=== PATIENT | female | born 1980 | race Caucasian/White ===

== ENCOUNTER 2016-09-10 15:02 | Inpatient (IN) ==
--- NOTE | 2016-09-10 15:21 | Emergency Department Note ---
Disposition Clinical Impression: Community acquired pneumonia, Transaminitis Sepsis Qualifiers: Sepsis type: sepsis due to unspecified organism Qualified Code(s): A41.9 - Sepsis, unspecified organism Disposition: Admitted As Inpatient Condition: Fair Time of Disposition: 16:21 SOB HPI - General Chief Complaint: ED Shortness of Breath/Dyspnea Stated Complaint: SADIA Time Seen by Provider: 09/10/16 15:09 Source: patient, family Mode of arrival: wheelchair Limitations: no limitations Nursing Notes Reviewed: Yes Vital Signs Reviewed: Yes - History of Present Illness Patient presents to the ED with the chief complaint of shortness of breath. Patient reports she was diagnosed with pneumonia about 3 weeks ago and was prescribed azithromycin. She finished this 4 days ago and has been steadily declining since then. She is complaining of increasing shortness of breath. States that she is getting dyspneic at rest now and she is also complaining of some pleuritic chest pain along her left inframammary fold radiating through to her back, despite her reports the pneumonia is on the right. She complains of a fever up to 104. Some nausea and vomiting as well. Mild productive cough that is green and yellow. No abdominal pain, pain or swelling in her legs. No history of DVT, PE or malignancy. - Related Data Home Medications Medication Instructions Recorded Confirmed Cholecalciferol (D-3) [Vitamin D] 1,000 unit PO DAILY 09/10/16 09/10/16 Gabapentin [Neurontin] 800 mg PO TID 09/10/16 09/10/16 Levothyroxine [Synthroid] 88 mcg PO DAILY 09/10/16 09/10/16 Trazodone HCl 100 mg PO DAILY 09/10/16 09/10/16 Allergies Allergy/AdvReac Type Severity Reaction Status Date / Time promethazine [From Phenergan] Allergy Cramping Verified 09/10/16 15:16 of the Muscles Constitutional: Reports: fever Cardiovascular: Reports: chest pain Respiratory: Reports: cough, dyspnea Past Medical History - Past Medical History Attestation: Yes The following information was validated with the patient. Source: patient Medical history: Reports: thyroid disease Psychiatric history: Reports: anxiety, ADHD, bipolar, depression, panic disorder - Social History Smoking Status: Never smoker Smokeless Tobacco Status: No Alcohol use: Reports: none Drug use: Reports: none Physical Exam - General General appearance: alert, anxious - Head Head exam: atraumatic, normocephalic, normal inspection - Eye Eye exam: Present: normal appearance, PERRL, EOMI - ENT ENT exam: mucous membranes dry - Neck Neck exam: Present: normal inspection, full ROM, trachea midline - Chest Chest inspection: Present: normal inspection, symmetric chest wall rise - Respiratory Respiratory exam: Present: respiratory distress (Health), other (Left lower lobe rhonchi). Absent: normal lung sounds bilaterally - Cardiovascular Cardiovascular exam: Present: normal rhythm, tachycardia - Abdominal Exam Abdominal exam: Present: soft, Non-Tender. Absent: tenderness, distention, guarding, rebound, rigidity - Extremities Exam Extremities exam: Present: normal inspection, full ROM. Absent: tenderness, pedal edema - Neurological Exam Neurological exam: Present: alert, oriented X3 - Psychiatric Psychiatric exam: Present: anxious - Skin Skin exam: Present: warm, intact, diaphoresis, pallor Course Course Narrative: Patient does meet sepsis criteria at triage. Will administer antibiotics and 30 mL/kg fluid bolus. We will admit - Reevaluation(s) Reevaluation #1: Chest x-ray shows a large left-sided pneumonia with effusion. Her d-dimer is elevated. However, I favor this to be an acute phase reactant rather than indication of pulmonary embolism. She has a fever. It is tachycardic and has pneumonia on chest x-ray. She is not hypotensive, and there are no murmurs on cardiac auscultation. She has been admitted to the hospitalist service and he did request additional medications such as Zosyn. They will also evaluate her transaminitis as in inpatient Vital Signs Temperature 101.2 F H 09/10/16 15:12 Pulse Rate 146 09/10/16 15:12 Respiratory Rate 20 09/10/16 15:12 Blood Pressure 120/78 09/10/16 15:12 O2 Sat by Pulse Oximetry 89 09/10/16 15:12 Temperature 99 F 09/10/16 19:51 Pulse Rate 128 09/10/16 19:51 Respiratory Rate 19 09/10/16 19:51 Blood Pressure 88/55 09/10/16 19:51 O2 Sat by Pulse Oximetry 96 09/10/16 19:51 Oxygen Delivery Oxygen Delivery Nasal Cannula Shortness of Breath/Dyspnea - Medical Records Medical records reviewed: Yes I reviewed the patient's medical records. - Lab Data Lab results reviewed: Yes I reviewed the patient's lab results. Result diagrams: 09/10/16 15:25 09/10/16 15:25 Lab Results 09/10/16 09/10/16 09/10/16 Range/Units 15:25 15:25 15:25 WBC 6.5 (4.3-11.1) K/mcL RBC 4.23 (3.82-4.97) M/mcL Hgb 13.4 (11.5-15.4) g/dL Hct 41.5 (35.3-44.9) % MCV 98.1 (83.0-100.0) fL MCH 31.7 (28.0-33.3) pg MCHC 32.3 (31.6-35.5) g/dL RDW 12.6 (11.5-14.5) % Plt Count 281 (140-400) K/mcL MPV 9.4 (9.4-12.4) fL Immature Gran % 0.8 (0-4) % Seg Neutrophils % 79.3 % Lymphocytes % 11.1 % Monocytes % 8.0 % Eosinophils % 0.3 % Basophils % 0.5 % Neutrophils # 5.1 (1.6-8.9) K/mcL Lymphocytes # 0.7 (0.6-4.6) K/mcL Monocytes # 0.5 (0.0-1.3) K/mcL Eosinophils # 0.0 (0.0-0.6) K/mcL Basophils # 0.0 (0.0-0.2) K/mcL D-Dimer (0-500) ng/mLFEU Sodium 139 (136-145) mEq/L Potassium 3.4 L (3.5-4.5) mEq/L Chloride 99 (98-109) mEq/L Carbon Dioxide 31 H (19-29) mEq/L BUN 9 (7-20) mg/dL Creatinine 0.65 (0.57-1.11) mg/dL Est GFR ( Amer) > 60 (> 60) Est GFR (Non-Af Amer) > 60 (> 60) BUN/Creatinine Ratio 14 (6-26) Glucose 145 H (70-99) mg/dL Calculated Osmolality 289 (280-300) Lactic Acid 2.7 H (0.5-2.2) mmol/L Calcium 9.1 (8.6-10.8) mg/dL Total Bilirubin 0.6 (0.2-1.2) mg/dL Direct Bilirubin 0.4 (0.0-0.5) mg/dL Indirect Bilirubin 0.2 (0.0-1.2) mg/dL AST 40 H (5-34) Units/L ALT 104 H (0-55) Units/L Alkaline Phosphatase 295 H (38-126) Units/L Troponin I (0-0.03) ng/mL B-Natriuretic Peptide (0-100) pg/mL Serum Total Protein 6.2 (6.0-8.3) g/dL Albumin 2.7 L (3.5-5.0) g/dL Globulin 3.5 (2.4-3.5) g/dL Albumin/Globulin Ratio 0.8 L (1.1-2.2) TSH 4.973 H (0.350-4.840) mcIU/mL Ur Specimen Adequacy Urine Color (Yellow) Urine Clarity (Clear) Urine pH (5.0-8.0) pH Units Ur Specific Boles (1.010-1.025) Urine Protein (Neg-Trace) mg/dL Urine Glucose (UA) (Normal) mg/dL Urine Ketones (Negative) mg/dL Urine Blood (Negative) Urine Nitrite (Negative) Urine Bilirubin (Negative) Urine Urobilinogen (Normal) mg/dL Ur Leukocyte Esterase (Negative) Urine Microscopic RBC (0-3) per hpf Urine Microscopic WBC (0-3) per hpf Ur Squamous Epith Cells (None-Few) per lpf Urine Bacteria (None-Few) per hpf Hyaline Casts (None-Few) per lpf Ur Culture Indicated? (NO) 09/10/16 09/10/16 09/10/16 Range/Units 15:25 15:25 15:25 WBC (4.3-11.1) K/mcL RBC (3.82-4.97) M/mcL Hgb (11.5-15.4) g/dL Hct (35.3-44.9) % MCV (83.0-100.0) fL MCH (28.0-33.3) pg MCHC (31.6-35.5) g/dL RDW (11.5-14.5) % Plt Count (140-400) K/mcL MPV (9.4-12.4) fL Immature Gran % (0-4) % Seg Neutrophils % % Lymphocytes % % Monocytes % % Eosinophils % % Basophils % % Neutrophils # (1.6-8.9) K/mcL Lymphocytes # (0.6-4.6) K/mcL Monocytes # (0.0-1.3) K/mcL Eosinophils # (0.0-0.6) K/mcL Basophils # (0.0-0.2) K/mcL D-Dimer 743 H (0-500) ng/mLFEU Sodium (136-145) mEq/L Potassium (3.5-4.5) mEq/L Chloride (98-109) mEq/L Carbon Dioxide (19-29) mEq/L BUN (7-20) mg/dL Creatinine (0.57-1.11) mg/dL Est GFR ( Amer) (> 60) Est GFR (Non-Af Amer) (> 60) BUN/Creatinine Ratio (6-26) Glucose (70-99) mg/dL Calculated Osmolality (280-300) Lactic Acid (0.5-2.2) mmol/L Calcium (8.6-10.8) mg/dL Total Bilirubin (0.2-1.2) mg/dL Direct Bilirubin (0.0-0.5) mg/dL Indirect Bilirubin (0.0-1.2) mg/dL AST (5-34) Units/L ALT (0-55) Units/L Alkaline Phosphatase (38-126) Units/L Troponin I 0.00 (0-0.03) ng/mL B-Natriuretic Peptide 51 (0-100) pg/mL Serum Total Protein (6.0-8.3) g/dL Albumin (3.5-5.0) g/dL Globulin (2.4-3.5) g/dL Albumin/Globulin Ratio (1.1-2.2) TSH (0.350-4.840) mcIU/mL Ur Specimen Adequacy Urine Color (Yellow) Urine Clarity (Clear) Urine pH (5.0-8.0) pH Units Ur Specific Boles (1.010-1.025) Urine Protein (Neg-Trace) mg/dL Urine Glucose (UA) (Normal) mg/dL Urine Ketones (Negative) mg/dL Urine Blood (Negative) Urine Nitrite (Negative) Urine Bilirubin (Negative) Urine Urobilinogen (Normal) mg/dL Ur Leukocyte Esterase (Negative) Urine Microscopic RBC (0-3) per hpf Urine Microscopic WBC (0-3) per hpf Ur Squamous Epith Cells (None-Few) per lpf Urine Bacteria (None-Few) per hpf Hyaline Casts (None-Few) per lpf Ur Culture Indicated? (NO) 09/10/16 Range/Units 15:43 WBC (4.3-11.1) K/mcL RBC (3.82-4.97) M/mcL Hgb (11.5-15.4) g/dL Hct (35.3-44.9) % MCV (83.0-100.0) fL MCH (28.0-33.3) pg MCHC (31.6-35.5) g/dL RDW (11.5-14.5) % Plt Count (140-400) K/mcL MPV (9.4-12.4) fL Immature Gran % (0-4) % Seg Neutrophils % % Lymphocytes % % Monocytes % % Eosinophils % % Basophils % % Neutrophils # (1.6-8.9) K/mcL Lymphocytes # (0.6-4.6) K/mcL Monocytes # (0.0-1.3) K/mcL Eosinophils # (0.0-0.6) K/mcL Basophils # (0.0-0.2) K/mcL D-Dimer (0-500) ng/mLFEU Sodium (136-145) mEq/L Potassium (3.5-4.5) mEq/L Chloride (98-109) mEq/L Carbon Dioxide (19-29) mEq/L BUN (7-20) mg/dL Creatinine (0.57-1.11) mg/dL Est GFR ( Amer) (> 60) Est GFR (Non-Af Amer) (> 60) BUN/Creatinine Ratio (6-26) Glucose (70-99) mg/dL Calculated Osmolality (280-300) Lactic Acid (0.5-2.2) mmol/L Calcium (8.6-10.8) mg/dL Total Bilirubin (0.2-1.2) mg/dL Direct Bilirubin (0.0-0.5) mg/dL Indirect Bilirubin (0.0-1.2) mg/dL AST (5-34) Units/L ALT (0-55) Units/L Alkaline Phosphatase (38-126) Units/L Troponin I (0-0.03) ng/mL B-Natriuretic Peptide (0-100) pg/mL Serum Total Protein (6.0-8.3) g/dL Albumin (3.5-5.0) g/dL Globulin (2.4-3.5) g/dL Albumin/Globulin Ratio (1.1-2.2) TSH (0.350-4.840) mcIU/mL Ur Specimen Adequacy See below A Urine Color Dark Yellow (Yellow) Urine Clarity Hazy A (Clear) Urine pH 7.5 (5.0-8.0) pH Units Ur Specific Boles > 1.030 H (1.010-1.025) Urine Protein Trace (Neg-Trace) mg/dL Urine Glucose (UA) Normal (Normal) mg/dL Urine Ketones Negative (Negative) mg/dL Urine Blood Negative (Negative) Urine Nitrite Negative (Negative) Urine Bilirubin Small H (Negative) Urine Urobilinogen 2.0 H (Normal) mg/dL Ur Leukocyte Esterase Moderate H (Negative) Urine Microscopic RBC 5-15 H (0-3) per hpf Urine Microscopic WBC 50-100 H (0-3) per hpf Ur Squamous Epith Cells Many H (None-Few) per lpf Urine Bacteria Few (None-Few) per hpf Hyaline Casts Few (None-Few) per lpf Ur Culture Indicated? YES A (NO) - Radiology Data Radiology results reviewed: Yes I reviewed the patient's radiology results. - EKG Data EKG attestation: Yes I reviewed and interpreted this EKG. EKG results narrative: Sinus tach, rate 145, NV interval 136, QRS 84, QTC 347, borderline left axis deviation, no acute ischemic changes S.B.A.R. - S.B.A.R. Situation: Demographics, MOA Background: Presenting Complaint, Relevant PMH, Meds, & Allergies Assessment: Vital Signs, Course and respsone to treatment, Exam Concerns, Patient/Family Expectation, Pertinant Lab Results, Outstanding Labs Recommendation: Barrier(s) to disposition, Recommendation based on pending studies, treatments, or consults S.B.A.R. Report Given to: Dr. Silvestre Carter Repor Time: 16:21 Attestation Statement - Attestation Attestation: I, Tristen Skinner, examined this patient and my medical decision-making was reviewed with the SOIL CHEMIST/PA/Advanced Practice Nurse/Resident Physician. I agree with the documented findings, disposition and treatment plan as described except to the extent set forth below. 36-year-old female presents with concerns of tachycardia, shortness of breath, chest pain. Patient states she was treated for pneumonia with azithromycin which ended yesterday. Patient states she has had failure of outpatient antibiotics in the past. Patient reports being febrile, tachycardic and dyspneic with exertion. Patient has pain to the left lower lateral chest with breathing and palpation. Patient satting 93% on room air, was tachycardic and febrile on initial evaluation.. Cardiac 2 145 with a sinus tachycardia. EKG did not show other signs of SVT with reentrant tachycardia or other rhythm abnormalities. X-ray shows a large infiltrate of the left lower lobe. D-dimer was ordered and returned positive however patient's symptoms are likely secondary to pneumonia and she does not likely have a PE as she is otherwise low risk for PE by history. Patient started on levofloxacin and IV fluids in the emergency department. She will be admitted to the hospitalist for further care and evaluation. Hospitalist requested Zosyn be started as well.
[2016-09-10] MEDS ORDERED: Levofloxacin 750 MG/150 ML 750 MG/150 ML BAG IVPB ONE (15:24)
[2016-09-10 15:39] LABS: Basophils % 0.5 %; Eosinophils % 0.3 %; Hematocrit 41.5 % (35.3-44.9); Hemoglobin 13.4 g/dL (11.5-15.4); Immature Granulocytes % 0.8 % (0-4); Lymphocytes # 0.7 K/mcL (0.6-4.6); Lymphocytes % 11.1 %; Mean Corpuscular HGB Conc 32.3 g/dL (31.6-35.5); Mean Corpuscular Hemoglobin 31.7 pg (28.0-33.3); Mean Corpuscular Volume 98.1 fL (83.0-100.0); Mean Platelet Volume 9.4 fL (9.4-12.4); Monocytes # 0.5 K/mcL (0.0-1.3); Neutrophils # 5.1 K/mcL (1.6-8.9); Platelet Count 281 K/mcL (140-400); Red Blood Count 4.23 M/mcL (3.82-4.97); Red Cell Distribution Width 12.6 % (11.5-14.5); Segmented Neutrophils % 79.3 %
[2016-09-10] MEDS: 0.9 % Sodium Chloride 1,000 ML IVC SCH ×3 (15:45→18:00)
[2016-09-10] MEDS ORDERED: *HR* HYDROmorphone (PF) 1 MG/ML SYRINGE IVP ONE (15:55)
[2016-09-10] MEDS ORDERED: Ondansetron 4 MG/2 ML VIAL IVP ONE (15:55)
[2016-09-10 15:59] LABS: Alanine Aminotransferase 104 Units/L (0-55); Albumin 2.7 g/dL (3.5-5.0); Albumin/Globulin Ratio 0.8 (1.1-2.2); Alkaline Phosphatase 295 Units/L (38-126); Aspartate Amino Transferase 40 Units/L (5-34); BUN/Creatinine Ratio 14 (6-26); Bilirubin,Direct 0.4 mg/dL (0.0-0.5); Bilirubin,Indirect 0.2 mg/dL (0.0-1.2); Bilirubin,Total 0.6 mg/dL (0.2-1.2); Blood Urea Nitrogen 9 mg/dL (7-20); Calcium 9.1 mg/dL (8.6-10.8); Carbon Dioxide 31 mEq/L (19-29); Chloride 99 mEq/L (98-109); Globulin 3.5 g/dL (2.4-3.5); Glucose 145 mg/dL (70-99); Osmolality,Calculated 289 (280-300); Potassium 3.4 mEq/L (3.5-4.5); Sodium 139 mEq/L (136-145); Total Protein 6.2 g/dL (6.0-8.3); eGFR For African Americans > 60 (> 60); eGFR For Non-African Americans > 60 (> 60)
[2016-09-10 16:00] LABS: Bilirubin,Urine Small (Negative); Blood,Urine Negative (Negative); Color,Urine Dark Yellow (Yellow); Glucose,Urine (UA) Normal (Normal); Ketones,Urine Negative (Negative); Leukocyte Esterase,Urine Moderate (Negative); Nitrite,Urine Negative (Negative); PH,Urine 7.5 pH Units (5.0-8.0); Protein,Urine Trace mg/dL (Neg-Trace); Specific Gravity,Urine > 1.030 (1.010-1.025)
[2016-09-10 16:05] LABS: Bacteria,Urine Few per hpf (None-Few); Hyaline Casts,Urine Few per lpf (None-Few); Squamous Epithelial Cell,Urine Many per lpf (None-Few); WBC,Urine 50-100 per hpf (0-3)
[2016-09-10 16:06] LABS: Clarity,Urine Hazy (Clear)
[2016-09-10] MEDS ORDERED: Piperacillin/Tazobactam 4.5 GM in D5% in Water (Mini-Bag+) 100 ML IVPB ONE (16:19)
[2016-09-10 16:20] LABS: Thyroid Stimulating Hormone 4.973 mcIU/mL (0.350-4.840)
[2016-09-10] MEDS ORDERED: *HR* Morphine 2 MG/ML SYRINGE IVP PRN (16:55)
[2016-09-10] MEDS ORDERED: Naloxone 0.4 MG/ML INJ IVP PRN (16:55)
[2016-09-10] MEDS ORDERED: Albuterol 2.5 MG/3 ML NEBULIZER IH PRN (17:00)
--- NOTE | 2016-09-10 17:13 | Internal Med History&Physical ---
<Kacey Baez M - Last Filed: 09/10/16 18:07> Date of Encounter: 09/10/16 Time of Encounter: 17:09 Assessment and Plan (1) Sepsis Current visit: Yes Status: Acute Patient with pneumonia, fever of 101.2 on presentation and tachycardia with HR to 140s. Initial lactate 2.7. Blood cultures drawn and sent. Recheck of lactate ordered 2L fluid boluses given in ED, continue with 0.9NS at 125mL/hr broad spectrum antibiotics started with Levaquin and zosyn. Qualifiers: Sepsis type: sepsis due to unspecified organism Qualified Code(s): A41.9 - Sepsis, unspecified organism (2) Community acquired pneumonia Current visit: Yes Status: Acute Patient reports she was diagnosed 3 weeks ago and completed a course of azithromycin. She continued to get worse. She reports the air-conditioning in her house was dirty and she tried to clean it and black mold came out. She became sick soon after they turned on the air conditioning. CXR shows left mid and lower lung consolidation and probable effusion most compatible with pneumonia. She is febrile and tachycardic as well. Levaquin and Zosyn IVPB IV fluids 0.9NS at 125mL/hr check s. pneumoniae, legionella, and mycoplasma titers sputum culture duoneb treatments QID mucinex BID incentive spirometry titrate O2 to maintain saturation > 92%. (3) Anxiety Current visit: Yes Status: Acute Patient with anxiety, bipolar and panic disorder. Continue home medications. Ativan 0.5mg PO TID PRN. (4) Transaminitis Current visit: Yes Status: Acute LFTs elevated with AST 40, ALT 104 and alk phos 295. May be secondary to sepsis. Will recheck LFTs with morning labs and if not improving, plan for RUQ ultrasound. (5) DVT prophylaxis Current visit: Yes Status: Acute anti-embolic stockings lovenox 40mg SQ daily Internal Medicine - H&P: HPI Chief complaint: shortness of breath Admitted From: Emergency Dept Plans for Post Hospital Care: Home History of present illness: Ms. Lomeli is a 36 year old female with hypothyroidism, anxiety and bipolar disorder, presented to emergency department today with complaints of shortness of breath, fever, productive cough. Patient reports that she was diagnosed 3 weeks ago with pneumonia and completed a course of azithromycin at that time, however her symptoms did not improve and continued to get worse. Patient reports she was hoping she would just get better on her own. Symptoms continued to progress until he she presented today. She reports pain on the left side when she takes a deep breath or when she coughs. She reports feeling short of breath, chills, sweats, fever, productive cough. She denies headache, lightheadedness, palpitations. She she reports occasional nausea, occasional poor appetite. She denies any diarrhea, dysuria or abdominal pain. Evaluation in the emergency department revealed she was septic with fever of 101.2, heart rate in the 140s. Chest x-ray showed left mid and lower lung consolidation and probable effusion most compatible with pneumonia. Patient's LFTs were also mildly elevated with AST of 40, ALT of 104, and alkaline phosphatase of 295. Troponin was negative, BNP was normal. UA was consistent with UTI. Patient was given 2 L of fluid bolus, blood cultures were drawn, lactate was elevated at 2.7, and broad-spectrum antibiotics were initiated with Levaquin and Zosyn. On exam, patient diaphoretic, pale, alert and oriented. She is mildly tachypneic, heart rate continues to be in the 140s. Lungs with diminished breath sounds and crackles on the left side. Past Med Surg Social Fam HX - Past Medical History Medical history: thyroid disease Psychiatric history: anxiety, ADHD, bipolar, depression, panic disorder - Past Surgical History Surgical History: no surgical history - Social History Smoking Status: Never smoker Smokeless Tobacco Status: No Alcohol use: none Drug use: none - Family History Mother Living Status: Still Living Hx Family Respiratory Disorders: Yes (asthma) Father Living Status: Still Living Hx Family Cardiac Disorders: Yes Internal Medicine - H&P: Meds Cholecalciferol (D-3) [Vitamin D] 1,000 unit PO DAILY 09/10/16 [History] Gabapentin [Neurontin] 800 mg PO TID 09/10/16 [History] Levothyroxine [Synthroid] 88 mcg PO DAILY 09/10/16 [History] Trazodone HCl 100 mg PO DAILY 09/10/16 [History] Allergies promethazine [From Phenergan] Allergy (Verified 09/10/16 15:16) Cramping of the Muscles All Systems PM: A 10-system review of systems was performed and is negative for pertinent findings except as documented above in the HPI. - Constitutional Constitutional: anorexia, chills, fever(s), night sweats, weakness - EENT Eyes: no change in vision, no discharge, no pain, no photophobia Ears: no ear discharge, no ear pain, no tinnitus Nose, mouth and throat: no dysphagia, no nasal discharge, no neck pain, no sore throat - Cardiovascular Cardiovascular ROS IM: diaphoresis, dyspnea, dyspnea on exertion, no chest pain , no lightheadedness, no palpitations, no syncope - Respiratory Respiratory: cough, dyspnea, dyspnea on exertion, pain on inspiration, chest congestion, excessive phlegm production, pain with cough, no wheezing - Gastrointestinal Gastrointestinal: no abdominal pain, no diarrhea, no hematemesis, no hematochezia, no melena, no nausea, no vomiting - Genitourinary Genitourinary: no change in urinary stream, no dysuria, no flank pain, no hematuria - Musculoskeletal Musculoskeletal ROS IM: no numbness, no tingling - Integumentary Integumentary IM: no rash, no unusual bruising - Neurological Neurological ROS: no confusion, no convulsions, no focal weakness, no numbness, no tingling, no tremor(s) - Hematologic/Lymphatic Hematologic/Lymphatic: no easy bruising - Constitutional Vitals: Temp Pulse Resp BP Pulse Ox 101.2 F H 144 18 120/78 99 09/10/16 15:12 09/10/16 15:47 09/10/16 15:47 09/10/16 15:12 09/10/16 15:47 General appearance: Present: mild distress, A&O X 3, pleasant - Head Head exam: Present: atraumatic, normocephalic - Eye Eye exam: Present: PERRL, conjuntiva pink, sclera anicteric Pupils: Present: PERRL - Neck Neck exam general surgery: Present: supple, trachea midline. Absent: lymphadenopathy - Respiratory Respiratory exam: Present: decreased breath sounds (left), rales (left). Absent : accessory muscle use, rhonchi, wheezes - Cardiovascular Cardiovascular exam: Present: +S1, +S2, tachycardia. Absent: diastolic murmur, gallop, rubs, systolic murmur - GI/Abdominal GI/Abdominal exam: Present: normal bowel sounds, soft, no peritoneal signs. Absent: distended, tenderness - Extremities Exam Extremities exam: Present: warm, radial pulses palpable and symetrical. Absent : calf tenderness, cyanotic, pedal edema - Neurological Exam Neurological exam: Present: CN II-XII intact, oriented X3, no focal deficits. Absent: facial droop, speech deficit - Skin Skin exam: Present: dry, intact Internal Med - H&P Results - Labs CBC & Chem 7: 09/10/16 15:25 09/10/16 15:25 Labs: All Lab Results (24 Hours) 09/10/16 09/10/16 09/10/16 Range/Units 15:25 15:25 15:25 WBC 6.5 (4.3-11.1) K/mcL RBC 4.23 (3.82-4.97) M/mcL Hgb 13.4 (11.5-15.4) g/dL Hct 41.5 (35.3-44.9) % MCV 98.1 (83.0-100.0) fL MCH 31.7 (28.0-33.3) pg MCHC 32.3 (31.6-35.5) g/dL RDW 12.6 (11.5-14.5) % Plt Count 281 (140-400) K/mcL MPV 9.4 (9.4-12.4) fL Immature Gran % 0.8 (0-4) % Seg Neutrophils % 79.3 % Lymphocytes % 11.1 % Monocytes % 8.0 % Eosinophils % 0.3 % Basophils % 0.5 % Neutrophils # 5.1 (1.6-8.9) K/mcL Lymphocytes # 0.7 (0.6-4.6) K/mcL Monocytes # 0.5 (0.0-1.3) K/mcL Eosinophils # 0.0 (0.0-0.6) K/mcL Basophils # 0.0 (0.0-0.2) K/mcL D-Dimer (0-500) ng/mLFEU Sodium 139 (136-145) mEq/L Potassium 3.4 L (3.5-4.5) mEq/L Chloride 99 (98-109) mEq/L Carbon Dioxide 31 H (19-29) mEq/L BUN 9 (7-20) mg/dL Creatinine 0.65 (0.57-1.11) mg/dL Est GFR ( Amer) > 60 (> 60) Est GFR (Non-Af Amer) > 60 (> 60) BUN/Creatinine Ratio 14 (6-26) Glucose 145 H (70-99) mg/dL Calculated Osmolality 289 (280-300) Lactic Acid 2.7 H (0.5-2.2) mmol/L Calcium 9.1 (8.6-10.8) mg/dL Total Bilirubin 0.6 (0.2-1.2) mg/dL Direct Bilirubin 0.4 (0.0-0.5) mg/dL Indirect Bilirubin 0.2 (0.0-1.2) mg/dL AST 40 H (5-34) Units/L ALT 104 H (0-55) Units/L Alkaline Phosphatase 295 H (38-126) Units/L Troponin I (0-0.03) ng/mL B-Natriuretic Peptide (0-100) pg/mL Serum Total Protein 6.2 (6.0-8.3) g/dL Albumin 2.7 L (3.5-5.0) g/dL Globulin 3.5 (2.4-3.5) g/dL Albumin/Globulin Ratio 0.8 L (1.1-2.2) TSH 4.973 H (0.350-4.840) mcIU/mL Ur Specimen Adequacy Urine Color (Yellow) Urine Clarity (Clear) Urine pH (5.0-8.0) pH Units Ur Specific [place] (1.010-1.025) Urine Protein (Neg-Trace) mg/dL Urine Glucose (UA) (Normal) mg/dL Urine Ketones (Negative) mg/dL Urine Blood (Negative) Urine Nitrite (Negative) Urine Bilirubin (Negative) Urine Urobilinogen (Normal) mg/dL Ur Leukocyte Esterase (Negative) Urine Microscopic RBC (0-3) per hpf Urine Microscopic WBC (0-3) per hpf Ur Squamous Epith Cells (None-Few) per lpf Urine Bacteria (None-Few) per hpf Hyaline Casts (None-Few) per lpf Ur Culture Indicated? (NO) 09/10/16 09/10/16 09/10/16 Range/Units 15:25 15:25 15:25 WBC (4.3-11.1) K/mcL RBC (3.82-4.97) M/mcL Hgb (11.5-15.4) g/dL Hct (35.3-44.9) % MCV (83.0-100.0) fL MCH (28.0-33.3) pg MCHC (31.6-35.5) g/dL RDW (11.5-14.5) % Plt Count (140-400) K/mcL MPV (9.4-12.4) fL Immature Gran % (0-4) % Seg Neutrophils % % Lymphocytes % % Monocytes % % Eosinophils % % Basophils % % Neutrophils # (1.6-8.9) K/mcL Lymphocytes # (0.6-4.6) K/mcL Monocytes # (0.0-1.3) K/mcL Eosinophils # (0.0-0.6) K/mcL Basophils # (0.0-0.2) K/mcL D-Dimer 743 H (0-500) ng/mLFEU Sodium (136-145) mEq/L Potassium (3.5-4.5) mEq/L Chloride (98-109) mEq/L Carbon Dioxide (19-29) mEq/L BUN (7-20) mg/dL Creatinine (0.57-1.11) mg/dL Est GFR ( Amer) (> 60) Est GFR (Non-Af Amer) (> 60) BUN/Creatinine Ratio (6-26) Glucose (70-99) mg/dL Calculated Osmolality (280-300) Lactic Acid (0.5-2.2) mmol/L Calcium (8.6-10.8) mg/dL Total Bilirubin (0.2-1.2) mg/dL Direct Bilirubin (0.0-0.5) mg/dL Indirect Bilirubin (0.0-1.2) mg/dL AST (5-34) Units/L ALT (0-55) Units/L Alkaline Phosphatase (38-126) Units/L Troponin I 0.00 (0-0.03) ng/mL B-Natriuretic Peptide 51 (0-100) pg/mL Serum Total Protein (6.0-8.3) g/dL Albumin (3.5-5.0) g/dL Globulin (2.4-3.5) g/dL Albumin/Globulin Ratio (1.1-2.2) TSH (0.350-4.840) mcIU/mL Ur Specimen Adequacy Urine Color (Yellow) Urine Clarity (Clear) Urine pH (5.0-8.0) pH Units Ur Specific [place] (1.010-1.025) Urine Protein (Neg-Trace) mg/dL Urine Glucose (UA) (Normal) mg/dL Urine Ketones (Negative) mg/dL Urine Blood (Negative) Urine Nitrite (Negative) Urine Bilirubin (Negative) Urine Urobilinogen (Normal) mg/dL Ur Leukocyte Esterase (Negative) Urine Microscopic RBC (0-3) per hpf Urine Microscopic WBC (0-3) per hpf Ur Squamous Epith Cells (None-Few) per lpf Urine Bacteria (None-Few) per hpf Hyaline Casts (None-Few) per lpf Ur Culture Indicated? (NO) 09/10/16 Range/Units 15:43 WBC (4.3-11.1) K/mcL RBC (3.82-4.97) M/mcL Hgb (11.5-15.4) g/dL Hct (35.3-44.9) % MCV (83.0-100.0) fL MCH (28.0-33.3) pg MCHC (31.6-35.5) g/dL RDW (11.5-14.5) % Plt Count (140-400) K/mcL MPV (9.4-12.4) fL Immature Gran % (0-4) % Seg Neutrophils % % Lymphocytes % % Monocytes % % Eosinophils % % Basophils % % Neutrophils # (1.6-8.9) K/mcL Lymphocytes # (0.6-4.6) K/mcL Monocytes # (0.0-1.3) K/mcL Eosinophils # (0.0-0.6) K/mcL Basophils # (0.0-0.2) K/mcL D-Dimer (0-500) ng/mLFEU Sodium (136-145) mEq/L Potassium (3.5-4.5) mEq/L Chloride (98-109) mEq/L Carbon Dioxide (19-29) mEq/L BUN (7-20) mg/dL Creatinine (0.57-1.11) mg/dL Est GFR ( Amer) (> 60) Est GFR (Non-Af Amer) (> 60) BUN/Creatinine Ratio (6-26) Glucose (70-99) mg/dL Calculated Osmolality (280-300) Lactic Acid (0.5-2.2) mmol/L Calcium (8.6-10.8) mg/dL Total Bilirubin (0.2-1.2) mg/dL Direct Bilirubin (0.0-0.5) mg/dL Indirect Bilirubin (0.0-1.2) mg/dL AST (5-34) Units/L ALT (0-55) Units/L Alkaline Phosphatase (38-126) Units/L Troponin I (0-0.03) ng/mL B-Natriuretic Peptide (0-100) pg/mL Serum Total Protein (6.0-8.3) g/dL Albumin (3.5-5.0) g/dL Globulin (2.4-3.5) g/dL Albumin/Globulin Ratio (1.1-2.2) TSH (0.350-4.840) mcIU/mL Ur Specimen Adequacy See below A Urine Color Dark Yellow (Yellow) Urine Clarity Hazy A (Clear) Urine pH 7.5 (5.0-8.0) pH Units Ur Specific [place] > 1.030 H (1.010-1.025) Urine Protein Trace (Neg-Trace) mg/dL Urine Glucose (UA) Normal (Normal) mg/dL Urine Ketones Negative (Negative) mg/dL Urine Blood Negative (Negative) Urine Nitrite Negative (Negative) Urine Bilirubin Small H (Negative) Urine Urobilinogen 2.0 H (Normal) mg/dL Ur Leukocyte Esterase Moderate H (Negative) Urine Microscopic RBC 5-15 H (0-3) per hpf Urine Microscopic WBC 50-100 H (0-3) per hpf Ur Squamous Epith Cells Many H (None-Few) per lpf Urine Bacteria Few (None-Few) per hpf Hyaline Casts Few (None-Few) per lpf Ur Culture Indicated? YES A (NO) - Diagnostic Studies Chest x-ray Additional comments: Chest X-Ray 09/10/16 15:12 IMPRESSION: Left mid and lower lung consolidation and probable effusion most compatible with pneumonia. Follow-up to resolution is recommended. D/ / Apoorva Ramos Cha, MD / Apoorva Ramos Cha, MD Interpreting Provider: Apoorva Ramos Cha, MD <Teresa Mayorga - Last Filed: 09/10/16 18:12> Date of Encounter: 09/10/16 Internal Medicine - H&P: HPI History of present illness: Ms. Lomeli is a 36 year old female All Systems PM: A 10-system review of systems was performed and is negative for pertinent findings except as documented above in the HPI. - Constitutional Vitals: Temp Pulse Resp BP Pulse Ox 99.6 F 135 20 109/71 96 09/10/16 17:15 09/10/16 17:15 09/10/16 17:22 09/10/16 17:22 09/10/16 17:15 Internal Med - H&P Results - Labs CBC & Chem 7: 09/10/16 15:25 09/10/16 15:25 - Attending Attestation I have personally performed a face to face evaluation on this patient and I discussed the assessment and plan with the nurse practitioner. I have reviewed and agree with the documented care plan. History and Exam by me shows: Ms. Lomeli is a 36 year old female with hypothyroidism, anxiety and bipolar disorder, presented to emergency department today with complaints of shortness of breath, fever, productive cough. Patient reports that she was diagnosed 3 weeks ago with pneumonia and completed a course of azithromycin at that time, however her symptoms did not improve and continued to get worse. Pt also c/o left lateral chest wall pain with coughing Gen: A,A, O x 3, lethargic Chest: Diminished BS b/l basal regions, no crackles, mild wheezing, rhonchi Left basal regions Heart : S1 S2 +, Tachycardia a/p 1. Severe sepsis with LLL PNA 2. LLL PNA - mostly bacterial Pt does meet severe sepsis criteria with Fever, Tachypneic, tachycardia, elevated WBC and source of inf as pneumonia since pt does look very toxic - would start her on broad spec abx Zosyn and Levofloxacin for atypical coverage too check strep pneumonia and Legionella, sputum cx
[2016-09-10] MEDS: Piperacillin/Tazobactam 3.375 GM in D5% in Water (Mini-Bag+) 100 ML IVPB SCH (18:40)
[2016-09-10] MEDS ORDERED: 0.9 % Sodium Chloride 500 ML IVC ONE ×2 (20:06→21:47)
[2016-09-10] MEDS: Ipratropium/Albuterol Neb 3 ML IH SCH ×2 (20:25→22:19)
[2016-09-10] MEDS: Ibuprofen 400 MG TABLET PO PRN (20:44)
[2016-09-10] MEDS: Gabapentin 400 MG CAPSULE PO SCH (20:44)
[2016-09-10] MEDS: Acetaminophen 325 MG TABLET PO PRN (22:41)
[2016-09-11] MEDS ORDERED: 0.9 % Sodium Chloride 500 ML IVC ONE ×2 (00:48→11:12)
[2016-09-11] MEDS: Piperacillin/Tazobactam 3.375 GM in D5% in Water (Mini-Bag+) 100 ML IVPB SCH ×3 (03:00→18:35)
[2016-09-11] MEDS: 0.9 % Sodium Chloride 1,000 ML IVC SCH ×3 (04:24→23:29)
[2016-09-11] MEDS: Ipratropium/Albuterol Neb 3 ML IH SCH ×4 (04:27→22:08)
[2016-09-11] MEDS: Ondansetron 4 MG/2 ML VIAL IVP PRN (04:49)
[2016-09-11] MEDS: *HR* HYDROcodone/Acet 5/325 mg TABLET PO PRN ×4 (04:49→20:19)
[2016-09-11] MEDS: *HR* Enoxaparin 40 MG/0.4 ML SYRINGE SQ SCH (06:10)
[2016-09-11 07:18] LABS: Basophils % 0.5 %; Eosinophils % 0.3 %; Hematocrit 34.4 % (35.3-44.9); Immature Granulocytes % 0.8 % (0-4); Lymphocytes # 1.3 K/mcL (0.6-4.6); Mean Corpuscular Hemoglobin 32.1 pg (28.0-33.3); Mean Corpuscular Volume 100.3 fL (83.0-100.0); Mean Platelet Volume 9.9 fL (9.4-12.4); Monocytes % 12.1 %; Neutrophils # 5.4 K/mcL (1.6-8.9); Platelet Count 233 K/mcL (140-400); Red Blood Count 3.43 M/mcL (3.82-4.97); Red Cell Distribution Width 12.8 % (11.5-14.5); Segmented Neutrophils % 69.3 %
[2016-09-11] MEDS: Ibuprofen 400 MG TABLET PO PRN ×2 (07:39→13:55)
[2016-09-11] MEDS: Gabapentin 400 MG CAPSULE PO SCH ×3 (07:51→20:18)
[2016-09-11 10:01] LABS: Albumin 2.2 g/dL (3.5-5.0); BUN/Creatinine Ratio 8 (6-26); Bilirubin,Total 1.1 mg/dL (0.2-1.2); Blood Urea Nitrogen 4 mg/dL (7-20); Calcium 8.2 mg/dL (8.6-10.8); Carbon Dioxide 27 mEq/L (19-29); Chloride 106 mEq/L (98-109); Glucose 105 mg/dL (70-99); Osmolality,Calculated 287 (280-300); Potassium 3.8 mEq/L (3.5-4.5); Sodium 140 mEq/L (136-145); eGFR For African Americans > 60 (> 60); eGFR For Non-African Americans > 60 (> 60)
[2016-09-11 10:19] LABS: Alanine Aminotransferase 66 Units/L (0-55); Albumin/Globulin Ratio 0.8 (1.1-2.2); Alkaline Phosphatase 225 Units/L (38-126); Aspartate Amino Transferase 15 Units/L (5-34); Bilirubin,Direct 0.6 mg/dL (0.0-0.5); Bilirubin,Indirect 0.5 mg/dL (0.0-1.2); Globulin 2.9 g/dL (2.4-3.5); Total Protein 5.1 g/dL (6.0-8.3)
--- NOTE | 2016-09-11 10:31 | Pulmonology Consult Note ---
Date of Encounter: 09/11/16 Time of Encounter: 10:30 Assessment and Plan (1) Community acquired pneumonia Current Visit: Yes Status: Acute 36-year-old woman with lobar consolidation consistent with community acquired pneumonia. It appears as though she has failed outpatient therapy and symptoms of persisted over the last 2 weeks overall picture would actually be concerning for empyema formation given degree of fevers night drenching night sweats and persistence of infectious symptoms. Plain chest radiograph was notable for lobar consolidation with concern for pleural effusion. I did perform bedside ultrasonography which was notable for a significant lobar consolidation with trivial amount of pleural fluid the size of which could not be aspirated safely at bedside. She clearly demonstrating sepsis pathophysiology and remains tachycardic despite appropriate fluid resuscitation encouragingly however her lactate has normalized and urine output remains appropriate. To this and blood urine and sputum cultures have been obtained and are pending Recommend continuation of antimicrobial therapy and until possibility of empyema is excluded (although bedside ultrasonography was not consistent with complex fluid collection" I would keep antimicrobial coverage broadened including anaerobic coverage and would treat for possibility of community- acquired MRSA. Strep pneumo and Legionella antigen are both negative although in the case of Legionella about a quarter of isolates will be negative for urine Legionella antigen and given findings and concern about exposure to air conditioning unit I would keep atypical coverage on at this time I have also ordered a noncontrasted CT scan of the thorax for further delineation of underlying chest parenchyma and pleural evaluation May consider additional small fluid challenge to see if this if there is improvement in tachycardia Keep nothing by mouth at midnight. Would likely proceed with bronchoscopy in the next 24-48 hours if no improvement clinical course and diagnosis remains unclear. I recommend chemical DVT prophylaxis while inpatient Thank you for the consultation Pulmonary we will continue to follow Dr Amanda will be taking over the Consult service tomorrow and I will sign out this patient to him for follow-up. (2) Sepsis Current Visit: Yes Status: Acute Qualifiers: Sepsis type: sepsis due to unspecified organism Qualified Code(s): A41.9 - Sepsis, unspecified organism (3) DVT prophylaxis Current Visit: Yes Status: Acute History of Present Illness Consult date: 09/11/16 Requesting physician: Gutierrez Salinas Reason for consult: pneumonia Chief complaint: Shortness of breath History of present illness: This is a very pleasant 36-year-old woman who is admitted withcommunity- acquired pneumonia. Apparently the patient was has been complaining of cough with purulent sputum production over the last 3 weeks. Was initially treated for "pneumonia on the right side" 3 weeks ago with a course of azithromycin however symptoms persisted and had actually gotten worse on the left with worsening pleuritic chest pain cough of greenish purulent sputum at times it is also been nini colored along with drenching night sweats and fevers. She has had a recent tooth that broke but fairly minor chip and there is no history of neglected teeth or severe dental caries. She denies intravenous drug use denies alcoholism no history of immunosuppressive agents no history of HIV or high-risk features that would put her at increased risk for this. She is a lifelong nonsmoker no recent travel she keeps a dog at home but no exotic pets she has noticed that she uses in in window air conditioning unit for which she is clean the filter may been exposed to "black mold" although nobody else around her is complaining of similar symptoms. She does endorse a history of recurrent bronchitis/pneumonia over the last 2 years Past Med Surg Social Fam HX - Past Medical History Medical history: thyroid disease Psychiatric history: anxiety, ADHD, bipolar, depression, panic disorder - Past Surgical History Surgical History: no surgical history - Social History Smoking Status: Never smoker Smokeless Tobacco Status: No Alcohol use: none Drug use: none - Family History Mother Living Status: Still Living Hx Family Respiratory Disorders: Yes (asthma) Father Living Status: Still Living Hx Family Cardiac Disorders: Yes Medications and Allergies Cholecalciferol (D-3) [Vitamin D] 1,000 unit PO DAILY 09/10/16 [History] Gabapentin [Neurontin] 800 mg PO TID 09/10/16 [History] Levothyroxine [Synthroid] 88 mcg PO DAILY 09/10/16 [History] Trazodone HCl 100 mg PO DAILY 09/10/16 [History] Allergies promethazine [From Phenergan] Allergy (Verified 09/10/16 15:16) Cramping of the Muscles All Systems: A 10-system review of systems was performed and is negative for pertinent findings except as documented above in the HPI. Physical Examination Vital Signs: Vital Signs, Last 4 Hours Temp Pulse Resp BP Pulse Ox 09/11/16 10:22 97.8 F 118 18 102/67 98 09/11/16 09:47 16 96/64 95 09/11/16 07:42 98 09/11/16 07:20 98.1 F 114 20 96/64 98 General appearance: no acute distress, other (Pale-appearing) ENT: oropharynx dry Neck: supple, no lymphadenopathy Effort: mildly labored, other (Exams notable for significant splinting with deep inspiration) Auscultation: left: clear, rales, right: rhonchi Cardiovascular: murmur noted, other (She is tachycardic but has a regular rhythm normal murmur) Gastrointestinal: normoactive bowel sounds, non-tender Extremities: no cyanosis, no edema, no clubbing, pink and warm, pulses normal, no ischemia or petechiae Musculoskeletal: no deformities normal mental status, non-focal exam mood appropriate Results - Laboratory Findings CBC and BMP: 09/11/16 06:20 09/11/16 09:12 PT/INR, D-dimer D-Dimer 743 ng/mLFEU (0-500) H 09/10/16 15:25 Abnormal lab findings: Abnormal lab results RBC 3.43 M/mcL (3.82-4.97) L 09/11/16 06:20 Hgb 11.0 g/dL (11.5-15.4) L D 09/11/16 06:20 Hct 34.4 % (35.3-44.9) L 09/11/16 06:20 MCV 100.3 fL (83.0-100.0) H 09/11/16 06:20 D-Dimer 743 ng/mLFEU (0-500) H 09/10/16 15:25 BUN 4 mg/dL (7-20) L 09/11/16 09:12 Creatinine 0.50 mg/dL (0.57-1.11) L 09/11/16 09:12 Glucose 105 mg/dL (70-99) H 09/11/16 09:12 Calcium 8.2 mg/dL (8.6-10.8) L 09/11/16 09:12 Direct Bilirubin 0.6 mg/dL (0.0-0.5) H 09/11/16 09:12 ALT 66 Units/L (0-55) H 09/11/16 09:12 Alkaline Phosphatase 225 Units/L (38-126) H 09/11/16 09:12 Serum Total Protein 5.1 g/dL (6.0-8.3) L 09/11/16 09:12 Albumin 2.2 g/dL (3.5-5.0) L 09/11/16 09:12 Albumin/Globulin Ratio 0.8 (1.1-2.2) L 09/11/16 09:12 TSH 4.973 mcIU/mL (0.350-4.840) H 09/10/16 15:25 Ur Specimen Adequacy See below A 09/10/16 15:43 Urine Clarity Hazy (Clear) A 09/10/16 15:43 Ur Specific [place] > 1.030 (1.010-1.025) H 09/10/16 15:43 Urine Bilirubin Small (Negative) H 09/10/16 15:43 Urine Urobilinogen 2.0 mg/dL (Normal) H 09/10/16 15:43 Ur Leukocyte Esterase Moderate (Negative) H 09/10/16 15:43 Urine Microscopic RBC 5-15 per hpf (0-3) H 09/10/16 15:43 Urine Microscopic WBC 50-100 per hpf (0-3) H 09/10/16 15:43 Ur Squamous Epith Cells Many per lpf (None-Few) H 09/10/16 15:43 Ur Culture Indicated? YES (NO) A 09/10/16 15:43 - Microbiology Findings Microbiology Findings: Microbiology, Last 48 Hours 09/10/16 23:30 Sputum Culture - Preliminary Sputum - Diagnostic Findings Chest x-ray: report reviewed, image reviewed - Clinical Findings Intake & Output: Intake & Output 09/10/16 09/11/16 09/11/16 23:59 07:59 15:59 Intake Total 1450 / 2450 1600 / 1600 Output Total 0 / 0 Balance 1450 / 2450 1600 / 1600 Weight 61.4 kg 61.8 kg Consult Discharge Plan - Plan Referrals: Wei Garza MD [Primary Care Provider] -
[2016-09-11] MEDS ORDERED: Vancomycin 1,000 MG in D5% in Water 250 ML IVPB SCH (12:00)
--- NOTE | 2016-09-11 12:06 | Internal Med Progress Note ---
<Max Cottrell - Last Filed: 09/11/16 12:09> Date of Encounter: 09/11/16 Time of Encounter: 11:00 - Assessment and plan (1) Severe sepsis Current Visit: Yes Status: Acute Assessment and plan: - recently completed course of azithromycin outpatient for diagnosed pneumonia - Upon admission to the emergency department, patient had a fever of 101.2, heart rate 146, respiratory rate 20. White blood cell count was 6.5 - Lactating emergency department was 2.7, this morning was 1.5 - Vital signs today remain tachycardic to 114, respiratory rate 20. Afebrile at 98.1. Blood pressure 96/64 (patient states she is chronically hypotensive asymptomatic) - Started on Zosyn, Levaquin. Added vancomycin this morning for MRSA coverage - Pulmonology consulted for possible pleural effusion tap, no fluid seen on ultrasound. Recommend CT chest, nothing by mouth status after midnight for possible bronchoscopy tomorrow morning. - Has received total of 2.5 L of normal saline, will give an additional 500 mL bolus this AM - Also receiving duo nebs, Mucinex with some relief (2) Community acquired pneumonia Current Visit: Yes Status: Acute Assessment and plan: - Plan as above - Zosyn, Levaquin, vancomycin - Failed outpatient treatment of azithromycin - Chest x-ray showed large left-sided pneumonia (3) Transaminitis Current Visit: Yes Status: Acute Assessment and plan: - AST 40, [id number], alkaline phosphatase 295 - Possible etiology of septic shock. Continue trend, treated as above (4) DVT prophylaxis Current Visit: Yes Status: Acute Assessment and plan: - Lovenox 40 - Time Spent With Patient 25 - 35 minutes - Subjective Interval history: Ms. Lomeli was seen and examined at bedside this morning. She states she is still feeling not well, stating that she expresses shortness of breath with exertion, fatigue, malaise. She continues to have a productive cough, however her color of the sputum has changed from yellow to white and remains thick. She denies any fevers/chills overnight. She states she thinks her breathing has improved since admission. She is also complaining of left-sided chest pain that is pleuritic in nature and located in the left lower rib cage. Of note, she also states she chronically runs hypotensive with systolic blood pressure in the 70s to 90s, and her primary care physician says it is nothing to worry about. - Constitutional Vitals: Temp Pulse Resp BP Pulse Ox 98.1 F 117 15 103/69 96 09/11/16 10:56 09/11/16 10:56 09/11/16 10:56 09/11/16 10:56 09/11/16 10:56 General appearance: Present: mild distress, A&O X 3, pleasant Exam: Gen.: Vitals noted. Mildly anxious appearing. AAOx3. Diaphoretic HEENT: PERRL/EOMI, oropharynx clear, Normocephalic, atraumatic Neck: Supple. No adenopathy. Cardiac: RRR, no murmur, +S1/S2. Tachycardic Pulmonary: Decreased breath sounds in lower lobes, particularly the left side. Crackles on left side. no wheezes, rales or rhonchi, equal chest expansion Abdomen: soft, nontender, BS noted, no guarding Back: Nontender throughout. MSK: ROM intact, no joint swelling noted Extremities: no BLE edema, nontender calf, no cyanosis or clubbing Neuro: A&Ox3, moves all extremities, no focal deficits Psych: Appropriate mood and behavior Internal Medicine: Result - Labs CBC & Chem 7: 09/11/16 06:20 09/11/16 09:12 Labs: Short CBC 09/11/16 Range/Units 06:20 WBC 7.8 (4.3-11.1) K/mcL Hgb 11.0 L D (11.5-15.4) g/dL Hct 34.4 L (35.3-44.9) % Plt Count 233 (140-400) K/mcL Neutrophils # 5.4 (1.6-8.9) K/mcL BMP 09/11/16 09:12 Sodium 140 Potassium 3.8 Chloride 106 Carbon Dioxide 27 BUN 4 L Creatinine 0.50 L Glucose 105 H Calcium 8.2 L Liver Function 09/11/16 Range/Units 09:12 Total Bilirubin 1.1 D (0.2-1.2) mg/dL Direct Bilirubin 0.6 H (0.0-0.5) mg/dL AST 15 (5-34) Units/L ALT 66 H (0-55) Units/L Alkaline Phosphatase 225 H (38-126) Units/L Albumin 2.2 L (3.5-5.0) g/dL - ABG Interpretation ABG results: PT/INR, D-dimer D-Dimer 743 ng/mLFEU (0-500) H 09/10/16 15:25 - VTE Documentation of Mechanical Device: Graduated compression elastic hosiery Consult Discharge Plan - Plan Referrals: Wei Garza MD [Primary Care Provider] - <Duke SalinasGutierrez T - Last Filed: 09/11/16 12:43> Date of Encounter: 09/11/16 - Constitutional Vitals: Temp Pulse Resp BP Pulse Ox 98.1 F 117 15 103/69 96 09/11/16 10:56 09/11/16 10:56 09/11/16 10:56 09/11/16 10:56 09/11/16 10:56 Internal Medicine: Result - Labs CBC & Chem 7: 09/11/16 06:20 09/11/16 09:12 Labs: Short CBC 09/11/16 Range/Units 06:20 WBC 7.8 (4.3-11.1) K/mcL Hgb 11.0 L D (11.5-15.4) g/dL Hct 34.4 L (35.3-44.9) % Plt Count 233 (140-400) K/mcL Neutrophils # 5.4 (1.6-8.9) K/mcL BMP 09/11/16 09:12 Sodium 140 Potassium 3.8 Chloride 106 Carbon Dioxide 27 BUN 4 L Creatinine 0.50 L Glucose 105 H Calcium 8.2 L Liver Function 09/11/16 Range/Units 09:12 Total Bilirubin 1.1 D (0.2-1.2) mg/dL Direct Bilirubin 0.6 H (0.0-0.5) mg/dL AST 15 (5-34) Units/L ALT 66 H (0-55) Units/L Alkaline Phosphatase 225 H (38-126) Units/L Albumin 2.2 L (3.5-5.0) g/dL - ABG Interpretation ABG results: PT/INR, D-dimer D-Dimer 743 ng/mLFEU (0-500) H 09/10/16 15:25 - Attending Attestation I examined this patient and my medical decision-making was reviewed with the Resident Physician on 09/11/16. I agree with the documented findings, disposition and treatment plan as described except to the extent set forth below. 36 Y/O F with recurrent pneumonias (per patient, but never hospitalized), failed outpatient therapy. Her only PMH is hypothyroidism She is seen at the bedside, complaining pleuritic chest pain She is chronically hypotensive She has tachycardia on exam with diminished air entry to her R lung zones. She was febrile to T >101 on admission, afebrile at time of review,Other systemic exam unremarkable Labs and Imaging reviewed: No leukocytosis or leukopenia , HB stable, UA is dirty, CXR with R sided pneumonia and pleural effusion. Lactic acidosis improved A/P: severe sepsis, lactic acidosis, BP is at baseline, but patient is tachycardic, continue IVF hydration with monitoring of intake and output, Consult pulmonology for Suspected R pleural effusion, add Levoflox and Vanco for coverage for MRSA and Atypicals. She is not hypoxic, keep telemetry and pulse Ox on. Pain control. Follow cultures Rest of details as in resident physicians documentation
[2016-09-11] MEDS: *HR* LORazepam 0.5 MG TABLET PO PRN ×2 (12:19→22:26)
[2016-09-11] MEDS: Vancomycin 1,000 MG in D5% in Water 250 ML IVPB SCH ×2 (13:14→23:20)
[2016-09-11] MEDS: Levofloxacin 750 MG/150 ML 750 MG/150 ML BAG IVPB SCH (16:08)
--- NOTE | 2016-09-11 18:58 | Electrocardiograph Report ---
[address] [address] Test Date: 2016-09-10 Pat Name: Eileen Lomeli Department: 104 Room: 2A24 Gender: F Credit Director: RANDY : 1980 Requested By: Santos Liu Order Number: [id number] Reading MD: Paul Key MD Measurements Intervals [place] Rate: 145 P: 47 NM: 136 QRS: -13 QRSD: 84 T: 13 QT: 263 QTc: 347 Interpretive Statements SINUS TACHYCARDIA Poor R wave progression Electronically Signed On 09-11-2016 18:57:10 EDT by Paul Key MD
[2016-09-11] MEDS: traZODone 50 MG TABLET PO SCH (23:21)
[2016-09-12 03:46] LABS: Hemoglobin 10.5 g/dL (11.5-15.4); Mean Corpuscular HGB Conc 31.8 g/dL (31.6-35.5); Mean Corpuscular Hemoglobin 31.3 pg (28.0-33.3); Mean Corpuscular Volume 98.5 fL (83.0-100.0); Mean Platelet Volume 9.2 fL (9.4-12.4); Platelet Count 254 K/mcL (140-400); Red Blood Count 3.35 M/mcL (3.82-4.97); Red Cell Distribution Width 12.8 % (11.5-14.5)
[2016-09-12] MEDS: Piperacillin/Tazobactam 3.375 GM in D5% in Water (Mini-Bag+) 100 ML IVPB SCH ×3 (03:46→20:56)
[2016-09-12] MEDS: *HR* HYDROcodone/Acet 5/325 mg TABLET PO PRN (03:46)
[2016-09-12 04:01] LABS: BUN/Creatinine Ratio 7 (6-26); Calcium 8.3 mg/dL (8.6-10.8); Carbon Dioxide 29 mEq/L (19-29); Chloride 108 mEq/L (98-109); Glucose 89 mg/dL (70-99); Osmolality,Calculated 292 (280-300); Potassium 3.3 mEq/L (3.5-4.5); Sodium 143 mEq/L (136-145); eGFR For African Americans > 60 (> 60); eGFR For Non-African Americans > 60 (> 60)
[2016-09-12 04:08] LABS: Blood Urea Nitrogen 4 mg/dL (7-20)
[2016-09-12] MEDS: Ipratropium/Albuterol Neb 3 ML IH SCH (05:08)
[2016-09-12] MEDS: *HR* LORazepam 0.5 MG TABLET PO PRN ×2 (05:16→12:12)
[2016-09-12] MEDS: *HR* Enoxaparin 40 MG/0.4 ML SYRINGE SQ SCH (05:16)
[2016-09-12] MEDS: Gabapentin 400 MG CAPSULE PO SCH ×3 (08:14→20:56)
[2016-09-12] MEDS: 0.9 % Sodium Chloride 1,000 ML IVC SCH ×2 (08:15→20:57)
--- NOTE | 2016-09-12 09:29 | Pulmonology Progress Note ---
Date of Encounter: 09/12/16 Time of Encounter: 08:00 Assessment and Plan (1) Community acquired pneumonia Current Visit: Yes Status: Acute Patient is clinically feeling slightly better today and continue current antibiotics with follow-up on cultures and sensitivity. Encourage incentive spirometry. (2) Pleural effusion, left Current Visit: Yes Status: Acute I have personally reviewed the CT chest with evidence of what appears to be loculated diffusion and explained to the patient about plastic thoracentesis and she was questioning if she can wait if she clinically feels better which is reasonable approach. I still feel it is appropriate for IR to evaluate patient. Subjective Principal diagnosis: Pneumonia Interval history: Patient feels slightly better and she is able to breathe deeper today Objective PUL Vital signs: Last Vital Signs Temp 98.4 F 09/12/16 07:29 Pulse 106 09/12/16 07:29 Resp 17 09/12/16 07:29 BP 107/67 09/12/16 07:29 Pulse Ox 97 09/12/16 07:54 General appearance: no acute distress Eyes: nonicteric ENT: oropharynx moist Neck: supple Effort: normal Auscultation: left: diminished breath sounds, other (Bronchial sounds), right: clear Percussion: left: dull, right: not dull Cardiovascular: regular rate and rhythm Gastrointestinal: normoactive bowel sounds, non-distended Extremities: no cyanosis normal mental status, non-focal exam mood appropriate Results - Laboratory Findings CBC and BMP: 09/12/16 03:38 09/12/16 03:38 PT/INR, D-dimer D-Dimer 743 ng/mLFEU (0-500) H 09/10/16 15:25 Abnormal lab findings: Abnormal lab results RBC 3.35 M/mcL (3.82-4.97) L 09/12/16 03:38 Hgb 10.5 g/dL (11.5-15.4) L 09/12/16 03:38 Hct 33.0 % (35.3-44.9) L 09/12/16 03:38 MPV 9.2 fL (9.4-12.4) L 09/12/16 03:38 D-Dimer 743 ng/mLFEU (0-500) H 09/10/16 15:25 Potassium 3.3 mEq/L (3.5-4.5) L 09/12/16 03:38 BUN 4 mg/dL (7-20) L 09/12/16 03:38 Calcium 8.3 mg/dL (8.6-10.8) L 09/12/16 03:38 Direct Bilirubin 0.6 mg/dL (0.0-0.5) H 09/11/16 09:12 ALT 66 Units/L (0-55) H 09/11/16 09:12 Alkaline Phosphatase 225 Units/L (38-126) H 09/11/16 09:12 Serum Total Protein 5.1 g/dL (6.0-8.3) L 09/11/16 09:12 Albumin 2.2 g/dL (3.5-5.0) L 09/11/16 09:12 Albumin/Globulin Ratio 0.8 (1.1-2.2) L 09/11/16 09:12 TSH 4.973 mcIU/mL (0.350-4.840) H 09/10/16 15:25 Ur Specimen Adequacy See below A 09/10/16 15:43 Urine Clarity Hazy (Clear) A 09/10/16 15:43 Ur Specific [place] > 1.030 (1.010-1.025) H 09/10/16 15:43 Urine Bilirubin Small (Negative) H 09/10/16 15:43 Urine Urobilinogen 2.0 mg/dL (Normal) H 09/10/16 15:43 Ur Leukocyte Esterase Moderate (Negative) H 09/10/16 15:43 Urine Microscopic RBC 5-15 per hpf (0-3) H 09/10/16 15:43 Urine Microscopic WBC 50-100 per hpf (0-3) H 09/10/16 15:43 Ur Squamous Epith Cells Many per lpf (None-Few) H 09/10/16 15:43 Ur Culture Indicated? YES (NO) A 09/10/16 15:43 - Microbiology Findings Microbiology Findings: Microbiology, Last 48 Hours 09/10/16 23:30 Sputum Culture - Preliminary Sputum - Diagnostic Findings CT scan - chest: report reviewed, image reviewed - Clinical Findings Intake & Output: Intake & Output 09/11/16 09/12/16 09/12/16 23:59 07:59 15:59 Intake Total 2340 / 2340 250 / 250 1000 / 1000 Balance 2340 / 2340 250 / 250 1000 / 1000 Weight 62.5 kg - VTE Documentation of Mechanical Device: Graduated compression elastic hosiery Consult Discharge Plan - Plan Referrals: Wei Garza MD [Primary Care Provider] -
[2016-09-12] MEDS: *HR* HYDROcodone/Acet 7.5/325 mg TABLET PO PRN ×2 (10:06→13:47)
[2016-09-12] MEDS: Levalbuterol Neb 1.25 MG/3 ML IH SCH ×3 (10:54→21:44)
[2016-09-12] MEDS: Vancomycin 1,000 MG in D5% in Water 250 ML IVPB SCH ×2 (11:56→22:52)
[2016-09-12] MEDS ORDERED: *HR* HYDROcodone/Acet 7.5/325 mg TABLET PO PRN (14:35)
[2016-09-12 16:18] LABS: Glucose,Pleural Fluid 57 mg/dL (No Ref Range); LDH,Pleural Fluid 802 Units/L (No Ref Range)
[2016-09-12 16:24] LABS: Total Protein,Pleural Fluid 2.9 g/dL (No Ref Range)
[2016-09-12 16:47] LABS: RBC,Pleural Fluid 0.003 M/mcL
[2016-09-12] MEDS: *HR* HYDROmorphone (PF) 1 MG/ML SYRINGE IVP PRN ×2 (17:01→20:57)
[2016-09-12] MEDS: Levofloxacin 750 MG/150 ML 750 MG/150 ML BAG IVPB SCH (17:04)
--- NOTE | 2016-09-12 18:07 | Internal Med Progress Note ---
Date of Encounter: 09/12/16 Time of Encounter: 10:30 - Assessment and plan (1) Sepsis Current Visit: Yes Status: Acute Assessment and plan: patient failed outpatient treatment with azithromycin. on admission, patient had fever, tachycardia, respiratory rate 20, lactate 2.7 etiology likely secondary to community acquired pneumonia- concern for empyema formation due to symptoms. chest CT showed left lower lobe and lingular pneumonia with partially loculated left parapneumonic pleural effusion. patient received aggressive fluid hydration. prelim blood cultures showed no growth. legionella and s.pneumo antigen negative. prelim sputum cultures showed no growth. patient on vanc, zosyn, levaquin. patient remains tachycardic today. Plan: pulm on board. patient had thoracentesis today with placement of left chest tube-awaiting fluid analysis. incentive spirometry continue with broad spectrum antibiotic coverage and follow cultures. possible thoracentesis in future. Qualifiers: Sepsis type: sepsis due to unspecified organism Qualified Code(s): A41.9 - Sepsis, unspecified organism (2) Community acquired pneumonia Current Visit: Yes Status: Acute Assessment and plan: plan as above. (3) Transaminitis Current Visit: Yes Status: Acute Assessment and plan: etiology likely related to septic shock. will re check LFTs (4) DVT prophylaxis Current Visit: Yes Status: Acute Assessment and plan: Lovenox - Subjective Interval history: 36 year old female evaluated at bedside. patient states she slept well last night, and she had no acute events overnight. she reports pain with cough on the left side. she denies nausea, omiting, diarrhea, fever, chills, shorntess of breath. she is having productive cough with green sputum production. she denies hemoptysis. she says her breathing is improved compared to before. - Constitutional Vitals: Temp Pulse Resp BP Pulse Ox 98.1 F 120 20 99/65 94 09/12/16 15:08 09/12/16 15:08 09/12/16 17:19 09/12/16 15:08 09/12/16 17:19 General appearance: Present: A&O X 3, pleasant, no acute distress, answers questions appropriately - Head Head exam: Present: atraumatic, normocephalic - Neck Neck exam general surgery: Present: supple, trachea midline - Respiratory Additional comments: decreased breath sounds on left side compared to right. - Cardiovascular Cardiovascular exam: Present: tachycardia - GI/Abdominal GI/Abdominal exam: Present: normal bowel sounds, soft. Absent: distended, tenderness - Extremities Exam Extremities exam: Absent: cyanotic, pedal edema - Neurological Exam Neurological exam: Present: alert, oriented X3, no focal deficits - Psychiatric Psychiatric exam: Present: normal affect, normal mood - Skin Skin exam: Present: intact Internal Medicine: Result - Labs CBC & Chem 7: 09/12/16 03:38 09/12/16 03:38 Labs: Short CBC 09/12/16 Range/Units 03:38 WBC 6.8 (4.3-11.1) K/mcL Hgb 10.5 L (11.5-15.4) g/dL Hct 33.0 L (35.3-44.9) % Plt Count 254 (140-400) K/mcL BMP 09/12/16 03:38 Sodium 143 Potassium 3.3 L Chloride 108 Carbon Dioxide 29 BUN 4 L Creatinine 0.57 Glucose 89 Calcium 8.3 L - ABG Interpretation ABG results: PT/INR, D-dimer D-Dimer 743 ng/mLFEU (0-500) H 09/10/16 15:25 - Impressions Impressions Chest X-Ray 09/12/16 08:29 IMPRESSION: 1. Status post placement of percutaneous drainage catheter with distal tip overlying medial aspect of left base. 2. Findings suggestive of mild worsening of left basilar pleuroparenchymal disease when compared to 09/10/2016. 3. Minimal increase of right basilar parenchymal disease/atelectasis with suggestion of trace right pleural effusion as described. 4. No evidence of pneumothorax. D/ / 09/12/2016 13:18:02 Paul Liu MD / jace Interpreting Provider: Paul Liu MD Thoracentesis 09/12/16 17:34 IMPRESSION: Successful ultrasound guided placement of a left chest tube. D/ / Donny Wadsworth MD / Donny Wadsworth MD Interpreting Provider: Donny Wadsworth MD - VTE Documentation of Mechanical Device: Graduated compression elastic hosiery Consult Discharge Plan - Plan Referrals: Wei Garza MD [Primary Care Provider] - 09/22/16 2:45 pm
--- NOTE | 2016-09-12 18:20 | Event Note ---
Date of Encounter: 09/12/16 Time of Encounter: 14:00 I examined this patient and my medical decision-making was reviewed with the Resident Physician on 09/12/16. I agree with the documented findings, disposition and treatment plan as described except to the extent set forth below. 36 Y/O F admitted and being managed foe severe sepsis secondary to community acquired pneumonia, she remains tachycardic, she is not febrile Her chest CT revealed Left sided pneumonias with significant pleural effusion, said to be loculated. IR was consulted and she had IR guided thoracentesis with pig tail this a.m. Pleural fluid work up and culture is pending Urine Culture also growing MSSA-pansensitive, blood culture is negative till date On examination, she is s/p thoracentesis and in mild painful distress, she has no gross neurologic deficits, chest exam with Left sided decreased air entry and rhonchi. She has a left pigtail with 400cc straw colored fluid collected already. Heart sounds are S1, S2, regular, tachycardic, abdomen is benign, and she has no pedal edema. Labs and Imaging reviewed: No leukocytosis, lactic acidosis has resolved. Chest CT from 09/12 noted. A/P *Severe sepsis from Community acquired pneumonia with lactic acidosis, *L parapneumonic pleural effusion *MSSA UTI *Anxiety/Bipolar disorder Continue current care, IR input appreciated, pulmonary is following, follow final pleural fluid work up, and ensure pain control. Condition is serious, high risk patient due to diagnosis of sepsis and use of IV opiates and vancomycin Rest of details as in resident physicians documentation
[2016-09-12] MEDS: traZODone 50 MG TABLET PO SCH (22:51)
[2016-09-12 23:00] LABS: Appearance of Pleural Fl Clear (Clear)
[2016-09-13] MEDS: Ondansetron 4 MG/2 ML VIAL IVP PRN ×2 (00:43→18:57)
[2016-09-13] MEDS: Piperacillin/Tazobactam 3.375 GM in D5% in Water (Mini-Bag+) 100 ML IVPB SCH ×3 (03:06→18:56)
[2016-09-13] MEDS: *HR* HYDROmorphone (PF) 1 MG/ML SYRINGE IVP PRN ×5 (03:06→22:08)
[2016-09-13] MEDS: Levalbuterol Neb 1.25 MG/3 ML IH SCH ×4 (03:37→21:37)
[2016-09-13] MEDS: *HR* LORazepam 0.5 MG TABLET PO PRN ×2 (04:16→11:53)
[2016-09-13] MEDS: 0.9 % Sodium Chloride 1,000 ML IVC SCH ×2 (06:02→19:49)
[2016-09-13] MEDS: *HR* Enoxaparin 40 MG/0.4 ML SYRINGE SQ SCH (06:02)
[2016-09-13] MEDS: Vancomycin 1,000 MG in D5% in Water 250 ML IVPB SCH ×3 (06:03→22:08)
[2016-09-13 06:19] LABS: Basophils % 0.4 %; Eosinophils % 0.4 %; Hematocrit 33.2 % (35.3-44.9); Hemoglobin 10.7 g/dL (11.5-15.4); Lymphocytes # 1.5 K/mcL (0.6-4.6); Lymphocytes % 21.6 %; Mean Corpuscular HGB Conc 32.2 g/dL (31.6-35.5); Mean Corpuscular Hemoglobin 31.9 pg (28.0-33.3); Mean Corpuscular Volume 99.1 fL (83.0-100.0); Mean Platelet Volume 8.9 fL (9.4-12.4); Monocytes # 0.8 K/mcL (0.0-1.3); Monocytes % 10.9 %; Neutrophils # 4.6 K/mcL (1.6-8.9); Platelet Count 270 K/mcL (140-400); Red Blood Count 3.35 M/mcL (3.82-4.97); Red Cell Distribution Width 12.8 % (11.5-14.5); Segmented Neutrophils % 65.7 %
[2016-09-13 06:33] LABS: Alanine Aminotransferase 29 Units/L (0-55); Albumin/Globulin Ratio 0.6 (1.1-2.2); Alkaline Phosphatase 175 Units/L (38-126); Aspartate Amino Transferase 6 Units/L (5-34); BUN/Creatinine Ratio 3 (6-26); Bilirubin,Total 0.6 mg/dL (0.2-1.2); Calcium 8.6 mg/dL (8.6-10.8); Carbon Dioxide 31 mEq/L (19-29); Chloride 104 mEq/L (98-109); Glucose 126 mg/dL (70-99); Osmolality,Calculated 288 (280-300); Potassium 3.4 mEq/L (3.5-4.5); Sodium 140 mEq/L (136-145); eGFR For African Americans > 60 (> 60); eGFR For Non-African Americans > 60 (> 60)
[2016-09-13 06:34] LABS: Albumin 1.9 g/dL (3.5-5.0); Blood Urea Nitrogen 2 mg/dL (7-20); Total Protein 4.9 g/dL (6.0-8.3)
--- NOTE | 2016-09-13 06:34 | Internal Med Progress Note ---
<Julee Pimentel - Last Filed: 09/13/16 14:47> Date of Encounter: 09/13/16 Time of Encounter: 06:32 - Assessment and plan (1) Sepsis Current Visit: Yes Status: Acute Assessment and plan: patient failed outpatient treatment with azithromycin. on admission, patient had fever, tachycardia, respiratory rate 20, lactate 2.7 etiology likely secondary to community acquired pneumonia- concern for empyema formation due to symptoms. chest CT showed left lower lobe and lingular pneumonia with partially loculated left parapneumonic pleural effusion. patient received aggressive fluid hydration. prelim blood cultures showed no growth. legionella and s.pneumo antigen negative. prelim sputum cultures showed no growth. urine culture growing MSSA patient on vanc, zosyn, levaquin. patient remains tachycardic today. Plan: final pleural fluid culture pending. gram stain showed no bacteria observed. CXR from today showed mild imrovement on exam. pulm on board. incentive spirometry continue with broad spectrum antibiotic coverage and follow cultures. pleural fluid analysis shows exudative pleural effusion. Qualifiers: Sepsis type: sepsis due to unspecified organism Qualified Code(s): A41.9 - Sepsis, unspecified organism (2) Community acquired pneumonia Current Visit: Yes Status: Acute Assessment and plan: plan as above. (3) Transaminitis Current Visit: Yes Status: Acute Assessment and plan: etiology likely related to septic shock. improved. (4) DVT prophylaxis Current Visit: Yes Status: Acute Assessment and plan: Lovenox - Subjective Interval history: 36 year old female evaluated at bedside. patient had no acute events overnight. she said she felt nauseous overnight but did not have any episodes of vomiting. She states that her breathing is improved since yesterday and that she is able to breathe deeper. patient is still having left sided pain with breathing. she denies any further complaints today. - Constitutional Vitals: Temp Pulse Resp BP Pulse Ox 98.1 F 128 18 97/53 95 09/13/16 04:53 09/13/16 04:53 09/13/16 04:53 09/13/16 04:53 09/13/16 04:53 General appearance: Present: A&O X 3, pleasant, no acute distress, answers questions appropriately - Head Head exam: Present: atraumatic, normocephalic - Neck Neck exam general surgery: Present: supple, trachea midline - Respiratory Additional comments: decreased left sided breath sounds. left sided pigtail catheter in place no signs of infection. - Cardiovascular Cardiovascular exam: Present: +S1, +S2, tachycardia Additional comments: regular rhythm, tachycardic - GI/Abdominal GI/Abdominal exam: Present: normal bowel sounds, soft. Absent: distended, tenderness - Extremities Exam Extremities exam: Absent: cyanotic, pedal edema - Neurological Exam Neurological exam: Present: alert, oriented X3, no focal deficits - Skin Skin exam: Present: intact Internal Medicine: Result - Labs CBC & Chem 7: 09/13/16 06:12 09/13/16 06:12 Labs: Short CBC 09/13/16 Range/Units 06:12 WBC 7.0 (4.3-11.1) K/mcL Hgb 10.7 L (11.5-15.4) g/dL Hct 33.2 L (35.3-44.9) % Plt Count 270 (140-400) K/mcL Neutrophils # 4.6 (1.6-8.9) K/mcL - ABG Interpretation ABG results: PT/INR, D-dimer D-Dimer 743 ng/mLFEU (0-500) H 09/10/16 15:25 - Impressions Impressions Chest X-Ray 09/12/16 08:29 IMPRESSION: 1. Status post placement of percutaneous drainage catheter with distal tip overlying medial aspect of left base. 2. Findings suggestive of mild worsening of left basilar pleuroparenchymal disease when compared to 09/10/2016. 3. Minimal increase of right basilar parenchymal disease/atelectasis with suggestion of trace right pleural effusion as described. 4. No evidence of pneumothorax. D/ / 09/12/2016 13:18:02 Paul Liu MD / jace Interpreting Provider: Paul Liu MD Thoracentesis 09/12/16 17:34 IMPRESSION: Successful ultrasound guided placement of a left chest tube. D/ / Donny Wadsworth MD / Donny Wadsworth MD Interpreting Provider: Donny Wadsworth MD - VTE Documentation of Mechanical Device: Graduated compression elastic hosiery Consult Discharge Plan - Plan Referrals: Wei Garza MD [Primary Care Provider] - 09/22/16 2:45 pm <BradGutierrez T - Last Filed: 09/13/16 15:48> Date of Encounter: 09/13/16 - Constitutional Vitals: Temp Pulse Resp BP Pulse Ox 99.1 F 127 16 103/73 95 09/13/16 11:32 09/13/16 11:32 09/13/16 11:32 09/13/16 11:32 09/13/16 11:32 Internal Medicine: Result - Labs CBC & Chem 7: 09/13/16 06:12 09/13/16 06:12 Labs: Short CBC 09/13/16 Range/Units 06:12 WBC 7.0 (4.3-11.1) K/mcL Hgb 10.7 L (11.5-15.4) g/dL Hct 33.2 L (35.3-44.9) % Plt Count 270 (140-400) K/mcL Neutrophils # 4.6 (1.6-8.9) K/mcL BMP 09/13/16 06:12 Sodium 140 Potassium 3.4 L Chloride 104 Carbon Dioxide 31 H BUN 2 L Creatinine 0.59 Glucose 126 H Calcium 8.6 Liver Function 09/13/16 Range/Units 06:12 Total Bilirubin 0.6 (0.2-1.2) mg/dL AST 6 (5-34) Units/L ALT 29 (0-55) Units/L Alkaline Phosphatase 175 H (38-126) Units/L Albumin 1.9 L (3.5-5.0) g/dL - ABG Interpretation ABG results: PT/INR, D-dimer D-Dimer 743 ng/mLFEU (0-500) H 09/10/16 15:25 - Impressions Impressions Chest X-Ray 09/12/16 08:29 IMPRESSION: 1. Status post placement of percutaneous drainage catheter with distal tip overlying medial aspect of left base. 2. Findings suggestive of mild worsening of left basilar pleuroparenchymal disease when compared to 09/10/2016. 3. Minimal increase of right basilar parenchymal disease/atelectasis with suggestion of trace right pleural effusion as described. 4. No evidence of pneumothorax. D/ / 09/12/2016 13:18:02 Paul Liu MD / jace Interpreting Provider: Paul Liu MD Chest X-Ray 09/13/16 07:39 IMPRESSION: Left chest tube in unchanged position. Moderate left pleural effusion and left mid to lower lung airspace disease has mildly improved since the prior examination. Mild right basilar airspace disease and mild increase in size of small right pleural effusion. D/ / 09/13/2016 12:14:56 Sabiha Jorgensen MD / mack Interpreting Provider: Sabiha Jorgensen MD - Attending Attestation I examined this patient and my medical decision-making was reviewed with the Resident Physician on 09/13/16. I agree with the documented findings, disposition and treatment plan as described except to the extent set forth below. 36 Y/O F admitted and being managed foe severe sepsis secondary to community acquired pneumonia,with complicated parapneumonic effusion-exudative Her chest CT revealed Left sided pneumonias with significant pleural effusion, said to be loculated. IR was consulted and she had IR guided thoracentesis with pig tail 09/12. Pleural fluid work up revealed exudate. Awaiting culture Seen and evaluated at bedside this a.m She denies chest pain, complained of anxiety/panic, and remains tachycardic she has no gross neurologic deficits, chest exam with Left sided decreased air entry and rhonchi. She has a left pigtail with <30cc drained today. Heart sounds are S1, S2, regular, tachycardic, abdomen is benign, and she has no pedal edema. She is not hypoxic and is not in respiratory distress Labs and Imaging reviewed: No leukocytosis, lactic acidosis has resolved. Chest CT from 09/12 noted. CXR this a.m with mild improvement in pleural effusion Urine Culture also growing MSSA-pansensitive, blood culture is negative till date A/P *Severe sepsis from Community acquired pneumonia with lactic acidosis, *L complicated parapneumonic pleural effusion *MSSA UTI *Anxiety/Bipolar disorder Continue current care, IR input appreciated, pulmonary is following, follow final pleural fluid work up, and ensure pain control. Condition is serious, high risk patient due to diagnosis of sepsis and use of IV opiates and vancomycin GIve 1L bolus for tachycardia, patient is receiving BZPs at home and is receiving same Low suspicion for IE, she has no risk factors and has no stigmata Increase the dose of Vancomycin, level is sub-therapeutic Rest of details as in resident physicians documentation
--- NOTE | 2016-09-13 08:00 | Pulmonology Progress Note ---
Date of Encounter: 09/13/16 Time of Encounter: 07:45 Assessment and Plan (1) Community acquired pneumonia Current Visit: Yes Status: Acute Patient is clinically feeling slightly better today and continue current antibiotics with follow-up on cultures and sensitivity. Encourage incentive spirometry. 09/13 patient feels slightly better and to continue current treatment and follow up on C&S (2) Pleural effusion, left Current Visit: Yes Status: Acute I have personally reviewed the CT chest with evidence of what appears to be loculated diffusion and explained to the patient about plastic thoracentesis and she was questioning if she can wait if she clinically feels better which is reasonable approach. I still feel it is appropriate for IR to evaluate patient. 09/13 patient had chest tube, fluid is thin and place on suction with portable CXR. Will send fluid for microbiology analysis. Subjective Principal diagnosis: Pneumonia Interval history: s/p chest tube placement and feels slightly better Objective PUL Vital signs: Last Vital Signs Temp 98.2 F 09/13/16 06:48 Pulse 121 09/13/16 06:48 Resp 18 09/13/16 06:48 BP 95/68 09/13/16 06:48 Pulse Ox 96 09/13/16 06:48 General appearance: no acute distress Eyes: nonicteric ENT: oropharynx moist Neck: supple Effort: normal Auscultation: left: diminished breath sounds, right: clear Percussion: left: dull (chest tube in place) Cardiovascular: regular rate and rhythm Gastrointestinal: normoactive bowel sounds Extremities: no cyanosis normal mental status, non-focal exam mood appropriate Results - Laboratory Findings CBC and BMP: 09/13/16 06:12 09/13/16 06:12 PT/INR, D-dimer D-Dimer 743 ng/mLFEU (0-500) H 09/10/16 15:25 Abnormal lab findings: Abnormal lab results RBC 3.35 M/mcL (3.82-4.97) L 09/13/16 06:12 Hgb 10.7 g/dL (11.5-15.4) L 09/13/16 06:12 Hct 33.2 % (35.3-44.9) L 09/13/16 06:12 MPV 8.9 fL (9.4-12.4) L 09/13/16 06:12 D-Dimer 743 ng/mLFEU (0-500) H 09/10/16 15:25 Potassium 3.4 mEq/L (3.5-4.5) L 09/13/16 06:12 Carbon Dioxide 31 mEq/L (19-29) H 09/13/16 06:12 BUN 2 mg/dL (7-20) L 09/13/16 06:12 BUN/Creatinine Ratio 3 (6-26) L 09/13/16 06:12 Glucose 126 mg/dL (70-99) H 09/13/16 06:12 Direct Bilirubin 0.6 mg/dL (0.0-0.5) H 09/11/16 09:12 Alkaline Phosphatase 175 Units/L (38-126) H 09/13/16 06:12 Lactate Dehydrogenase 90 Units/L (159-327) L 09/13/16 06:12 Serum Total Protein 4.9 g/dL (6.0-8.3) L 09/13/16 06:12 Albumin 1.9 g/dL (3.5-5.0) L 09/13/16 06:12 Albumin/Globulin Ratio 0.6 (1.1-2.2) L 09/13/16 06:12 TSH 4.973 mcIU/mL (0.350-4.840) H 09/10/16 15:25 Ur Specimen Adequacy See below A 09/10/16 15:43 Urine Clarity Hazy (Clear) A 09/10/16 15:43 Ur Specific [place] > 1.030 (1.010-1.025) H 09/10/16 15:43 Urine Bilirubin Small (Negative) H 09/10/16 15:43 Urine Urobilinogen 2.0 mg/dL (Normal) H 09/10/16 15:43 Ur Leukocyte Esterase Moderate (Negative) H 09/10/16 15:43 Urine Microscopic RBC 5-15 per hpf (0-3) H 09/10/16 15:43 Urine Microscopic WBC 50-100 per hpf (0-3) H 09/10/16 15:43 Ur Squamous Epith Cells Many per lpf (None-Few) H 09/10/16 15:43 Ur Culture Indicated? YES (NO) A 09/10/16 15:43 Pleural RBC 0.003 M/mcL (0.000-0.002) H 09/12/16 12:56 Pleural Tot Nuc Cell 1925 TNC/mcL (0-1000) H 09/12/16 12:56 Vancomycin Trough 5.5 mcg/mL (10-20) L 09/12/16 23:09 - Microbiology Findings Microbiology Findings: Microbiology, Last 48 Hours 09/10/16 23:30 Sputum Culture - Final Sputum - Clinical Findings Intake & Output: Intake & Output 09/12/16 09/12/16 09/13/16 15:59 23:59 07:59 Intake Total 1250 / 1250 1250 / 1250 1100 / 1100 Output Total 330 / 330 5 / 5 Balance 920 / 920 1230 / 1230 1095 / 1095 Weight 62.7 kg - VTE Documentation of Mechanical Device: Graduated compression elastic hosiery Consult Discharge Plan - Plan Referrals: Wei Garza MD [Primary Care Provider] - 09/22/16 2:45 pm
[2016-09-13] MEDS: Gabapentin 400 MG CAPSULE PO SCH ×3 (08:36→19:48)
[2016-09-13 09:03] LABS: Magnesium 1.2 mg/dL (1.6-2.6)
[2016-09-13] MEDS: Magnesium Sulfate 2 GM in D5% in Water 100 ML IVPB SCH ×2 (14:14→15:17)
[2016-09-13] MEDS ORDERED: 0.9 % Sodium Chloride 1,000 ML IVC ONE (15:47)
[2016-09-13] MEDS: Levofloxacin 750 MG/150 ML 750 MG/150 ML BAG IVPB SCH (17:03)
[2016-09-13] MEDS: Acetaminophen 325 MG TABLET PO PRN (19:48)
[2016-09-14] MEDS: traZODone 50 MG TABLET PO SCH (00:03)
[2016-09-14] MEDS: Piperacillin/Tazobactam 3.375 GM in D5% in Water (Mini-Bag+) 100 ML IVPB SCH ×3 (03:35→18:05)
[2016-09-14] MEDS: *HR* HYDROmorphone (PF) 1 MG/ML SYRINGE IVP PRN ×6 (03:36→23:43)
[2016-09-14] MEDS: 0.9 % Sodium Chloride 1,000 ML IVC SCH ×4 (03:36→22:45)
[2016-09-14] MEDS: Ondansetron 4 MG/2 ML VIAL IVP PRN (03:39)
[2016-09-14] MEDS: Levalbuterol Neb 1.25 MG/3 ML IH SCH ×4 (04:10→22:31)
[2016-09-14] MEDS: *HR* Enoxaparin 40 MG/0.4 ML SYRINGE SQ SCH (06:07)
[2016-09-14] MEDS: Vancomycin 1,000 MG in D5% in Water 250 ML IVPB SCH ×3 (06:07→22:51)
[2016-09-14 06:25] LABS: Basophils % 0.4 %; Eosinophils # 0.1 K/mcL (0.0-0.6); Eosinophils % 0.6 %; Hematocrit 34.1 % (35.3-44.9); Hemoglobin 10.9 g/dL (11.5-15.4); Immature Granulocytes % 1.2 % (0-4); Lymphocytes # 1.4 K/mcL (0.6-4.6); Lymphocytes % 16.5 %; Mean Corpuscular Hemoglobin 31.8 pg (28.0-33.3); Mean Corpuscular Volume 99.4 fL (83.0-100.0); Mean Platelet Volume 9.2 fL (9.4-12.4); Monocytes # 0.9 K/mcL (0.0-1.3); Monocytes % 11.1 %; Neutrophils # 5.9 K/mcL (1.6-8.9); Platelet Count 301 K/mcL (140-400); Red Blood Count 3.43 M/mcL (3.82-4.97); Red Cell Distribution Width 12.9 % (11.5-14.5); Segmented Neutrophils % 70.2 %
[2016-09-14 06:32] LABS: BUN/Creatinine Ratio 5 (6-26); Blood Urea Nitrogen 3 mg/dL (7-20); Calcium 8.3 mg/dL (8.6-10.8); Carbon Dioxide 30 mEq/L (19-29); Chloride 103 mEq/L (98-109); Glucose 123 mg/dL (70-99); Osmolality,Calculated 286 (280-300); Potassium 3.4 mEq/L (3.5-4.5); Sodium 139 mEq/L (136-145); eGFR For African Americans > 60 (> 60); eGFR For Non-African Americans > 60 (> 60)
[2016-09-14] MEDS: Gabapentin 400 MG CAPSULE PO SCH ×3 (07:37→21:28)
[2016-09-14] MEDS: Lactobacillus 1 EACH CAP.SPRINK PO SCH (07:37)
--- NOTE | 2016-09-14 07:45 | Pulmonology Progress Note ---
Date of Encounter: 09/14/16 Time of Encounter: 07:50 Assessment and Plan (1) Community acquired pneumonia Current Visit: Yes Status: Acute Overall patient feels slightly better and she can take deep breath. (2) Pleural effusion, left Current Visit: Yes Status: Acute Patient output is minimal and chest tube removed with some difficulty with removing the suture from the chest tube and patient was given Ativan for anxiety and also discussed with interventional radiologist about removing suture since it was placed by IR. We will remove suture with lidocaine used for patient's comfort. Subjective Principal diagnosis: Pneumonia Interval history: s/p chest tube placement and feels slightly better Objective PUL Vital signs: Last Vital Signs Temp 99.0 F 09/14/16 07:00 Pulse 120 09/14/16 07:00 Resp 17 09/14/16 07:00 BP 90/65 09/14/16 07:00 Pulse Ox 96 09/14/16 07:00 General appearance: no acute distress Eyes: nonicteric ENT: oropharynx moist Neck: supple Effort: normal Auscultation: left: diminished breath sounds, right: clear Percussion: left: dull Cardiovascular: regular rate and rhythm Gastrointestinal: normoactive bowel sounds Extremities: no cyanosis normal mental status, non-focal exam anxious Results - Laboratory Findings CBC and BMP: 09/14/16 05:50 09/14/16 05:50 PT/INR, D-dimer D-Dimer 743 ng/mLFEU (0-500) H 09/10/16 15:25 Abnormal lab findings: Abnormal lab results RBC 3.43 M/mcL (3.82-4.97) L 09/14/16 05:50 Hgb 10.9 g/dL (11.5-15.4) L 09/14/16 05:50 Hct 34.1 % (35.3-44.9) L 09/14/16 05:50 MPV 9.2 fL (9.4-12.4) L 09/14/16 05:50 D-Dimer 743 ng/mLFEU (0-500) H 09/10/16 15:25 Potassium 3.4 mEq/L (3.5-4.5) L 09/14/16 05:50 Carbon Dioxide 30 mEq/L (19-29) H 09/14/16 05:50 BUN 3 mg/dL (7-20) L 09/14/16 05:50 BUN/Creatinine Ratio 5 (6-26) L 09/14/16 05:50 Glucose 123 mg/dL (70-99) H 09/14/16 05:50 Calcium 8.3 mg/dL (8.6-10.8) L 09/14/16 05:50 Magnesium 1.2 mg/dL (1.6-2.6) L 09/13/16 06:12 Direct Bilirubin 0.6 mg/dL (0.0-0.5) H 09/11/16 09:12 Alkaline Phosphatase 175 Units/L (38-126) H 09/13/16 06:12 Lactate Dehydrogenase 90 Units/L (159-327) L 09/13/16 06:12 Serum Total Protein 4.9 g/dL (6.0-8.3) L 09/13/16 06:12 Albumin 1.9 g/dL (3.5-5.0) L 09/13/16 06:12 Albumin/Globulin Ratio 0.6 (1.1-2.2) L 09/13/16 06:12 TSH 4.973 mcIU/mL (0.350-4.840) H 09/10/16 15:25 Ur Specimen Adequacy See below A 09/10/16 15:43 Urine Clarity Hazy (Clear) A 09/10/16 15:43 Ur Specific [place] > 1.030 (1.010-1.025) H 09/10/16 15:43 Urine Bilirubin Small (Negative) H 09/10/16 15:43 Urine Urobilinogen 2.0 mg/dL (Normal) H 09/10/16 15:43 Ur Leukocyte Esterase Moderate (Negative) H 09/10/16 15:43 Urine Microscopic RBC 5-15 per hpf (0-3) H 09/10/16 15:43 Urine Microscopic WBC 50-100 per hpf (0-3) H 09/10/16 15:43 Ur Squamous Epith Cells Many per lpf (None-Few) H 09/10/16 15:43 Ur Culture Indicated? YES (NO) A 09/10/16 15:43 Pleural RBC 0.003 M/mcL (0.000-0.002) H 09/12/16 12:56 Pleural Tot Nuc Cell 1925 TNC/mcL (0-1000) H 09/12/16 12:56 Vancomycin Trough 8.6 mcg/mL (10-20) L 09/14/16 05:50 - Microbiology Findings Microbiology Findings: Microbiology, Last 48 Hours 09/12/16 13:00 Gram Stain - Final Pleural Fluid Body Fluid Culture - Preliminary 09/10/16 23:30 Sputum Culture - Final Sputum - Clinical Findings Intake & Output: Intake & Output 09/13/16 09/13/16 09/14/16 15:59 23:59 07:59 Intake Total 1104 / 1104 600 / 600 1100 / 1100 Output Total 5 / 5 0 / 0 0 / 0 Balance 1099 / 1099 600 / 600 1100 / 1100 Weight 62 kg - VTE Documentation of Mechanical Device: Graduated compression elastic hosiery Consult Discharge Plan - Plan Referrals: Wei Garza MD [Primary Care Provider] - 09/22/16 2:45 pm
[2016-09-14 08:14] LABS: Mycoplasma pneumoniae IgG 0.01 U/L (<=0.09)
[2016-09-14] MEDS ORDERED: Lidocaine 1% 20 ML MDV ID ONE (08:31)
[2016-09-14] MEDS ORDERED: *HR* LORazepam 2 MG/ML VIAL IVP ONE ×2 (08:52→08:57)
[2016-09-14] MEDS ORDERED: Potassium Chloride Elixir 20 MEQ/15 ML UDC PO ONE (09:20)
[2016-09-14 09:34] LABS: Magnesium 1.8 mg/dL (1.6-2.6)
--- NOTE | 2016-09-14 14:25 | Internal Med Progress Note ---
<Julee Pimentel - Last Filed: 09/14/16 14:20> Date of Encounter: 09/14/16 Time of Encounter: 10:30 - Assessment and plan (1) Sepsis Current Visit: Yes Status: Acute Assessment and plan: patient failed outpatient treatment with azithromycin. on admission, patient had fever, tachycardia, respiratory rate 20, lactate 2.7 etiology likely secondary to community acquired pneumonia- concern for empyema formation due to symptoms. chest CT showed left lower lobe and lingular pneumonia with partially loculated left parapneumonic pleural effusion. patient received aggressive fluid hydration. prelim blood cultures showed no growth. legionella and s.pneumo antigen negative. prelim sputum cultures showed no growth. urine culture growing MSSA patient on vanc, zosyn, levaquin. patient remains tachycardic today. Plan: repeat CT chest today showed persistent partially loculated hydropneumothorax with bubbles of gas within fluid collection, new trace right pleural efffusion, airspace consolidation in both lower lobes. CT pelvis showed no acute process. final pleural fluid culture pending. gram stain showed no bacteria observed. pulm on board. incentive spirometry continue with broad spectrum antibiotic coverage and follow cultures. pleural fluid analysis shows exudative pleural effusion. appreciate CT surgery recommendations. Qualifiers: Sepsis type: sepsis due to unspecified organism Qualified Code(s): A41.9 - Sepsis, unspecified organism (2) Community acquired pneumonia Current Visit: Yes Status: Acute Assessment and plan: plan as above. (3) Transaminitis Current Visit: Yes Status: Resolved Assessment and plan: etiology likely related to septic shock. improved. (4) DVT prophylaxis Current Visit: Yes Status: Acute Assessment and plan: Lovenox - Subjective Interval history: 36 year old female evaluated at bedside. Patient had her chest tube removed today by pulmonology. She was relatively anxious afterwards and was in a lot of pain. she required 1mg IV ativan. patient admits to pain at sight of chest tube placement. she reports her breathing is continuing to improve. she denies nay other complaints today. - Constitutional Vitals: Temp Pulse Resp BP Pulse Ox 98.1 F 132 18 106/69 96 09/14/16 11:02 09/14/16 11:02 09/14/16 11:02 09/14/16 11:02 09/14/16 11:02 General appearance: Present: A&O X 3, pleasant, no acute distress, answers questions appropriately - Head Head exam: Present: atraumatic, normocephalic - Neck Neck exam general surgery: Present: supple, trachea midline - Respiratory Additional comments: decreased breath sounds on lower lobes bilaterally. left upper lobe still decreased breath sounds, but improved aeration from prior. - Cardiovascular Cardiovascular exam: Present: tachycardia - GI/Abdominal GI/Abdominal exam: Present: normal bowel sounds. Absent: distended, tenderness - Extremities Exam Extremities exam: Present: radial pulses palpable and symetrical. Absent: cyanotic, pedal edema - Neurological Exam Neurological exam: Present: alert, oriented X3, no focal deficits - Psychiatric Psychiatric exam: Present: anxious - Skin Skin exam: Present: intact Internal Medicine: Result - Labs CBC & Chem 7: 09/14/16 05:50 09/14/16 05:50 Labs: Short CBC 09/14/16 Range/Units 05:50 WBC 8.4 (4.3-11.1) K/mcL Hgb 10.9 L (11.5-15.4) g/dL Hct 34.1 L (35.3-44.9) % Plt Count 301 (140-400) K/mcL Neutrophils # 5.9 (1.6-8.9) K/mcL BMP 09/14/16 05:50 Sodium 139 Potassium 3.4 L Chloride 103 Carbon Dioxide 30 H BUN 3 L Creatinine 0.57 Glucose 123 H Calcium 8.3 L - ABG Interpretation ABG results: PT/INR, D-dimer D-Dimer 743 ng/mLFEU (0-500) H 09/10/16 15:25 - Impressions Impressions Abdomen/Pelvis CT 09/14/16 09:00 IMPRESSION: 1. Persistent at least partially loculated left hydropneumothorax. A few bubbles of gas within the fluid collection are not unexpected following recent chest tube removal. There is new trace right pleural effusion. There is persistent airspace consolidation in both lower lobes, the right middle lobe, and lingula 2. No acute abdominopelvic process 3. 4.4 cm left ovarian cyst. A premenopausal patient, this is almost certainly benign. Follow-up pelvic ultrasound in 6-8 weeks could be considered to document resolution D/ / Carlos Mace MD / Carlos Mace MD Interpreting Provider: Carlos Mace MD Chest CT 09/14/16 09:00 IMPRESSION: 1. Persistent at least partially loculated left hydropneumothorax. A few bubbles of gas within the fluid collection are not unexpected following recent chest tube removal. There is new trace right pleural effusion. There is persistent airspace consolidation in both lower lobes, the right middle lobe, and lingula 2. No acute abdominopelvic process 3. 4.4 cm left ovarian cyst. A premenopausal patient, this is almost certainly benign. Follow-up pelvic ultrasound in 6-8 weeks could be considered to document resolution D/ / Carlos Mace MD / Carlos Mace MD Interpreting Provider: Carlos Mace MD - VTE Documentation of Mechanical Device: Graduated compression elastic hosiery Consult Discharge Plan - Plan Referrals: Wei Garza MD [Primary Care Provider] - 09/22/16 2:45 pm <Gutierrez Salinas T - Last Filed: 09/14/16 16:02> Date of Encounter: 09/14/16 - Constitutional Vitals: Temp Pulse Resp BP Pulse Ox 98.1 F 132 18 106/69 96 09/14/16 11:02 09/14/16 11:02 09/14/16 11:02 09/14/16 11:02 09/14/16 11:02 Internal Medicine: Result - Labs CBC & Chem 7: 09/14/16 05:50 09/14/16 05:50 Labs: Short CBC 09/14/16 Range/Units 05:50 WBC 8.4 (4.3-11.1) K/mcL Hgb 10.9 L (11.5-15.4) g/dL Hct 34.1 L (35.3-44.9) % Plt Count 301 (140-400) K/mcL Neutrophils # 5.9 (1.6-8.9) K/mcL BMP 09/14/16 05:50 Sodium 139 Potassium 3.4 L Chloride 103 Carbon Dioxide 30 H BUN 3 L Creatinine 0.57 Glucose 123 H Calcium 8.3 L - ABG Interpretation ABG results: PT/INR, D-dimer D-Dimer 743 ng/mLFEU (0-500) H 09/10/16 15:25 - Impressions Impressions Abdomen/Pelvis CT 09/14/16 09:00 IMPRESSION: 1. Persistent at least partially loculated left hydropneumothorax. A few bubbles of gas within the fluid collection are not unexpected following recent chest tube removal. There is new trace right pleural effusion. There is persistent airspace consolidation in both lower lobes, the right middle lobe, and lingula 2. No acute abdominopelvic process 3. 4.4 cm left ovarian cyst. A premenopausal patient, this is almost certainly benign. Follow-up pelvic ultrasound in 6-8 weeks could be considered to document resolution D/ / Carlos Mace MD / Carlos Mace MD Interpreting Provider: Carlos Mace MD Chest CT 09/14/16 09:00 IMPRESSION: 1. Persistent at least partially loculated left hydropneumothorax. A few bubbles of gas within the fluid collection are not unexpected following recent chest tube removal. There is new trace right pleural effusion. There is persistent airspace consolidation in both lower lobes, the right middle lobe, and lingula 2. No acute abdominopelvic process 3. 4.4 cm left ovarian cyst. A premenopausal patient, this is almost certainly benign. Follow-up pelvic ultrasound in 6-8 weeks could be considered to document resolution D/ / Cralos Mace MD / Carlos Mace MD Interpreting Provider: Carlos Mace MD - Attending Attestation I examined this patient and my medical decision-making was reviewed with the Resident Physician on 09/14/16. I agree with the documented findings, disposition and treatment plan as described except to the extent set forth below. 36 Y/O F admitted and being managed foe severe sepsis secondary to community acquired pneumonia,with complicated parapneumonic effusion-exudative Her chest CT revealed Left sided pneumonias with significant pleural effusion, said to be loculated. IR was consulted and she had IR guided thoracentesis with pig tail 09/12. Pleural fluid work up revealed exudate. Awaiting culture Overnight she spiked fevers, she remains tachycardic Repeat Chest CT shows hydropneumothorax, CT surgery has been consulted Seen and evaluated at bedside this a.m She denies chest pain, she states she is clinically improved She has no gross neurological deficits, chest exam with Left sided decreased air entry and rhonchi. She has a left pigtail with <30cc drained today. Heart sounds are S1, S2, regular, tachycardic, abdomen is benign, and she has no pedal edema. She is not hypoxic and is not in respiratory distress Labs and Imaging reviewed: No leukocytosis, lactic acidosis has resolved. Chest CT from 09/12 noted and repeat today noted. Abdomen and Pelvis CT: noted : L ovarian cyst, pelvic fluid noted Urine Culture also growing MSSA-pansensitive, blood culture is negative till date A/P *Severe sepsis from Community acquired pneumonia *L complicated parapneumonic pleural effusion *MSSA UTI *Anxiety/Bipolar disorder Continue current care, Pulmonary following, Thoracic surgery eval for new Chest CT findings Condition is serious, high risk patient due to diagnosis of sepsis and use of IV opiates and vancomycin Rest of details as in resident physicians documentation
--- NOTE | 2016-09-14 14:58 | Cardiothoracic Consult Note ---
Date of Encounter: 09/14/16 Time of Encounter: 14:52 Assessment and Plan (1) Pleural effusion, left Current Visit: Yes Status: Acute The patient has a persistent, partially loculated left pleural effusion as result of a community-acquired left lower lobe pneumonia. This was partially drained with a chest tube; however, the drainage decreased significantly and the tube was removed this morning. A follow-up chest CT performed after the chest tube removal redemonstrated the left parapneumonic effusion. Clinically, the patient is improving and her white count remains normal. I have spoken with Dr. Amanda and we both concur that the patient does not require further intervention at this time. The antibiotic should be continued. If the patient has a decline in her clinical condition however, the patient should probably undergo a left thoracotomy and decortication. The assessment and plan as outlined above was discussed with the patient and/or family members who expressed understanding and agreement. All questions were answered. - History of Present Illness Consult date: 09/14/16 Requesting physician: Gutierrez Salinas Consult reason: Left loculated pleural effusion evaluation. Chief complaint: Left-sided chest pain. History of present illness: Ms. Lomeli is a 36 year old lady who developed right sided pleuritic chest pain approximately 3-4 weeks ago. She thought that she had pneumonia and was evaluated at [facility]. She was given oral antibiotics and initially had some improvement. Unfortunately, the patient redeveloped left- sided chest pain, shortness of breath, chills, fever, and a productive cough shortly after she finished her antibiotic course. She was encouraged to stop be reevaluated by her family; however, initially declined. Eventually the symptoms became so severe that she was evaluated [facility]. The patient was found to have a left lower lobe pneumonia and admitted for antibiotic therapy. A chest CT performed August 12, 2016 revealed a left lower lobe and lingular pneumonia with a moderate parapneumonic pleural effusion. A chest tube was placed with partial resolution of the pleural effusion. The chest tube drainage decreased and the tube was removed this morning. A follow-up chest CT revealed a persistent, partially loculated left pleural effusion. I have been asked to evaluate the patient for possible surgical intervention and drainage of the fluid collection. Past Med Surg Social Fam HX - Past Medical History Medical history: thyroid disease Psychiatric history: anxiety, ADHD, bipolar, depression, panic disorder - Past Surgical History Surgical History: no surgical history - Social History Smoking Status: Never smoker Smokeless Tobacco Status: No Alcohol use: none Drug use: none - Family History Mother Living Status: Still Living Hx Family Respiratory Disorders: Yes (asthma) Father Living Status: Still Living Hx Family Cardiac Disorders: Yes Medications and Allergies Cholecalciferol (D-3) [Vitamin D] 1,000 unit PO DAILY 09/10/16 [History] Gabapentin [Neurontin] 800 mg PO TID 09/10/16 [History] Levothyroxine [Synthroid] 88 mcg PO DAILY 09/10/16 [History] Trazodone HCl 100 mg PO DAILY 09/10/16 [History] Allergies promethazine [From Phenergan] Allergy (Verified 09/10/16 15:16) Cramping of the Muscles All Systems Review: A 10-system review of systems was performed and is negative for pertinent findings except as documented above in the HPI. Physical Examination Vital Signs, Last 4 Hours Temp Pulse Resp BP Pulse Ox 09/14/16 11:02 98.1 F 132 18 106/69 96 General: Conversant, No Apparent Distress HEENT: Atraumatic, Normocephaly, Trachea midline Neck: No JVD, Normal carotid pulses Cardiac: Reg Rate and Rhythm, Normal S1 and S2, No Murmur Lungs: Decreased breath sounds (Both bases, left side worse than right side.), No Wheeze, Rales, Rhonchi Neuro: Alert and responsive, No focal deficits noted Vascular: Normal capillary refill Abdomen: Soft, Non-tender Skin: No rashes noted on visualized skin Musculoskeletal: No Chest Wall Tenderness Extremities: No Clubbing, No Cyanosis, No Edema, Normal Pulses Results 09/14/16 05:50 09/14/16 05:50 Lab Results, Last 24 hours 09/14/16 09/14/16 05:50 05:50 WBC 8.4 Hgb 10.9 L Hct 34.1 L Plt Count 301 Sodium 139 Potassium 3.4 L Chloride 103 Carbon Dioxide 30 H BUN 3 L Creatinine 0.57 Glucose 123 H Calcium 8.3 L Magnesium 1.8 - Imaging Chest Xray: image reviewed (Left lower lobe lung airspace disease, mildly improved. Persistent left pleural effusion.) Consult Discharge Plan - Plan Referrals: Wei Garza MD [Primary Care Provider] - 09/22/16 2:45 pm
[2016-09-14] MEDS ORDERED: levoFLOXacin 750 MG TABLET PO SCH (16:00)
[2016-09-14] MEDS: *HR* LORazepam 0.5 MG TABLET PO PRN ×2 (16:44→21:28)
[2016-09-14] MEDS ORDERED: Acetaminophen IV 500 MG/50 ML INFUS..BTL IVPB ONE (17:42)
[2016-09-15] MEDS: traZODone 50 MG TABLET PO SCH (00:12)
[2016-09-15] MEDS: Piperacillin/Tazobactam 3.375 GM in D5% in Water (Mini-Bag+) 100 ML IVPB SCH ×3 (03:28→18:53)
[2016-09-15] MEDS: *HR* HYDROmorphone (PF) 1 MG/ML SYRINGE IVP PRN ×3 (03:46→17:32)
[2016-09-15] MEDS: Levalbuterol Neb 1.25 MG/3 ML IH SCH ×2 (04:31→11:12)
[2016-09-15 06:09] LABS: Basophils # 0.1 K/mcL (0.0-0.2); Basophils % 0.6 %; Eosinophils # 0.2 K/mcL (0.0-0.6); Hematocrit 32.8 % (35.3-44.9); Hemoglobin 10.4 g/dL (11.5-15.4); Lymphocytes % 23.4 %; Mean Corpuscular HGB Conc 31.7 g/dL (31.6-35.5); Mean Corpuscular Hemoglobin 31.5 pg (28.0-33.3); Mean Corpuscular Volume 99.4 fL (83.0-100.0); Monocytes % 11.3 %; Platelet Count 296 K/mcL (140-400); Red Cell Distribution Width 12.9 % (11.5-14.5); Segmented Neutrophils % 59.7 %
[2016-09-15] MEDS: *HR* Enoxaparin 40 MG/0.4 ML SYRINGE SQ SCH (06:12)
[2016-09-15] MEDS: Vancomycin 1,000 MG in D5% in Water 250 ML IVPB SCH (06:26)
[2016-09-15 06:31] LABS: BUN/Creatinine Ratio 4 (6-26); Calcium 8.6 mg/dL (8.6-10.8); Carbon Dioxide 31 mEq/L (19-29); Chloride 104 mEq/L (98-109); Glucose 110 mg/dL (70-99); Magnesium 1.5 mg/dL (1.6-2.6); Osmolality,Calculated 289 (280-300); Potassium 3.6 mEq/L (3.5-4.5); Sodium 141 mEq/L (136-145); eGFR For African Americans > 60 (> 60); eGFR For Non-African Americans > 60 (> 60)
[2016-09-15 06:33] LABS: Blood Urea Nitrogen 2 mg/dL (7-20)
--- NOTE | 2016-09-15 06:40 | Internal Med Progress Note ---
<Julee Pimentel - Last Filed: 09/15/16 13:27> Date of Encounter: 09/15/16 Time of Encounter: 06:33 - Assessment and plan (1) Sepsis Current Visit: Yes Status: Acute Assessment and plan: patient failed outpatient treatment with azithromycin. on admission, patient had fever, tachycardia, respiratory rate 20, lactate 2.7 etiology likely secondary to community acquired pneumonia- concern for empyema formation due to symptoms. chest CT showed left lower lobe and lingular pneumonia with partially loculated left parapneumonic pleural effusion. patient received aggressive fluid hydration. prelim blood cultures showed no growth. legionella and s.pneumo antigen negative. prelim sputum cultures showed no growth. urine culture growing MSSA patient on vanc, zosyn, levaquin. patient remains tachycardic today. repeat CT chest showed persistent partially loculated hydropneumothorax with bubbles of gas within fluid collection, new trace right pleural efffusion, airspace consolidation in both lower lobes. CT pelvis showed no acute process. final pleural fluid culture pending. gram stain showed no bacteria observed. Plan: consult to infectious disease today. adjustments in pain medication made today. incentive spirometry continue with broad spectrum antibiotic coverage and follow cultures. appreciate CT surgery recommendations. Qualifiers: Sepsis type: sepsis due to unspecified organism Qualified Code(s): A41.9 - Sepsis, unspecified organism (2) Community acquired pneumonia Current Visit: Yes Status: Acute Assessment and plan: plan as above. (3) Transaminitis Current Visit: Yes Status: Resolved Assessment and plan: etiology likely related to septic shock. improved. (4) DVT prophylaxis Current Visit: Yes Status: Acute Assessment and plan: Lovenox - Subjective Interval history: 36 year old female evaluated at bedside. per nursing notes, she had no acute events overnight. she admits to some nausea that is relieved with zofran. she denies vomiting, fever, chills. she still has some shortness of breath but this is improving. she denies chest pain. - Constitutional Vitals: Temp Pulse Resp BP Pulse Ox 98.2 F 107 18 95/68 95 09/15/16 04:00 09/15/16 04:00 09/15/16 04:00 09/15/16 04:00 09/15/16 04:00 General appearance: Present: A&O X 3, pleasant, no acute distress, answers questions appropriately - Head Head exam: Present: atraumatic, normocephalic - Neck Neck exam general surgery: Present: supple, trachea midline - Respiratory Additional comments: right side clear to auscultation. left lower lobe has diminished breath sounds. Left upper lobe breath sounds also diminished but improved from prior. - Cardiovascular Cardiovascular exam: Present: tachycardia (still tachycardic, but improved from prior. ) - GI/Abdominal GI/Abdominal exam: Present: normal bowel sounds, soft. Absent: distended, tenderness - Extremities Exam Extremities exam: Absent: cyanotic, pedal edema - Neurological Exam Neurological exam: Present: alert, oriented X3, no focal deficits - Psychiatric Psychiatric exam: Present: normal affect, normal mood Internal Medicine: Result - Labs CBC & Chem 7: 09/15/16 05:29 09/15/16 05:29 Labs: Short CBC 09/14/16 09/15/16 Range/Units 05:50 05:29 WBC 8.4 8.4 (4.3-11.1) K/mcL Hgb 10.9 L 10.4 L (11.5-15.4) g/dL Hct 34.1 L 32.8 L (35.3-44.9) % Plt Count 301 296 (140-400) K/mcL Neutrophils # 5.9 5.0 (1.6-8.9) K/mcL BMP 09/14/16 05:50 Sodium 139 Potassium 3.4 L Chloride 103 Carbon Dioxide 30 H BUN 3 L Creatinine 0.57 Glucose 123 H Calcium 8.3 L - ABG Interpretation ABG results: PT/INR, D-dimer D-Dimer 743 ng/mLFEU (0-500) H 09/10/16 15:25 - Impressions Impressions Chest X-Ray 09/13/16 07:39 IMPRESSION: Left chest tube in unchanged position. Moderate left pleural effusion and left mid to lower lung airspace disease has mildly improved since the prior examination. Mild right basilar airspace disease and mild increase in size of small right pleural effusion. D/ / 09/13/2016 12:14:56 Sabiha Jorgensen MD / bcarter Interpreting Provider: Sabiha Jorgensen MD Abdomen/Pelvis CT 09/14/16 09:00 IMPRESSION: 1. Persistent at least partially loculated left hydropneumothorax. A few bubbles of gas within the fluid collection are not unexpected following recent chest tube removal. There is new trace right pleural effusion. There is persistent airspace consolidation in both lower lobes, the right middle lobe, and lingula 2. No acute abdominopelvic process 3. 4.4 cm left ovarian cyst. A premenopausal patient, this is almost certainly benign. Follow-up pelvic ultrasound in 6-8 weeks could be considered to document resolution D/ / Carlos Mace MD / Carlos Mace MD Interpreting Provider: Carlos Mace MD Chest CT 09/14/16 09:00 IMPRESSION: 1. Persistent at least partially loculated left hydropneumothorax. A few bubbles of gas within the fluid collection are not unexpected following recent chest tube removal. There is new trace right pleural effusion. There is persistent airspace consolidation in both lower lobes, the right middle lobe, and lingula 2. No acute abdominopelvic process 3. 4.4 cm left ovarian cyst. A premenopausal patient, this is almost certainly benign. Follow-up pelvic ultrasound in 6-8 weeks could be considered to document resolution D/ / Carlos Mace MD / Carlos Mace MD Interpreting Provider: Carlos Mace MD - VTE Documentation of Mechanical Device: Graduated compression elastic hosiery Consult Discharge Plan - Plan Referrals: Wei Garza MD [Primary Care Provider] - 09/22/16 2:45 pm <Gutierrez Salinas T - Last Filed: 09/15/16 16:10> Date of Encounter: 09/15/16 - Constitutional Vitals: Temp Pulse Resp BP Pulse Ox 98.3 F 117 18 98/68 93 09/15/16 15:45 09/15/16 15:45 09/15/16 15:45 09/15/16 15:45 09/15/16 15:45 Internal Medicine: Result - Labs CBC & Chem 7: 09/15/16 05:29 09/15/16 05:29 Labs: Short CBC 09/15/16 Range/Units 05:29 WBC 8.4 (4.3-11.1) K/mcL Hgb 10.4 L (11.5-15.4) g/dL Hct 32.8 L (35.3-44.9) % Plt Count 296 (140-400) K/mcL Neutrophils # 5.0 (1.6-8.9) K/mcL BMP 09/15/16 05:29 Sodium 141 Potassium 3.6 Chloride 104 Carbon Dioxide 31 H BUN 2 L Creatinine 0.52 L Glucose 110 H Calcium 8.6 - ABG Interpretation ABG results: PT/INR, D-dimer D-Dimer 743 ng/mLFEU (0-500) H 09/10/16 15:25 - Impressions Impressions Chest X-Ray 09/13/16 07:39 IMPRESSION: Left chest tube in unchanged position. Moderate left pleural effusion and left mid to lower lung airspace disease has mildly improved since the prior examination. Mild right basilar airspace disease and mild increase in size of small right pleural effusion. D/ / 09/13/2016 12:14:56 Sabiha Jorgensen MD / bcaer Interpreting Provider: Sabiha Jorgensen MD - Attending Attestation I examined this patient and my medical decision-making was reviewed with the Resident Physician on 09/15/16. I agree with the documented findings, disposition and treatment plan as described except to the extent set forth below. 36 Y/O F admitted and being managed for severe sepsis secondary to community acquired pneumonia,with complicated parapneumonic effusion-exudative She is clinically improved today She has no new complains She did not have fevers in 24 hrs She has no gross neurological deficits, chest exam with Left sided decreased air entry and rhonchi. Wound dressing on chest wall clean and dry. Heart sounds are S1, S2, regular, tachycardic, abdomen is benign, and she has no pedal edema. She is not hypoxic and is not in respiratory distress Labs and Imaging reviewed A/P *Severe sepsis from Community acquired pneumonia-improving. Consult ID for duration of treatment, giving all her cultures are negative *L complicated parapneumonic pleural effusion: As aove, improving *Tachycardia Sinus. D/C Duonebs/Xopenex. Obtain ECHO *MSSA UTI-Continue antibiotics *Anxiety/Bipolar disorder-Continue meds Continue current care, Pulmonary following, Thoracic surgery eval appreciated High risk patient due to diagnosis of sepsis and use of IV opiates and vancomycin Rest of details as in resident physicians documentation
[2016-09-15] MEDS: Lactobacillus 1 EACH CAP.SPRINK PO SCH (08:25)
[2016-09-15] MEDS: Gabapentin 400 MG CAPSULE PO SCH ×3 (08:26→20:01)
[2016-09-15] MEDS ORDERED: Magnesium Sulfate 4 GM in D5% in Water 100 ML IVPB ONE (11:22)
--- NOTE | 2016-09-15 11:27 | Cardiothoracic Progress Note ---
Date of Encounter: 09/15/16 Time of Encounter: 11:25 - Assessment and plan (1) Pleural effusion, left Current Visit: Yes Status: Acute The patient has a persistent, partially loculated left pleural effusion as result of a community-acquired left lower lobe pneumonia. Clinically, she is improving. She has no fever and the white count is normal. The patient should continue with intravenous antibiotics at the recommendation of the infectious disease service. The assessment and plan as outlined above was discussed with the patient and/or family members who expressed understanding and agreement. All questions were answered. - Subjective Interval history: The patient is sitting comfortably at the bedside. She has no complaints. Vital Signs, Last 4 Hours Pulse Ox 09/15/16 08:31 94 Oxgyen Flow Rate Oxygen Flow Rate (LPM) 2 Weight 09/13/16 09/14/16 09/15/16 23:59 23:59 23:59 Weight 62.7 kg 62 kg - Physical Examination General: Conversant, No Apparent Distress Neck: No JVD, Normal carotid pulses Cardiac: Reg Rate and Rhythm, Normal S1 and S2, No Murmur Lungs: Decreased breath sounds (Both bases, left side more diminished than right side.) Neuro: Alert and responsive, No focal deficits noted Vascular: Normal capillary refill Musculoskeletal: No Chest Wall Tenderness Extremities: No Clubbing, No Cyanosis, No Edema, Normal Pulses - Labs 09/15/16 05:29 09/15/16 05:29 Lab Results, Last 24 hours 09/15/16 09/15/16 05:29 05:29 WBC 8.4 Hgb 10.4 L Hct 32.8 L Plt Count 296 Sodium 141 Potassium 3.6 Chloride 104 Carbon Dioxide 31 H BUN 2 L Creatinine 0.52 L Glucose 110 H Calcium 8.6 Magnesium 1.5 L - VTE Documentation of Mechanical Device: Graduated compression elastic hosiery Consult Discharge Plan - Plan Referrals: Wei Garza MD [Primary Care Provider] - 09/22/16 2:45 pm
[2016-09-15] MEDS ORDERED: Ibuprofen 400 MG TABLET PO PRN (11:32)
[2016-09-15] MEDS ORDERED: Acetaminophen 325 MG TABLET PO PRN (11:32)
[2016-09-15] MEDS: *HR* OxyCODONE/APAP 10/325 TABLET PO PRN ×2 (12:03→20:16)
[2016-09-15] MEDS: Magnesium Sulfate 2 GM in D5% in Water 100 ML IVPB SCH ×2 (12:36→14:11)
[2016-09-15] MEDS: *HR* LORazepam 0.5 MG TABLET PO PRN ×2 (14:11→20:00)
--- NOTE | 2016-09-15 14:49 | Infectious Disease Consult ---
Date of Encounter: 09/15/16 Time of Encounter: 14:49 Assessment and Plan (1) Severe sepsis Status: Acute Assessment and plan: The patient had two SIRS criteria plus lactic acidosis and elevated liver enzymes. Likely secondary to pneumonia and loculated pleural effusion. Improved. The patient has been afebrile >24 hours. She continues to have tachycardia. Lactic acidosis has resolved. Elevated liver enzymes are improved. Blood cultures drawn 09/10/16 are NGTD x 2 sets. (2) Community acquired pneumonia Status: Acute Assessment and plan: Location: Left lower lobe. Failed outpatient therapy. Causative organism unclear. Sputum culture interpreted as NURTF. S. pneumo and Legionella UAT are negative. Given that the patient does not have any underlying comorbid conditions that would explain why the patient failed outpatient oral antibiotic therapy in combination with elevated LFTs, concern for possible tickborne illness. The patient denies any known tick bites and has not been outside for any prolonged period of time. CT chest showed LLL and left lingular pneumonia and moderate, partially loculated left parapneumonic pleural effusion. Add doxycycline empirically 100mg PO BID. Discontinue Vanc. Continue Zosyn 3.375 grams IV Q8H. Discontinue Levaquin. Duration of treatment depends on the clinical picture. We will continue to follow. (3) Pleural effusion, left Status: Acute Assessment and plan: Likely parapneumonic secondary to LLL pneumonia. Status post CT-guided drain placement. 20ml straw-colored fluid drained. Appears exudative, but culture is negative. Repeat CT scan shows redemonstration of partially loculated left hydropneumothorax. CTS has been consulted. Discussed case with Dr. Zaidi. Given that the patient continues to improve, no surgical intervention required at this time, but if patient declines, may need to consider thoracotomy with decortication. Continue antibiotics as above. Duration depends on the clinical picture. Continue serial chest imaging to evaluate for improvement. (4) Lactic acidosis Status: Acute Assessment and plan: Likely secondary to sepsis. Resolved. (5) Transaminitis Status: Resolved Assessment and plan: Etiology unclear: sepsis vs. tickborne illness vs. other. Improved. Abdominal exam benign. Continue to trend. (6) Anxiety Status: Chronic Infectious Disease HPI - Data of Consult Patient: new to practice Consult date: 09/15/16 Requesting Physician: Gutierrez Salinas MD Primary Care Provider: Wei Garza MD - Consult Narrative Reason for consult: Loculated Pleural Effusion History of present illness: Ms. Lomeli is a 36 year old female CC: Gutierrez Salinas MD Past Med Surg Social Fam HX - Past Medical History Attestation: Yes The following information was validated with the patient. Source: patient, old records reviewed, nursing notes reviewed Medical history: thyroid disease Psychiatric history: anxiety, ADHD, bipolar, depression, panic disorder - Past Surgical History Surgical History: no surgical history - Social History Smoking Status: Never smoker Smokeless Tobacco Status: No Alcohol use: none Drug use: none Occupational status: disabled Current living situation: Home - Independent Activity Level: Independent ambulation Recent Out of Country Travel Within the Last 8 Weeks: No Exposure or Possible Exposure to Illness During Travel: No - Family History Mother Living Status: Still Living Hx Family Respiratory Disorders: Yes (asthma) Father Living Status: Still Living Hx Family Cardiac Disorders: Yes Infectious Disease-CN:Meds Cholecalciferol (D-3) [Vitamin D] 1,000 unit PO DAILY 09/10/16 [History] Gabapentin [Neurontin] 800 mg PO TID 09/10/16 [History] Levothyroxine [Synthroid] 88 mcg PO DAILY 09/10/16 [History] Trazodone HCl 100 mg PO DAILY 09/10/16 [History] Allergies promethazine [From Phenergan] Allergy (Verified 09/10/16 15:16) Cramping of the Muscles All systems: reviewed and no additional remarkable complaints except as stated Exam - Constitutional Vitals: Temp Pulse Resp BP Pulse Ox 98.4 F 122 18 101/66 95 09/15/16 12:05 09/15/16 12:05 09/15/16 12:05 09/15/16 12:05 09/15/16 12:05 General appearance: average body habitus, cooperative, no acute distress - Head Head exam: Present: atraumatic, normal inspection, normocephalic - Eye Eye exam: Present: EOMI, normal appearance, PERRL Pupils: Present: normal accommodation - ENT ENT exam: Present: mucous membranes moist - Neck Neck exam: Present: normal inspection - Respiratory Respiratory exam: Present: decreased breath sounds (left posterior base), respiratory distress. Absent: rales, rhonchi, wheezes Additional comments: Previous chest tube site noted to the left posterior chest wall with dressing C/ D/I. - Cardiovascular Cardiovascular exam: Present: RRR, +S1, +S2 - GI/Abdominal GI/Abdominal exam: Present: normal bowel sounds, soft. Absent: distended, tenderness - Extremities Exam Extremities exam: Present: normal inspection. Absent: joint swelling, pedal edema, tenderness - Neurological Exam Neurological exam: Present: alert, oriented X3, no focal deficits - Psychiatric Psychiatric exam: Present: normal affect, normal mood - Skin Skin exam: Present: dry, intact, normal color, warm Infectious Disease CN: Results - Labs CBC & Chem 7: 09/15/16 05:29 09/15/16 05:29 Cultures: Cultures 09/12/16 13:00 Gram Stain - Final Pleural Fluid Body Fluid Culture - Preliminary 09/10/16 23:30 Sputum Culture - Final Sputum Serology: Serology 09/12/16 Range/Units 12:56 Pleural Fluid Volume 20.0 mL Pleural Appearance Clear (Clear) Pleural pH 7.50 (No Ref Range) pH Units Pleural RBC 0.003 H (0.000 - 0.002) M/mcL Pleural Tot Nuc Cell 1925 H (0-1000) TNC/mcL Pleural Neutrophils 90.0 % Pleural Band Neuts 3.0 % Pleural Eosinophils Test Not Performed Pleural Basophils Test Not Performed Pleural Lymphocytes % 6.0 % Pleural Monocytes % Test Not Performed Pleural Other Cells % 1.0 % Pleural Total Protein 2.9 (No Ref Range) g/dL Pleural LDH 802 (No Ref Range) Units/L Pleural Glucose 57 (No Ref Range) mg/dL - VTE Documentation of Mechanical Device: Graduated compression elastic hosiery Consult Discharge Plan - Plan Referrals: Wei Garza MD [Primary Care Provider] - 09/22/16 2:45 pm - Attending Attestation I examined this patient and my medical decision-making was reviewed with the Resident Physician. I agree with the documented findings, disposition and treatment plan as described except to the extent set forth below. Patient is a 36-year-old woman with past medical history mentioned below was admitted to [facility] for recurrent pneumonia with severe sepsis lactic acidosis with elevated LFTs and loculated pleural effusion. Patient initially was evaluated by surgery and a bedside ultrasound eighth of the fluid was too little so she was sent to interventional radiology who tapped her pleural effusion and it looks like it was exudative. Patient was started on broad- spectrum antibiotics, we were consulted to evaluate the patient make further recommendations. Currently patient continues to have fever otherwise she tells me that shes feeling okay. Physical exam is really unremarkable other than for tachycardia. Patient tells me she hasnt received any anti-depressant anxiolytic or psychotic medication for over 2 years now. Im not clear if the pneumonia is the cause of the fever or if there is another underlying condition. Patient does not work and apparently she doesnt go outside much and she denies any history of tick bite that she was aware of or rash in the recent past. Denies any recent history of arthralgia. At this point we will check some baseline labs including inflammatory markers. Await cultures to finalize. Continue broad-spectrum antibiotics. DC levofloxacin and start doxycycline empirically. We'll continue to follow closely.
--- NOTE | 2016-09-15 17:03 | Pulmonology Progress Note ---
Date of Encounter: 09/15/16 Time of Encounter: 08:45 Assessment and Plan (1) Community acquired pneumonia Current Visit: Yes Status: Acute Patient is feeling better clinically and I still feel continue current treatment and if clinically worsen then she will need surgical intervention or even multiple chest tubes. (2) Pleural effusion, left Current Visit: Yes Status: Acute Patient output is minimal and chest tube removed with some difficulty with removing the suture from the chest tube and patient was given Ativan for anxiety and also discussed with interventional radiologist about removing suture since it was placed by IR. We will remove suture with lidocaine used for patient's comfort. Subjective Principal diagnosis: Pneumonia Interval history: Patient still feels clinically she is feeling better. Objective PUL Vital signs: Last Vital Signs Temp 98.3 F 09/15/16 15:45 Pulse 117 09/15/16 15:45 Resp 18 09/15/16 15:45 BP 98/68 09/15/16 15:45 Pulse Ox 93 09/15/16 15:45 General appearance: no acute distress Eyes: nonicteric ENT: oropharynx moist Neck: supple Effort: normal Auscultation: left: diminished breath sounds, right: clear Percussion: left: dull, right: not dull Cardiovascular: regular rate and rhythm Gastrointestinal: normoactive bowel sounds, non-distended Extremities: no cyanosis normal mental status, non-focal exam mood appropriate Results - Laboratory Findings CBC and BMP: 09/15/16 05:29 09/15/16 05:29 PT/INR, D-dimer D-Dimer 743 ng/mLFEU (0-500) H 09/10/16 15:25 Abnormal lab findings: Abnormal lab results RBC 3.30 M/mcL (3.82-4.97) L 09/15/16 05:29 Hgb 10.4 g/dL (11.5-15.4) L 09/15/16 05:29 Hct 32.8 % (35.3-44.9) L 09/15/16 05:29 MPV 9.0 fL (9.4-12.4) L 09/15/16 05:29 D-Dimer 743 ng/mLFEU (0-500) H 09/10/16 15:25 Carbon Dioxide 31 mEq/L (19-29) H 09/15/16 05:29 BUN 2 mg/dL (7-20) L 09/15/16 05:29 Creatinine 0.52 mg/dL (0.57-1.11) L 09/15/16 05:29 BUN/Creatinine Ratio 4 (6-26) L 09/15/16 05:29 Glucose 110 mg/dL (70-99) H 09/15/16 05:29 Magnesium 1.5 mg/dL (1.6-2.6) L 09/15/16 05:29 Direct Bilirubin 0.6 mg/dL (0.0-0.5) H 09/11/16 09:12 Alkaline Phosphatase 175 Units/L (38-126) H 09/13/16 06:12 Lactate Dehydrogenase 90 Units/L (159-327) L 09/13/16 06:12 Serum Total Protein 4.9 g/dL (6.0-8.3) L 09/13/16 06:12 Albumin 1.9 g/dL (3.5-5.0) L 09/13/16 06:12 Albumin/Globulin Ratio 0.6 (1.1-2.2) L 09/13/16 06:12 TSH 4.973 mcIU/mL (0.350-4.840) H 09/10/16 15:25 Ur Specimen Adequacy See below A 09/10/16 15:43 Urine Clarity Hazy (Clear) A 09/10/16 15:43 Ur Specific [place] > 1.030 (1.010-1.025) H 09/10/16 15:43 Urine Bilirubin Small (Negative) H 09/10/16 15:43 Urine Urobilinogen 2.0 mg/dL (Normal) H 09/10/16 15:43 Ur Leukocyte Esterase Moderate (Negative) H 09/10/16 15:43 Urine Microscopic RBC 5-15 per hpf (0-3) H 09/10/16 15:43 Urine Microscopic WBC 50-100 per hpf (0-3) H 09/10/16 15:43 Ur Squamous Epith Cells Many per lpf (None-Few) H 09/10/16 15:43 Ur Culture Indicated? YES (NO) A 09/10/16 15:43 Pleural RBC 0.003 M/mcL (0.000-0.002) H 09/12/16 12:56 Pleural Tot Nuc Cell 1925 TNC/mcL (0-1000) H 09/12/16 12:56 - Microbiology Findings Microbiology Findings: Microbiology, Last 48 Hours 09/12/16 13:00 Gram Stain - Final Pleural Fluid Body Fluid Culture - Preliminary - Diagnostic Findings CT scan - chest: report reviewed, image reviewed - Clinical Findings Intake & Output: Intake & Output 09/15/16 09/15/16 09/15/16 07:59 15:59 23:59 Intake Total 250 / 250 1798 / 1798 Balance 250 / 250 1798 / 1798 Weight 62 kg - VTE Documentation of Mechanical Device: Graduated compression elastic hosiery Consult Discharge Plan - Plan Referrals: Wei Garza MD [Primary Care Provider] - 09/22/16 2:45 pm
[2016-09-15] MEDS: Doxycycline 100 MG in 0.9 % Sodium Chloride Mini Bag 100 ML IVPB SCH (17:21)
[2016-09-16] MEDS: traZODone 50 MG TABLET PO SCH (00:26)
[2016-09-16] MEDS: *HR* HYDROmorphone (PF) 1 MG/ML SYRINGE IVP PRN ×3 (01:37→23:00)
[2016-09-16] MEDS: Piperacillin/Tazobactam 3.375 GM in D5% in Water (Mini-Bag+) 100 ML IVPB SCH ×3 (03:12→20:34)
[2016-09-16 05:06] LABS: Basophils # 0.1 K/mcL (0.0-0.2); Basophils % 0.7 %; Eosinophils # 0.4 K/mcL (0.0-0.6); Eosinophils % 4.3 %; Immature Granulocytes % 2.2 % (0-4); Lymphocytes # 2.3 K/mcL (0.6-4.6); Lymphocytes % 23.4 %; Mean Corpuscular HGB Conc 31.6 g/dL (31.6-35.5); Mean Corpuscular Hemoglobin 31.4 pg (28.0-33.3); Mean Corpuscular Volume 99.5 fL (83.0-100.0); Mean Platelet Volume 8.9 fL (9.4-12.4); Monocytes # 0.8 K/mcL (0.0-1.3); Neutrophils # 5.9 K/mcL (1.6-8.9); Platelet Count 337 K/mcL (140-400); Red Blood Count 3.82 M/mcL (3.82-4.97); Red Cell Distribution Width 12.8 % (11.5-14.5); Segmented Neutrophils % 61.4 %
[2016-09-16 05:24] LABS: BUN/Creatinine Ratio 10 (6-26); Blood Urea Nitrogen 6 mg/dL (7-20); Calcium 9.4 mg/dL (8.6-10.8); Carbon Dioxide 29 mEq/L (19-29); Chloride 102 mEq/L (98-109); Glucose 96 mg/dL (70-99); Osmolality,Calculated 291 (280-300); Potassium 4.2 mEq/L (3.5-4.5); Sodium 142 mEq/L (136-145); eGFR For African Americans > 60 (> 60); eGFR For Non-African Americans > 60 (> 60)
[2016-09-16] MEDS: *HR* Enoxaparin 40 MG/0.4 ML SYRINGE SQ SCH (05:34)
[2016-09-16] MEDS: Gabapentin 400 MG CAPSULE PO SCH ×3 (07:32→20:34)
[2016-09-16] MEDS: Lactobacillus 1 EACH CAP.SPRINK PO SCH (07:32)
[2016-09-16] MEDS: Doxycycline 100 MG in 0.9 % Sodium Chloride Mini Bag 100 ML IVPB SCH ×2 (07:33→17:43)
[2016-09-16] MEDS: *HR* OxyCODONE/APAP 10/325 TABLET PO PRN ×3 (07:34→20:34)
[2016-09-16] MEDS ORDERED: 0.9 % Sodium Chloride 1,000 ML IVC ONE (08:06)
--- NOTE | 2016-09-16 08:22 | Pulmonology Progress Note ---
Date of Encounter: 09/16/16 Time of Encounter: 08:26 Assessment and Plan (1) Sepsis Current Visit: Yes Status: Acute Qualifiers: Sepsis type: sepsis due to unspecified organism Qualified Code(s): A41.9 - Sepsis, unspecified organism (2) Community acquired pneumonia Current Visit: Yes Status: Acute (3) Transaminitis Current Visit: Yes Status: Resolved (4) DVT prophylaxis Current Visit: Yes Status: Acute Subjective Principal diagnosis: Pneumonia Interval history: 36 year old female evaluated at bedside. patient denies nausea, vomiting, diarrhea, fever, chills. she states shes been coughing up a lot more mucous lately. she denies any further problems today. Objective PUL Vital signs: Last Vital Signs Temp 98.8 F 09/16/16 07:30 Pulse 108 09/16/16 07:30 Resp 16 09/16/16 07:30 BP 84/60 09/16/16 07:30 Pulse Ox 95 09/16/16 07:30 Results - Laboratory Findings CBC and BMP: 09/16/16 04:36 09/16/16 04:36 PT/INR, D-dimer D-Dimer 743 ng/mLFEU (0-500) H 09/10/16 15:25 Abnormal lab findings: Abnormal lab results MPV 8.9 fL (9.4-12.4) L 09/16/16 04:36 D-Dimer 743 ng/mLFEU (0-500) H 09/10/16 15:25 BUN 6 mg/dL (7-20) L 09/16/16 04:36 Magnesium 1.5 mg/dL (1.6-2.6) L 09/15/16 05:29 Direct Bilirubin 0.6 mg/dL (0.0-0.5) H 09/11/16 09:12 Alkaline Phosphatase 175 Units/L (38-126) H 09/13/16 06:12 Lactate Dehydrogenase 90 Units/L (159-327) L 09/13/16 06:12 Serum Total Protein 4.9 g/dL (6.0-8.3) L 09/13/16 06:12 Albumin 1.9 g/dL (3.5-5.0) L 09/13/16 06:12 Albumin/Globulin Ratio 0.6 (1.1-2.2) L 09/13/16 06:12 TSH 4.973 mcIU/mL (0.350-4.840) H 09/10/16 15:25 Ur Specimen Adequacy See below A 09/10/16 15:43 Urine Clarity Hazy (Clear) A 09/10/16 15:43 Ur Specific Manquin > 1.030 (1.010-1.025) H 09/10/16 15:43 Urine Bilirubin Small (Negative) H 09/10/16 15:43 Urine Urobilinogen 2.0 mg/dL (Normal) H 09/10/16 15:43 Ur Leukocyte Esterase Moderate (Negative) H 09/10/16 15:43 Urine Microscopic RBC 5-15 per hpf (0-3) H 09/10/16 15:43 Urine Microscopic WBC 50-100 per hpf (0-3) H 09/10/16 15:43 Ur Squamous Epith Cells Many per lpf (None-Few) H 09/10/16 15:43 Ur Culture Indicated? YES (NO) A 09/10/16 15:43 Pleural RBC 0.003 M/mcL (0.000-0.002) H 09/12/16 12:56 Pleural Tot Nuc Cell 1925 TNC/mcL (0-1000) H 09/12/16 12:56 - Microbiology Findings Microbiology Findings: Microbiology, Last 48 Hours 09/12/16 13:00 Gram Stain - Final Pleural Fluid Body Fluid Culture - Final - Clinical Findings Intake & Output: Intake & Output 09/15/16 09/16/16 09/16/16 23:59 07:59 15:59 Intake Total 200 / 200 Balance 200 / 200 Weight 62.3 kg - VTE Documentation of Mechanical Device: Graduated compression elastic hosiery Consult Discharge Plan - Plan Referrals: Wei Garza MD [Primary Care Provider] - 09/22/16 2:45 pm
--- NOTE | 2016-09-16 08:33 | Internal Med Progress Note ---
<Julee Pimentel - Last Filed: 09/16/16 13:34> Date of Encounter: 09/16/16 Time of Encounter: 08:31 - Assessment and plan (1) Sepsis Current Visit: Yes Status: Acute Assessment and plan: patient failed outpatient treatment with azithromycin. on admission, patient had fever, tachycardia, respiratory rate 20, lactate 2.7 etiology likely secondary to community acquired pneumonia- concern for empyema formation due to symptoms. chest CT showed left lower lobe and lingular pneumonia with partially loculated left parapneumonic pleural effusion. patient received aggressive fluid hydration. final blood culture: no growth. legionella and s.pneumo antigen negative. prelim sputum cultures showed no growth. urine culture growing MSSA patient on vanc, zosyn, doxycycline patient remains tachycardic repeat CT chest showed persistent partially loculated hydropneumothorax with bubbles of gas within fluid collection, new trace right pleural efffusion, airspace consolidation in both lower lobes. CT pelvis showed no acute process. final pleural fluid culture pending. gram stain showed no bacteria observed. Plan: vanc, zosyn, doxycycline per ID recs. Levaquin as discontinued. incentive spirometry appreciate CT surgery and pulmonology recommendations. continue to follow clinically. Echocardiogram pending. Qualifiers: Sepsis type: sepsis due to unspecified organism Qualified Code(s): A41.9 - Sepsis, unspecified organism (2) Community acquired pneumonia Current Visit: Yes Status: Acute Assessment and plan: plan as above. Qualifiers: Laterality: left Lung location: lower lobe of lung Qualified Code(s): J18.1 - Lobar pneumonia, unspecified organism (3) Transaminitis Current Visit: Yes Status: Resolved Assessment and plan: etiology likely related to septic shock. improved. (4) DVT prophylaxis Current Visit: Yes Status: Acute Assessment and plan: Lovenox - Subjective Interval history: 36 year old female evaluated at bedside. patient denies nausea, vomiting, diarrhea, fever, chills. she states she is coughing up more mucous than usual. she denies any other problems today. she denies hemoptysis - Constitutional Vitals: Temp Pulse Resp BP Pulse Ox 98.8 F 108 16 84/60 95 09/16/16 07:30 09/16/16 07:30 09/16/16 07:30 09/16/16 07:30 09/16/16 07:30 General appearance: Present: A&O X 3, pleasant, no acute distress, answers questions appropriately - Head Head exam: Present: atraumatic, normocephalic - Neck Neck exam general surgery: Present: supple, trachea midline - Respiratory Additional comments: diffuse rales noted, more on left than right. - Cardiovascular Cardiovascular exam: Present: tachycardia - GI/Abdominal GI/Abdominal exam: Present: normal bowel sounds, soft. Absent: distended, tenderness - Extremities Exam Extremities exam: Absent: cyanotic, pedal edema - Neurological Exam Neurological exam: Present: alert, oriented X3, no focal deficits - Psychiatric Psychiatric exam: Present: anxious - Skin Skin exam: Present: intact Internal Medicine: Result - Labs CBC & Chem 7: 09/16/16 04:36 09/16/16 04:36 Labs: Short CBC 09/16/16 Range/Units 04:36 WBC 9.7 (4.3-11.1) K/mcL Hgb 12.0 D (11.5-15.4) g/dL Hct 38.0 (35.3-44.9) % Plt Count 337 (140-400) K/mcL Neutrophils # 5.9 (1.6-8.9) K/mcL BMP 09/16/16 04:36 Sodium 142 Potassium 4.2 Chloride 102 Carbon Dioxide 29 BUN 6 L Creatinine 0.62 Glucose 96 Calcium 9.4 - ABG Interpretation ABG results: PT/INR, D-dimer D-Dimer 743 ng/mLFEU (0-500) H 09/10/16 15:25 - VTE Documentation of Mechanical Device: Graduated compression elastic hosiery Consult Discharge Plan - Plan Referrals: Wei Garza MD [Primary Care Provider] - 09/22/16 2:45 pm <Chuck Aviles - Last Filed: 09/16/16 19:05> Date of Encounter: 09/16/16 - Assessment and plan (1) Acute respiratory failure Current Visit: Yes Status: Acute Qualifiers: Respiratory failure complication: hypoxia Qualified Code(s): J96.01 - Acute respiratory failure with hypoxia (2) Severe sepsis Current Visit: Yes Status: Acute (3) Community acquired pneumonia Current Visit: Yes Status: Acute Qualifiers: Laterality: left Lung location: lower lobe of lung Qualified Code(s): J18.1 - Lobar pneumonia, unspecified organism (4) Parapneumonic effusion Current Visit: Yes Status: Acute (5) Transaminitis Current Visit: Yes Status: Resolved - Constitutional Vitals: Temp Pulse Resp BP Pulse Ox 98.3 F 106 16 95/67 94 09/16/16 15:50 09/16/16 15:50 09/16/16 15:50 09/16/16 15:50 09/16/16 15:50 Internal Medicine: Result - Labs CBC & Chem 7: 09/16/16 04:36 09/16/16 04:36 Labs: Short CBC 09/16/16 Range/Units 04:36 WBC 9.7 (4.3-11.1) K/mcL Hgb 12.0 D (11.5-15.4) g/dL Hct 38.0 (35.3-44.9) % Plt Count 337 (140-400) K/mcL Neutrophils # 5.9 (1.6-8.9) K/mcL BMP 09/16/16 04:36 Sodium 142 Potassium 4.2 Chloride 102 Carbon Dioxide 29 BUN 6 L Creatinine 0.62 Glucose 96 Calcium 9.4 - ABG Interpretation ABG results: PT/INR, D-dimer D-Dimer 743 ng/mLFEU (0-500) H 09/10/16 15:25 - Impressions Impressions Echocardiogram 09/15/16 13:51 Impressions: Sinus tachycardia. LVEF 65%. Normal left ventricular size and systolic function. Indeterminate left ventricular diastolic function. Normal right ventricular size and function. No significant valvular dysfunction. No pulmonary hypertension. Left Ventricular Wall Motion: Rest Echo Findings All wall segments showed normal motion. Findings: Study Quality * Technically adequate exam. ECG Findings * Sinus tachycardia. Left Ventricle * LVEF 65%. * Indeterminate diastolic function. * Normal LV chamber size, wall thickness and function. Aorta * Normally sized aortic root. Aortic Valve * No aortic regurgitation. * Trileaflet aortic valve. * Normal aortic valve structure. * No aortic stenosis. Mitral Valve * No mitral regurgitation. * Normal mitral valve structure. * No mitral stenosis. Tricuspid Valve * Tricuspid valve not well visualized. * Trace tricuspid regurgitation. * Estimated RA pressure is 3 mmHg. * Estimated RVSP is 24 mmHg. * No pulmonary hypertension. Pulmonic Valve * Pulmonic valve is not well visualized. * No pulmonic stenosis. * No pulmonic regurgitation. Pulmonary Artery * Pulmonary artery not well visualized. Right Ventricle * Normal right ventricular structure and function. Left Atrium * Normal left atrial size. Right Atrium * Normal right atrial size. Pericardium * There is no pericardial effusion present. Interatrial Septum * No evidence of PFO by color Doppler. IVC * Normal IVC dimensions and inspiratory collapse. - Attending Attestation I examined this patient and my medical decision-making was reviewed with the Resident Physician on 09/16/16. I agree with the documented findings, disposition and treatment plan as described except to the extent set forth below. Ms. Lomeli is currently admitted for sepsis related to pneumonia. She remains moderate to high risk due to potential for worsening respiratory and infectious status. Ms. Lomeli is feeling a little better. Still having pain associated with chest tube and effusion. Some cough with sputum. No fever or chills. No GI issues. No joint pain. Exam Alert. Comfortable Mucus membranes moist Heart reg Lungs diminished but no wheeze Abd soft No edema I/P 1. Sepsis - resolved 2. Pneumonia 3. Parapneumonic effusion Further diagnoses and plan as above.
--- NOTE | 2016-09-16 10:21 | Infectious Disease Progress No ---
Date of Encounter: 09/16/16 Time of Encounter: 10:19 - Assessment and Plan (1) Severe sepsis Current Visit: Yes Status: Acute The patient had two SIRS criteria plus lactic acidosis and elevated liver enzymes. Likely secondary to pneumonia and loculated pleural effusion. Improved. The patient has been afebrile >24 hours. She continues to have tachycardia, but appears less frequent. Lactic acidosis has resolved. Elevated liver enzymes are improved. Blood cultures drawn 09/10/16 are NGTD x 2 sets. (2) Community acquired pneumonia Current Visit: Yes Status: Acute Location: Left lower lobe. Failed outpatient therapy. Causative organism unclear. Sputum culture interpreted as NURTF. S. pneumo and Legionella UAT are negative. Given that the patient does not have any underlying comorbid conditions that would explain why the patient failed outpatient oral antibiotic therapy in combination with elevated LFTs, concern for possible tickborne illness. The patient denies any known tick bites and has not been outside for any prolonged period of time. CT chest showed LLL and left lingular pneumonia and moderate, partially loculated left parapneumonic pleural effusion. Continue doxycycline 100mg IV BID. Continue Zosyn 3.375 grams IV Q8H. Duration of treatment depends on the clinical picture, but may be able to switch to orals when ready for discharge if the patient continues to improve. We will continue to follow. Qualifiers: Laterality: left Lung location: lower lobe of lung Qualified Code(s): J18.1 - Lobar pneumonia, unspecified organism (3) Pleural effusion, left Current Visit: Yes Status: Acute Likely parapneumonic secondary to LLL pneumonia. Status post CT-guided drain placement. 20ml straw-colored fluid drained. Appears exudative, but culture is negative. Repeat CT scan shows redemonstration of partially loculated left hydropneumothorax. CTS has been consulted. Discussed case with Dr. Zaidi. Given that the patient continues to improve, no surgical intervention required at this time, but if patient declines, may need to consider thoracotomy with decortication. Continue antibiotics as above. Duration depends on the clinical picture. Continue serial chest imaging to evaluate for improvement. (4) Lactic acidosis Current Visit: Yes Status: Acute Likely secondary to sepsis. Resolved. (5) Transaminitis Current Visit: Yes Status: Resolved Etiology unclear: sepsis vs. tickborne illness vs. other. Improved. Abdominal exam benign. Continue to trend. Recheck in the morning. (6) Anxiety Current Visit: Yes Status: Chronic - Subjective Interval history: Patient seen and examined. No acute events noted overnight. Patient states that she continues to get better every day. She does report dyspnea on exertion and a cough productive of clear sputum. She continues to report some left-sided chest and back pain. She denies any nausea, vomiting, diarrhea, or constipation. She states her appetite is normal. She denies any abdominal pain. She denies any urinary complaints. She denies any arthralgias, rashes, or oral thrush. Infect Dis PN-Objective Data - Labs CBC & Chem 7: 09/16/16 04:36 09/16/16 04:36 Labs: Laboratory Results - last 24 hr 09/16/16 09/16/16 09/16/16 04:36 04:36 04:36 WBC 9.7 RBC 3.82 Hgb 12.0 D Hct 38.0 MCV 99.5 MCH 31.4 MCHC 31.6 RDW 12.8 Plt Count 337 MPV 8.9 L Immature Gran % 2.2 Seg Neutrophils % 61.4 Lymphocytes % 23.4 Monocytes % 8.0 Eosinophils % 4.3 Basophils % 0.7 Neutrophils # 5.9 Lymphocytes # 2.3 Monocytes # 0.8 Eosinophils # 0.4 Basophils # 0.1 Sodium 142 Potassium 4.2 Chloride 102 Carbon Dioxide 29 BUN 6 L Creatinine 0.62 Est GFR ( Amer) > 60 Est GFR (Non-Af Amer) > 60 BUN/Creatinine Ratio 10 Glucose 96 Calculated Osmolality 291 Calcium 9.4 Random Cortisol 7.8 Cultures: Cultures 09/12/16 13:00 Gram Stain - Final Pleural Fluid Body Fluid Culture - Final 09/10/16 23:30 Sputum Culture - Final Sputum Serology 09/12/16 Range/Units 12:56 Pleural Fluid Volume 20.0 mL Pleural Appearance Clear (Clear) Pleural pH 7.50 (No Ref Range) pH Units Pleural RBC 0.003 H (0.000 - 0.002) M/mcL Pleural Tot Nuc Cell 1925 H (0-1000) TNC/mcL Pleural Neutrophils 90.0 % Pleural Band Neuts 3.0 % Pleural Eosinophils Test Not Performed Pleural Basophils Test Not Performed Pleural Lymphocytes % 6.0 % Pleural Monocytes % Test Not Performed Pleural Other Cells % 1.0 % Pleural Total Protein 2.9 (No Ref Range) g/dL Pleural LDH 802 (No Ref Range) Units/L Pleural Glucose 57 (No Ref Range) mg/dL - Impressions Impressions Echocardiogram 09/15/16 13:51 Impressions: Sinus tachycardia. LVEF 65%. Normal left ventricular size and systolic function. Indeterminate left ventricular diastolic function. Normal right ventricular size and function. No significant valvular dysfunction. No pulmonary hypertension. Left Ventricular Wall Motion: Rest Echo Findings All wall segments showed normal motion. Findings: Study Quality * Technically adequate exam. ECG Findings * Sinus tachycardia. Left Ventricle * LVEF 65%. * Indeterminate diastolic function. * Normal LV chamber size, wall thickness and function. Aorta * Normally sized aortic root. Aortic Valve * No aortic regurgitation. * Trileaflet aortic valve. * Normal aortic valve structure. * No aortic stenosis. Mitral Valve * No mitral regurgitation. * Normal mitral valve structure. * No mitral stenosis. Tricuspid Valve * Tricuspid valve not well visualized. * Trace tricuspid regurgitation. * Estimated RA pressure is 3 mmHg. * Estimated RVSP is 24 mmHg. * No pulmonary hypertension. Pulmonic Valve * Pulmonic valve is not well visualized. * No pulmonic stenosis. * No pulmonic regurgitation. Pulmonary Artery * Pulmonary artery not well visualized. Right Ventricle * Normal right ventricular structure and function. Left Atrium * Normal left atrial size. Right Atrium * Normal right atrial size. Pericardium * There is no pericardial effusion present. Interatrial Septum * No evidence of PFO by color Doppler. IVC * Normal IVC dimensions and inspiratory collapse. Exam - Constitutional Vitals: Temp Pulse Resp BP Pulse Ox 98.0 F 122 16 91/60 96 09/16/16 10:10 09/16/16 10:10 09/16/16 10:10 09/16/16 10:10 09/16/16 10:10 General appearance: average body habitus, cooperative, no acute distress - Head Head exam: Present: atraumatic, normal inspection, normocephalic - Eye Eye exam: Present: EOMI, normal appearance, PERRL Pupils: Present: normal accommodation - ENT ENT exam: Present: mucous membranes moist - Neck Neck exam: Present: normal inspection - Respiratory Respiratory exam: Present: rales (Left base). Absent: respiratory distress, rhonchi, wheezes - Cardiovascular Cardiovascular exam: Present: +S1, +S2, tachycardia. Absent: irregular rhythm - GI/Abdominal GI/Abdominal exam: Present: normal bowel sounds, soft. Absent: distended, tenderness - Extremities Exam Extremities exam: Present: normal inspection. Absent: joint swelling, pedal edema, tenderness - Back Exam Back exam: Present: normal inspection Additional comments: Dressing to the left upper back is clean, dry, and intact. - Neurological Exam Neurological exam: Present: alert, oriented X3, no focal deficits - Psychiatric Psychiatric exam: Present: normal affect, normal mood - Skin Skin exam: Present: dry, intact, normal color, warm - VTE Documentation of Mechanical Device: Graduated compression elastic hosiery Consult Discharge Plan - Plan Referrals: Wei Garza MD [Primary Care Provider] - 09/22/16 2:45 pm - Attending Attestation I examined this patient and my medical decision-making was reviewed with the Resident Physician. I agree with the documented findings, disposition and treatment plan as described except to the extent set forth below.
[2016-09-16] MEDS: *HR* LORazepam 0.5 MG TABLET PO PRN ×2 (10:31→17:43)
[2016-09-16] MEDS: 0.9 % Sodium Chloride 1,000 ML IVC SCH ×2 (12:03→17:43)
[2016-09-16] MEDS: Ibuprofen 600 MG TABLET PO PRN (17:43)
[2016-09-17] MEDS: *HR* LORazepam 0.5 MG TABLET PO PRN ×2 (00:36→09:30)
[2016-09-17] MEDS: 0.9 % Sodium Chloride 1,000 ML IVC SCH ×3 (00:36→17:12)
[2016-09-17] MEDS: traZODone 50 MG TABLET PO SCH (00:36)
[2016-09-17] MEDS: Piperacillin/Tazobactam 3.375 GM in D5% in Water (Mini-Bag+) 100 ML IVPB SCH ×3 (03:10→18:53)
[2016-09-17] MEDS: Doxycycline 100 MG in 0.9 % Sodium Chloride Mini Bag 100 ML IVPB SCH ×2 (06:02→17:06)
[2016-09-17] MEDS: *HR* OxyCODONE/APAP 10/325 TABLET PO PRN ×3 (06:02→18:53)
[2016-09-17 06:03] LABS: BUN/Creatinine Ratio 15 (6-26); Blood Urea Nitrogen 8 mg/dL (7-20); Calcium 8.7 mg/dL (8.6-10.8); Carbon Dioxide 21 mEq/L (19-29); Chloride 110 mEq/L (98-109); Glucose 105 mg/dL (70-99); Osmolality,Calculated 291 (280-300); Sodium 141 mEq/L (136-145); eGFR For African Americans > 60 (> 60); eGFR For Non-African Americans > 60 (> 60)
[2016-09-17] MEDS: *HR* Enoxaparin 40 MG/0.4 ML SYRINGE SQ SCH (06:03)
[2016-09-17 06:16] LABS: Potassium 4.5 mEq/L (3.5-4.5)
[2016-09-17 06:21] LABS: Basophils % 0.5 %; Eosinophils # 0.4 K/mcL (0.0-0.6); Eosinophils % 4.7 %; Hematocrit 37.1 % (35.3-44.9); Hemoglobin 12.2 g/dL (11.5-15.4); Immature Granulocytes % 2.2 % (0-4); Lymphocytes # 2.1 K/mcL (0.6-4.6); Lymphocytes % 26.7 %; Mean Corpuscular HGB Conc 32.9 g/dL (31.6-35.5); Mean Corpuscular Hemoglobin 31.7 pg (28.0-33.3); Mean Corpuscular Volume 96.4 fL (83.0-100.0); Mean Platelet Volume 10.2 fL (9.4-12.4); Monocytes # 0.7 K/mcL (0.0-1.3); Monocytes % 8.1 %; Neutrophils # 4.6 K/mcL (1.6-8.9); Platelet Count 258 K/mcL (140-400); Red Blood Count 3.85 M/mcL (3.82-4.97); Red Cell Distribution Width 12.6 % (11.5-14.5); Segmented Neutrophils % 57.8 %
--- NOTE | 2016-09-17 08:46 | Internal Med Progress Note ---
<Pk So - Last Filed: 09/17/16 10:18> Date of Encounter: 09/17/16 Time of Encounter: 08:45 - Assessment and plan (1) Severe sepsis Current Visit: Yes Status: Acute Assessment and plan: Patient remains borderline hypotensive while on maintenance fluids, but tachycardia improved Will continue with antibiotics per ID recommendations: Doxy day 3 and Zosyn day 8 Blood cultures remain negative, and urine shows bush-sensitive Staph aureus (2) Community acquired pneumonia Current Visit: Yes Status: Acute Assessment and plan: Management with antibiotic regimen as above for sepsis Qualifiers: Laterality: left Lung location: lower lobe of lung Qualified Code(s): J18.1 - Lobar pneumonia, unspecified organism (3) Pleural effusion, left Current Visit: Yes Status: Acute Assessment and plan: Likely from parapneumonic effusion which was drained and showed exudative fluid s/p chest tube placement; CT surgery and pulmonology have been consulted If no improvement in clinical status, may consider repeat imaging (4) Transaminitis Current Visit: Yes Status: Resolved Assessment and plan: Likely secondary to shock liver due to severe sepsis Patient does not believe she had any tick bites that may have caused this transient rise (5) Anxiety Current Visit: Yes Status: Chronic Assessment and plan: May have been contributing to her tachycardia Continue Ativan as needed (6) DVT prophylaxis Current Visit: Yes Status: Acute Assessment and plan: Lovenox SQ - Subjective Interval history: Pt seen and examined. She states she is feeling slightly better this morning in terms of her pain in her left chest region where the tube was placed. She reports her breathing has improved since yesterday and has not had any nausea, vomiting, diarrhea, fevers. - Constitutional Vitals: Temp Pulse Resp BP Pulse Ox 98.3 F 102 16 94/66 92 09/17/16 06:49 09/17/16 06:49 09/17/16 06:49 09/17/16 06:49 09/17/16 06:49 General appearance: Present: A&O X 3, pleasant, no acute distress, answers questions appropriately - Head Head exam: Present: atraumatic, normocephalic - Eye Eye exam: Present: PERRL, conjuntiva pink, sclera anicteric - Neck Neck exam general surgery: Present: supple, trachea midline. Absent: lymphadenopathy - Respiratory Respiratory exam: Present: decreased breath sounds (on left). Absent: accessory muscle use, rales, rhonchi, wheezes - Cardiovascular Cardiovascular exam: Present: +S1, +S2, tachycardia. Absent: diastolic murmur, gallop, rubs, systolic murmur - GI/Abdominal GI/Abdominal exam: Present: normal bowel sounds, soft, no peritoneal signs. Absent: distended, tenderness - Extremities Exam Extremities exam: Present: warm, radial pulses palpable and symetrical. Absent : calf tenderness, cyanotic, pedal edema - Neurological Exam Neurological exam: Present: alert, no focal deficits. Absent: facial droop, speech deficit - Skin Skin exam: Present: dry, intact Internal Medicine: Result - Labs CBC & Chem 7: 09/17/16 05:43 09/17/16 05:43 Labs: Short CBC 09/17/16 Range/Units 05:43 WBC 8.0 (4.3-11.1) K/mcL Hgb 12.2 (11.5-15.4) g/dL Hct 37.1 (35.3-44.9) % Plt Count 258 (140-400) K/mcL Neutrophils # 4.6 (1.6-8.9) K/mcL BMP 09/17/16 05:43 Sodium 141 Potassium 4.5 Chloride 110 H Carbon Dioxide 21 BUN 8 Creatinine 0.53 L Glucose 105 H Calcium 8.7 - ABG Interpretation ABG results: PT/INR, D-dimer D-Dimer 743 ng/mLFEU (0-500) H 09/10/16 15:25 - Impressions Impressions Echocardiogram 09/15/16 13:51 Impressions: Sinus tachycardia. LVEF 65%. Normal left ventricular size and systolic function. Indeterminate left ventricular diastolic function. Normal right ventricular size and function. No significant valvular dysfunction. No pulmonary hypertension. Left Ventricular Wall Motion: Rest Echo Findings All wall segments showed normal motion. Findings: Study Quality * Technically adequate exam. ECG Findings * Sinus tachycardia. Left Ventricle * LVEF 65%. * Indeterminate diastolic function. * Normal LV chamber size, wall thickness and function. Aorta * Normally sized aortic root. Aortic Valve * No aortic regurgitation. * Trileaflet aortic valve. * Normal aortic valve structure. * No aortic stenosis. Mitral Valve * No mitral regurgitation. * Normal mitral valve structure. * No mitral stenosis. Tricuspid Valve * Tricuspid valve not well visualized. * Trace tricuspid regurgitation. * Estimated RA pressure is 3 mmHg. * Estimated RVSP is 24 mmHg. * No pulmonary hypertension. Pulmonic Valve * Pulmonic valve is not well visualized. * No pulmonic stenosis. * No pulmonic regurgitation. Pulmonary Artery * Pulmonary artery not well visualized. Right Ventricle * Normal right ventricular structure and function. Left Atrium * Normal left atrial size. Right Atrium * Normal right atrial size. Pericardium * There is no pericardial effusion present. Interatrial Septum * No evidence of PFO by color Doppler. IVC * Normal IVC dimensions and inspiratory collapse. - VTE Documentation of Mechanical Device: Graduated compression elastic hosiery Consult Discharge Plan - Plan Referrals: Wei Garza MD [Primary Care Provider] - 09/22/16 2:45 pm <Chuck Aviles - Last Filed: 09/17/16 18:07> Date of Encounter: 09/17/16 - Assessment and plan (1) Acute respiratory failure Current Visit: Yes Status: Acute Qualifiers: Respiratory failure complication: hypoxia Qualified Code(s): J96.01 - Acute respiratory failure with hypoxia (2) Severe sepsis Current Visit: Yes Status: Acute (3) Community acquired pneumonia Current Visit: Yes Status: Acute Qualifiers: Laterality: left Lung location: lower lobe of lung Qualified Code(s): J18.1 - Lobar pneumonia, unspecified organism (4) Parapneumonic effusion Current Visit: Yes Status: Acute (5) Transaminitis Current Visit: Yes Status: Resolved - Constitutional Vitals: Temp Pulse Resp BP Pulse Ox 98.2 F 100 16 102/69 96 09/17/16 16:10 09/17/16 16:10 09/17/16 16:10 09/17/16 16:10 09/17/16 16:10 Internal Medicine: Result - Labs CBC & Chem 7: 09/17/16 05:43 09/17/16 05:43 Labs: Short CBC 09/17/16 Range/Units 05:43 WBC 8.0 (4.3-11.1) K/mcL Hgb 12.2 (11.5-15.4) g/dL Hct 37.1 (35.3-44.9) % Plt Count 258 (140-400) K/mcL Neutrophils # 4.6 (1.6-8.9) K/mcL BMP 09/17/16 05:43 Sodium 141 Potassium 4.5 Chloride 110 H Carbon Dioxide 21 BUN 8 Creatinine 0.53 L Glucose 105 H Calcium 8.7 - ABG Interpretation ABG results: PT/INR, D-dimer D-Dimer 743 ng/mLFEU (0-500) H 09/10/16 15:25 - Attending Attestation I examined this patient and my medical decision-making was reviewed with the Resident Physician on 09/17/16. I agree with the documented findings, disposition and treatment plan as described except to the extent set forth below. Ms. Lomeli is currently admitted for severe sepsis related to pneumonia and parapneumonic effusion. She remains moderate to high risk due to potential for worsening respiratory status. Ms. Lomeli is feeling somewhat better today. No fever or chills. No GI symptoms. Cough with clear sputum. Pain is tolerable. Exam Alert. comfortable Mucus membranes dry Heart reg Lungs diminished Abd soft No edema I/P 1. Severe sepsis 2. Pneumonia 3. Parapneumonic effusion Further diagnoses and plan as above.
[2016-09-17] MEDS: Gabapentin 400 MG CAPSULE PO SCH ×3 (09:26→20:11)
[2016-09-17] MEDS: Lactobacillus 1 EACH CAP.SPRINK PO SCH (09:26)
[2016-09-17] MEDS: Ibuprofen 600 MG TABLET PO PRN ×2 (09:30→20:11)
[2016-09-17] MEDS: *HR* HYDROmorphone (PF) 1 MG/ML SYRINGE IVP PRN ×2 (10:54→23:00)
[2016-09-18] MEDS: *HR* LORazepam 0.5 MG TABLET PO PRN (00:50)
[2016-09-18] MEDS: traZODone 50 MG TABLET PO SCH (00:50)
[2016-09-18] MEDS: 0.9 % Sodium Chloride 1,000 ML IVC SCH (01:20)
[2016-09-18] MEDS: Piperacillin/Tazobactam 3.375 GM in D5% in Water (Mini-Bag+) 100 ML IVPB SCH ×3 (03:35→18:23)
[2016-09-18] MEDS: *HR* Enoxaparin 40 MG/0.4 ML SYRINGE SQ SCH (06:28)
[2016-09-18] MEDS: Doxycycline 100 MG in 0.9 % Sodium Chloride Mini Bag 100 ML IVPB SCH ×2 (06:29→17:08)
[2016-09-18] MEDS: *HR* OxyCODONE/APAP 10/325 TABLET PO PRN ×3 (06:29→18:20)
[2016-09-18 07:02] LABS: BUN/Creatinine Ratio 15 (6-26); Blood Urea Nitrogen 8 mg/dL (7-20); Calcium 8.4 mg/dL (8.6-10.8); Carbon Dioxide 24 mEq/L (19-29); Chloride 109 mEq/L (98-109); Glucose 93 mg/dL (70-99); Osmolality,Calculated 294 (280-300); Sodium 143 mEq/L (136-145); eGFR For African Americans > 60 (> 60); eGFR For Non-African Americans > 60 (> 60)
[2016-09-18 07:14] LABS: Basophils # 0.1 K/mcL (0.0-0.2); Basophils % 0.9 %; Eosinophils # 0.3 K/mcL (0.0-0.6); Eosinophils % 4.4 %; Hematocrit 38.5 % (35.3-44.9); Hemoglobin 11.9 g/dL (11.5-15.4); Immature Granulocytes % 2.5 % (0-4); Lymphocytes % 31.5 %; Mean Corpuscular HGB Conc 30.9 g/dL (31.6-35.5); Mean Corpuscular Hemoglobin 31.2 pg (28.0-33.3); Mean Corpuscular Volume 100.8 fL (83.0-100.0); Mean Platelet Volume 10.6 fL (9.4-12.4); Monocytes # 0.5 K/mcL (0.0-1.3); Monocytes % 7.6 %; Neutrophils # 3.4 K/mcL (1.6-8.9); Platelet Count 219 K/mcL (140-400); Red Blood Count 3.82 M/mcL (3.82-4.97); Red Cell Distribution Width 12.6 % (11.5-14.5); Segmented Neutrophils % 53.1 %
[2016-09-18 08:12] LABS: Platelet Estimate Normal (Normal)
--- NOTE | 2016-09-18 08:23 | Pulmonology Progress Note ---
Date of Encounter: 09/18/16 Time of Encounter: 08:00 Assessment and Plan (1) Community acquired pneumonia Current Visit: Yes Status: Acute Clinically patient is improving and she feels better with current treatment and she is able to take deeper breath with incentive spirometry. Explained to patient as well as primary team that she will need to follow-up as outpatient to have a follow-up CT chest in about 6-8 weeks and then I gave her the option to follow up with either our clinic or her primary care. Qualifiers: Laterality: left Lung location: lower lobe of lung Qualified Code(s): J18.1 - Lobar pneumonia, unspecified organism (2) Pleural effusion, left Current Visit: Yes Status: Acute Clinically patient feels better and needs follow-up images. Subjective Principal diagnosis: Pneumonia Interval history: Patient feels better and able to take deeper breath with incentive spirometry. Objective PUL Vital signs: Last Vital Signs Temp 97.9 F 09/18/16 03:54 Pulse 94 09/18/16 03:54 Resp 16 09/18/16 03:54 BP 97/68 09/18/16 03:54 Pulse Ox 98 09/18/16 03:54 General appearance: no acute distress Eyes: nonicteric Neck: supple Effort: normal Auscultation: left: diminished breath sounds, right: clear Percussion: left: dull, right: not dull Cardiovascular: regular rate and rhythm Gastrointestinal: normoactive bowel sounds Extremities: no cyanosis normal mental status, non-focal exam mood appropriate Results - Laboratory Findings CBC and BMP: 09/18/16 06:19 09/18/16 06:19 PT/INR, D-dimer D-Dimer 743 ng/mLFEU (0-500) H 09/10/16 15:25 Abnormal lab findings: Abnormal lab results MCV 100.8 fL (83.0-100.0) H 09/18/16 06:19 MCHC 30.9 g/dL (31.6-35.5) L 09/18/16 06:19 D-Dimer 743 ng/mLFEU (0-500) H 09/10/16 15:25 Creatinine 0.52 mg/dL (0.57-1.11) L 09/18/16 06:19 Calcium 8.4 mg/dL (8.6-10.8) L 09/18/16 06:19 Magnesium 1.5 mg/dL (1.6-2.6) L 09/15/16 05:29 Direct Bilirubin 0.6 mg/dL (0.0-0.5) H 09/11/16 09:12 Alkaline Phosphatase 175 Units/L (38-126) H 09/13/16 06:12 Lactate Dehydrogenase 90 Units/L (159-327) L 09/13/16 06:12 Serum Total Protein 4.9 g/dL (6.0-8.3) L 09/13/16 06:12 Albumin 1.9 g/dL (3.5-5.0) L 09/13/16 06:12 Albumin/Globulin Ratio 0.6 (1.1-2.2) L 09/13/16 06:12 TSH 4.973 mcIU/mL (0.350-4.840) H 09/10/16 15:25 Ur Specimen Adequacy See below A 09/10/16 15:43 Urine Clarity Hazy (Clear) A 09/10/16 15:43 Ur Specific Milmay > 1.030 (1.010-1.025) H 09/10/16 15:43 Urine Bilirubin Small (Negative) H 09/10/16 15:43 Urine Urobilinogen 2.0 mg/dL (Normal) H 09/10/16 15:43 Ur Leukocyte Esterase Moderate (Negative) H 09/10/16 15:43 Urine Microscopic RBC 5-15 per hpf (0-3) H 09/10/16 15:43 Urine Microscopic WBC 50-100 per hpf (0-3) H 09/10/16 15:43 Ur Squamous Epith Cells Many per lpf (None-Few) H 09/10/16 15:43 Ur Culture Indicated? YES (NO) A 09/10/16 15:43 Pleural RBC 0.003 M/mcL (0.000-0.002) H 09/12/16 12:56 Pleural Tot Nuc Cell 1925 TNC/mcL (0-1000) H 09/12/16 12:56 - Microbiology Findings Microbiology Findings: Microbiology, Last 48 Hours 09/12/16 13:00 Gram Stain - Final Pleural Fluid Body Fluid Culture - Final - Clinical Findings Intake & Output: Intake & Output 09/17/16 09/18/16 09/18/16 23:59 07:59 15:59 Intake Total 1300 / 1300 1000 / 1000 Output Total 0 / 0 Balance 1300 / 1300 1000 / 1000 Weight 61.7 kg - VTE Documentation of Mechanical Device: Graduated compression elastic hosiery Consult Discharge Plan - Plan Referrals: Wei Garza MD [Primary Care Provider] - 09/22/16 2:45 pm
--- NOTE | 2016-09-18 10:01 | Internal Med Progress Note ---
<JudahPk - Last Filed: 09/18/16 10:29> Date of Encounter: 09/18/16 Time of Encounter: 09:59 - Assessment and plan (1) Severe sepsis Current Visit: Yes Status: Acute Assessment and plan: Patient remains borderline hypotensive while on maintenance fluids, but tachycardia improved Discontinue fluids for now to see if her blood pressure stabilizes Will continue with antibiotics per ID recommendations: Doxy day 4 and Zosyn day 9 Blood cultures remain negative, and urine shows bush-sensitive Staph aureus Consult PT/OT/SS as she may need rehab/HH upon discharge given her weakness (2) Community acquired pneumonia Current Visit: Yes Status: Acute Assessment and plan: Management with antibiotic regimen as above for sepsis Qualifiers: Laterality: left Lung location: lower lobe of lung Qualified Code(s): J18.1 - Lobar pneumonia, unspecified organism (3) Pleural effusion, left Current Visit: Yes Status: Acute Assessment and plan: Likely from parapneumonic effusion which was drained and showed exudative fluid s/p chest tube placement; pulmonology have stated the will follow as outpatient She continues to improve, but may consider repeat imaging if she deteriorates (4) Transaminitis Current Visit: Yes Status: Resolved Assessment and plan: Likely secondary to shock liver due to severe sepsis Patient does not believe she had any tick bites that may have caused this transient rise (5) Anxiety Current Visit: Yes Status: Chronic Assessment and plan: May have been contributing to her tachycardia, but this has improved Continue Ativan as needed (6) DVT prophylaxis Current Visit: Yes Status: Acute Assessment and plan: Lovenox SQ - Subjective Interval history: Pt seen and examined. She continues to feel better with her breathing and only has some lateral chest discomfort where the chest tube was placed. She also reports a cough with clear sputum and some generalized weakness. She denies any shortness of breath while at rest and has not had any fever, chills, nausea, vomiting, diarrhea. - Constitutional Vitals: Temp Pulse Resp BP Pulse Ox 98.4 F 94 15 94/66 98 09/18/16 08:30 09/18/16 08:30 09/18/16 08:30 09/18/16 08:30 09/18/16 08:30 General appearance: Present: cooperative, pleasant, no acute distress, answers questions appropriately - Head Head exam: Present: atraumatic, normocephalic - Eye Eye exam: Present: PERRL, conjuntiva pink, sclera anicteric - Neck Neck exam general surgery: Present: supple, trachea midline. Absent: lymphadenopathy - Respiratory Respiratory exam: Present: decreased breath sounds (on left). Absent: accessory muscle use, rales, rhonchi, wheezes - Cardiovascular Cardiovascular exam: Present: RRR, +S1, +S2. Absent: diastolic murmur, gallop, rubs, systolic murmur - GI/Abdominal GI/Abdominal exam: Present: normal bowel sounds, soft, no peritoneal signs. Absent: distended, tenderness - Extremities Exam Extremities exam: Present: warm, radial pulses palpable and symetrical. Absent : calf tenderness, cyanotic, pedal edema - Neurological Exam Neurological exam: Present: alert, no focal deficits. Absent: facial droop, speech deficit - Skin Skin exam: Present: dry, intact Internal Medicine: Result - Labs CBC & Chem 7: 09/18/16 06:19 09/18/16 06:19 Labs: Short CBC 09/18/16 Range/Units 06:19 WBC 6.4 (4.3-11.1) K/mcL Hgb 11.9 (11.5-15.4) g/dL Hct 38.5 (35.3-44.9) % Plt Count 219 (140-400) K/mcL Neutrophils # 3.4 (1.6-8.9) K/mcL BMP 09/18/16 06:19 Sodium 143 Potassium 4.0 Chloride 109 Carbon Dioxide 24 BUN 8 Creatinine 0.52 L Glucose 93 Calcium 8.4 L - ABG Interpretation ABG results: PT/INR, D-dimer D-Dimer 743 ng/mLFEU (0-500) H 09/10/16 15:25 - VTE Documentation of Mechanical Device: Graduated compression elastic hosiery Consult Discharge Plan - Plan Referrals: Wei Garza MD [Primary Care Provider] - 09/22/16 2:45 pm <Chuck Aviles - Last Filed: 09/18/16 14:24> Date of Encounter: 09/18/16 - Assessment and plan (1) Acute respiratory failure Current Visit: Yes Status: Acute Qualifiers: Respiratory failure complication: hypoxia Qualified Code(s): J96.01 - Acute respiratory failure with hypoxia (2) Severe sepsis Current Visit: Yes Status: Acute (3) Community acquired pneumonia Current Visit: Yes Status: Acute Qualifiers: Laterality: left Lung location: lower lobe of lung Qualified Code(s): J18.1 - Lobar pneumonia, unspecified organism (4) Parapneumonic effusion Current Visit: Yes Status: Acute (5) Transaminitis Current Visit: Yes Status: Resolved - Constitutional Vitals: Temp Pulse Resp BP Pulse Ox 98.3 F 87 15 94/64 96 09/18/16 12:17 09/18/16 12:17 09/18/16 12:17 09/18/16 12:17 09/18/16 12:17 Internal Medicine: Result - Labs CBC & Chem 7: 09/18/16 06:19 09/18/16 06:19 Labs: Short CBC 09/18/16 Range/Units 06:19 WBC 6.4 (4.3-11.1) K/mcL Hgb 11.9 (11.5-15.4) g/dL Hct 38.5 (35.3-44.9) % Plt Count 219 (140-400) K/mcL Neutrophils # 3.4 (1.6-8.9) K/mcL BMP 09/18/16 06:19 Sodium 143 Potassium 4.0 Chloride 109 Carbon Dioxide 24 BUN 8 Creatinine 0.52 L Glucose 93 Calcium 8.4 L - ABG Interpretation ABG results: PT/INR, D-dimer D-Dimer 743 ng/mLFEU (0-500) H 09/10/16 15:25 - Attending Attestation I examined this patient and my medical decision-making was reviewed with the Resident Physician on 09/18/16. I agree with the documented findings, disposition and treatment plan as described except to the extent set forth below. Ms. Lomeli is currently admitted for acute hypoxic resp failure due to pneumonia and parapneumonic effusion. She remains moderate to high risk due to potential for worsening respiratory symptoms. Ms. Lomeli continues to slowly improve. She is still having pain from the chest tube. No fever or chills. Weaning oxygen. Some cough with clear sputum. Exam Alert Comfortable Mucus membranes dry Heart reg Lungs diminished but clear Abd soft No edema I/P 1. Hypoxia - wean oxygen. 6 minute walk test 2. Pneumonia with effusion Further diagnoses and plan as above.
[2016-09-18] MEDS: Gabapentin 400 MG CAPSULE PO SCH ×3 (10:13→20:44)
[2016-09-18] MEDS: Lactobacillus 1 EACH CAP.SPRINK PO SCH (10:13)
[2016-09-18] MEDS: *HR* HYDROmorphone (PF) 1 MG/ML SYRINGE IVP PRN ×2 (11:01→23:03)
[2016-09-18] MEDS: Ibuprofen 600 MG TABLET PO PRN (15:22)
[2016-09-19] MEDS: *HR* LORazepam 0.5 MG TABLET PO PRN ×2 (00:37→11:34)
[2016-09-19] MEDS: traZODone 50 MG TABLET PO SCH (00:37)
[2016-09-19] MEDS: Piperacillin/Tazobactam 3.375 GM in D5% in Water (Mini-Bag+) 100 ML IVPB SCH ×2 (03:48→11:36)
[2016-09-19] MEDS: Ibuprofen 600 MG TABLET PO PRN (03:49)
[2016-09-19 04:14] LABS: Basophils # 0.1 K/mcL (0.0-0.2); Basophils % 0.9 %; Eosinophils # 0.3 K/mcL (0.0-0.6); Eosinophils % 3.3 %; Hematocrit 39.8 % (35.3-44.9); Hemoglobin 12.7 g/dL (11.5-15.4); Immature Granulocytes % 1.1 % (0-4); Lymphocytes # 2.9 K/mcL (0.6-4.6); Lymphocytes % 30.9 %; Mean Corpuscular HGB Conc 31.9 g/dL (31.6-35.5); Mean Corpuscular Hemoglobin 30.6 pg (28.0-33.3); Mean Corpuscular Volume 95.9 fL (83.0-100.0); Mean Platelet Volume 9.7 fL (9.4-12.4); Monocytes # 0.5 K/mcL (0.0-1.3); Monocytes % 5.4 %; Neutrophils # 5.4 K/mcL (1.6-8.9); Platelet Count 349 K/mcL (140-400); Red Blood Count 4.15 M/mcL (3.82-4.97); Red Cell Distribution Width 12.5 % (11.5-14.5); Segmented Neutrophils % 58.4 %
[2016-09-19 04:28] LABS: BUN/Creatinine Ratio 20 (6-26); Blood Urea Nitrogen 11 mg/dL (7-20); Calcium 9.2 mg/dL (8.6-10.8); Carbon Dioxide 25 mEq/L (19-29); Chloride 107 mEq/L (98-109); Glucose 88 mg/dL (70-99); Osmolality,Calculated 297 (280-300); Potassium 4.2 mEq/L (3.5-4.5); Sodium 144 mEq/L (136-145); eGFR For African Americans > 60 (> 60); eGFR For Non-African Americans > 60 (> 60)
[2016-09-19] MEDS: Doxycycline 100 MG in 0.9 % Sodium Chloride Mini Bag 100 ML IVPB SCH (05:54)
[2016-09-19] MEDS: *HR* Enoxaparin 40 MG/0.4 ML SYRINGE SQ SCH (05:55)
[2016-09-19] MEDS: *HR* OxyCODONE/APAP 10/325 TABLET PO PRN ×2 (05:55→11:34)
[2016-09-19] MEDS: Gabapentin 400 MG CAPSULE PO SCH ×2 (09:16→14:44)
[2016-09-19] MEDS: Lactobacillus 1 EACH CAP.SPRINK PO SCH (09:16)
[2016-09-19] MEDS: *HR* HYDROmorphone (PF) 1 MG/ML SYRINGE IVP PRN (09:20)
--- NOTE | 2016-09-19 11:05 | Discharge Summary ---
<Julee Pimentel - Last Filed: 09/19/16 14:03> Date of Encounter: 09/19/16 Time of Encounter: 11:03 - Discharge Diagnosis (1) Sepsis Priority: Primary Status: Acute Qualifiers: Sepsis type: sepsis due to unspecified organism Qualified Code(s): A41.9 - Sepsis, unspecified organism (2) Community acquired pneumonia Priority: Secondary Status: Acute Qualifiers: Laterality: left Lung location: lower lobe of lung Qualified Code(s): J18.1 - Lobar pneumonia, unspecified organism (3) Transaminitis Priority: Secondary Status: Resolved (4) DVT prophylaxis Priority: Secondary Status: Acute - Discharge Medications Prescriptions: Ibuprofen [Motrin] 600 mg PO Q6HR PRN #56 tab PRN Reason: Moderate Pain (4-6)/Fever OxyCODONE/APAP 10/325 [Percocet 10/325 MG] 1 each PO Q6HR PRN #28 tab PRN Reason: Severe Pain (7-10) Amoxicillin/Clavulanate [Augmentin] 875 mg PO BIDWM #14 tablet Doxycycline 100 mg PO BID #18 capsule Lactobacillus [Culturelle] 1 each PO DAILY #30 tab Home Medications: Cholecalciferol (D-3) [Vitamin D] 1,000 unit PO DAILY 09/10/16 [History] Gabapentin [Neurontin] 800 mg PO TID 09/10/16 [History] Levothyroxine [Synthroid] 88 mcg PO DAILY 09/10/16 [History] Trazodone HCl 100 mg PO DAILY 09/10/16 [History] Amoxicillin/Clavulanate [Augmentin] 875 mg PO BIDWM #14 tablet 09/19/16 [Rx] Doxycycline 100 mg PO BID #18 capsule 09/19/16 [Rx] Ibuprofen [Motrin] 600 mg PO Q6HR PRN #56 tab 09/19/16 [Rx] Lactobacillus [Culturelle] 1 each PO DAILY #30 tab 09/19/16 [Rx] OxyCODONE/APAP 10/325 [Percocet 10/325 MG] 1 each PO Q6HR PRN #28 tab 09/19/16 [ Rx] Allergies/Adverse Reactions: Allergies promethazine [From Phenergan] Allergy (Verified 09/10/16 15:16) Cramping of the Muscles Tizanidine [From Zanaflex] Allergy (Verified 09/17/16 19:24) Cramping of the Muscles Date of admission: 09/10/16 16:55 Primary care physician: Wei Garza MD Consults: 09/11/16 10:10 Consult to Pulmonology [CONS] Routine Consulting Provider: [facility] [place] Reason for Consult: Right sided pleural effusion drainage Call Completed: Yes 09/12/16 12:54 Consult to Interventional Radiology [CONS] Stat Consulting Provider: Radiology Interventional [facility] Reason for Consult: thoracentesis for parapneumonic pleural effusion Call Completed: Yes 09/14/16 10:57 Consult to Cardiothoracic Surgery [CONS] Routine Consulting Provider: Cardiothoracic Surgery June Reason for Consult: persistent left hydropneumothorax, partially loculated, s /p chest tube removal, Call Completed: Yes 09/14/16 10:58 Consult to Pulmonology [CONS] Routine Consulting Provider: [facility] [place] Reason for Consult: parapneumonic effusion Call Completed: Yes 09/16/16 09:53 Consult to Invasive Line Access Team [CONS] Routine Reason for Consult: shelter IV ABX use Line Type: EPIV Time Notified: 09:53 09/18/16 10:02 Consult to Occupational Therapy [CONS] Routine Comment: Evaluate, develop and implement POC Reason for Consult: generalized weakness after pneumothorax, may need rehab/ HH upon DC Consult to Physical Therapy [CONS] Routine Comment: Evaluate, develop and implement POC Reason for Consult: generalized weakness after pneumothorax, may need rehab/ HH upon DC Consult to Pet Store Merchandiser [CONS] Routine Reason for SW Consult: generalized weakness after pneumothorax, may need rehab/HH upon DC - Patient Status Disposition: Home, Self-Care Condition: Good Functional capacity at discharge: independent ambulation Overall status at discharge: patient is progressing back to baseline - Discharge Instructions Instructions: Sepsis (DC) Follow Up With: Wei Garza MD [Primary Care Provider] - 09/22/16 2:45 pm Violetta Amanda MD [Partnered Physician] - 11/14/16 11:30 am (Please follow up as schedule...) Ellie Watkins, CIVIL DESIGNER [Advanced Practice Nurse] - Forms: ED Satisfaction Letter Additional Instructions: Please finish all antibiotics as prescribed. Follow up with Primary care doctor within one week of discharge Follow up with infectious disease and pulmonology. Continue incentive spirometry Please return to emergency department if you develop chest pain, shortness of breath, fever, or chills. - Diet and Activity Activity: increase activity as tolerated Diet: advance to your usual diet Hospital course: Ms. Lomeli is a 36 year old female with pMHx of hypothyroidism, anxiety, bipolar disroder, ADHD, panic disorder. Patient arrived to [facility] ED on 09/10/16 with CC of shortness of breath, fever, productive cough. SHe was diagnosed three weeks prior with pneumonia and failed treatment with azithromycin as outpatient. Patient was admitted for Sepsis secondary to community acquired pneumonia and was initiated on broad spectrum antibiotics. Chest CT showed left lower lobe and lingular pneumonia with moderate, partially loculated left parapneumonic pleural effusion. During the initial course of her hospital stay, patient did not seem to be clinically improving with broad spectrum antibiotics, so pulmonology was consulted for further recommendations. Patient had left sided thoracentesis with placement of pigtail catheter. Fluid analysis showed exudative plural effusion. Culture of pleural fluid showed no growth. Patient's blood and sputum cultures showed no growth as well. Urine culture grew MSSA. As she was continued on broad spectrum antibiotic coverage, she showed very little improvement. repeat chest CT showed peristent partially loculated left hydropneumothorax. consult to CT surgery was made for possible thoracotomy for loculated pleural effusion, and they recommended conservative management with continued antibiotic coverage. Patient had Levaquin discontinued and was started on empiric doxycycline at the recommendation of infectious disease. Patient had persistent tachycardia secondary to sepsis during most of her hospital stay. Echocardiogram was ordered to rule out underlying heart disease. Echo showed sinus tachycardia with LVEF 65%, normal LV size and systolic function, indeterminate diastolic function, no valvular dysfunction, no pulmonary hypertension. Patient improved drastically throughout the course of her hospital stay. she was eventually fully weaned off of her oxygen and was able to ambulate without problems. She was evaluated by PT/OT and they did not recommend any needs at discharge. She remained stable at at the time of discharge. follow up CT imaging will be done per pulmonology as outpatient, likely in about 6-8 weeks. Please finish all antibiotics as prescribed. Follow up with Primary care doctor within one week of discharge Follow up with infectious disease and pulmonology. Continue incentive spirometry Please return to emergency department if you develop chest pain, shortness of breath, fever, or chills. - Time Spent with Patient Total time spent providing and/or coordinating discharge services: - Constitutional Vitals: Temp Pulse Resp BP Pulse Ox 97.8 F 86 16 107/70 93 09/19/16 07:19 09/19/16 07:19 09/19/16 07:19 09/19/16 07:19 09/19/16 10:02 General appearance: Present: cooperative, pleasant, no acute distress, answers questions appropriately - Head Head exam: Present: atraumatic, normocephalic - Neck Neck exam general surgery: Present: supple, trachea midline - Respiratory Respiratory exam: Present: rales (left sided rales present. right side clear. ) - Cardiovascular Cardiovascular exam: Present: RRR, +S1, +S2 - GI/Abdominal GI/Abdominal exam: Present: normal bowel sounds, soft. Absent: distended, tenderness - Extremities Exam Extremities exam: Absent: cyanotic, pedal edema - Back Exam Back exam: Absent: CVA tenderness (L), CVA tenderness (R) - Neurological Exam Neurological exam: Present: alert, oriented X3, no focal deficits - Psychiatric Psychiatric exam: Present: normal affect, normal mood - Skin Skin exam: Absent: cyanosis - VTE Documentation of Mechanical Device: Graduated compression elastic hosiery <Chuck Aviles - Last Filed: 09/19/16 18:29> Date of Encounter: 09/19/16 - Discharge Diagnosis (1) Acute respiratory failure Priority: Primary Status: Acute Qualifiers: Respiratory failure complication: hypoxia Qualified Code(s): J96.01 - Acute respiratory failure with hypoxia (2) Severe sepsis Priority: Primary Status: Resolved (3) Community acquired pneumonia Status: Acute Qualifiers: Laterality: left Lung location: lower lobe of lung Qualified Code(s): J18.1 - Lobar pneumonia, unspecified organism (4) Parapneumonic effusion Priority: Primary Status: Acute (5) Transaminitis Status: Resolved (6) Lactic acidosis Priority: Secondary Status: Resolved (7) Hypothyroid Priority: Secondary Status: Chronic Qualifiers: Hypothyroidism type: acquired Qualified Code(s): E03.9 - Hypothyroidism, unspecified Date of admission: 09/10/16 16:55 Primary care physician: Wei Garza MD Consults: 09/11/16 10:10 Consult to Pulmonology [CONS] Routine Consulting Provider: [facility] [place] Reason for Consult: Right sided pleural effusion drainage Call Completed: Yes 09/12/16 12:54 Consult to Interventional Radiology [CONS] Stat Consulting Provider: Radiology Interventional Cols Reason for Consult: thoracentesis for parapneumonic pleural effusion Call Completed: Yes 09/14/16 10:57 Consult to Cardiothoracic Surgery [CONS] Routine Consulting Provider: Cardiothoracic Surgery June Reason for Consult: persistent left hydropneumothorax, partially loculated, s /p chest tube removal, Call Completed: Yes 09/14/16 10:58 Consult to Pulmonology [CONS] Routine Consulting Provider: [facility] Reason for Consult: parapneumonic effusion Call Completed: Yes 09/16/16 09:53 Consult to Invasive Line Access Team [CONS] Routine Reason for Consult: shelter IV ABX use Line Type: EPIV Time Notified: 09:53 09/18/16 10:02 Consult to Occupational Therapy [CONS] Routine Comment: Evaluate, develop and implement POC Reason for Consult: generalized weakness after pneumothorax, may need rehab/ HH upon DC Consult to Physical Therapy [CONS] Routine Comment: Evaluate, develop and implement POC Reason for Consult: generalized weakness after pneumothorax, may need rehab/ HH upon DC Consult to Pet Store Merchandiser [CONS] Routine Reason for SW Consult: generalized weakness after pneumothorax, may need rehab/HH upon DC Hospital course: Ms. Lomeli is a 36 year old female - Time Spent with Patient Total time spent providing and/or coordinating discharge services: 39min - Constitutional Vitals: Temp Pulse Resp BP Pulse Ox 98.0 F 95 16 99/72 96 09/19/16 11:00 09/19/16 11:00 09/19/16 11:00 09/19/16 11:00 09/19/16 11:00 - Attending Attestation I examined this patient and my medical decision-making was reviewed with the Resident Physician on 09/19/16. I agree with the documented findings, disposition and treatment plan as described except to the extent set forth below. Ms. Lomeli was admitted for acute resp failure due to pneumonia and parapneumonic effusion. She had chest tube placed but no empyema. She was on IV abx and had slow resolution of disease. Doxycycline added and she improved and was weaned off oxygen. Today she is afebrile and feeling well. Her vitals are stable and she is ready to go home on PO abx. Exam Alert. Comfortable Mucus membranes moist Heart reg No wheeze No edema Plan D/C home today on PO abx Follow up as outpatient.
[2016-09-19 11:14] VITALS: BP 99/72
--- NOTE | 2016-09-19 12:16 | Infectious Disease Progress No ---
Date of Encounter: 09/19/16 Time of Encounter: 12:14 - Assessment and Plan (1) Severe sepsis Current Visit: Yes Status: Acute The patient had two SIRS criteria plus lactic acidosis and elevated liver enzymes. Likely secondary to pneumonia and loculated pleural effusion. Improved. The patient has been afebrile. She continues to have tachycardia, but appears less frequent. Lactic acidosis has resolved. Elevated liver enzymes are improved. Blood cultures drawn 09/10/16 are negative x 2 sets. (2) Community acquired pneumonia Current Visit: Yes Status: Acute Location: Left lower lobe. Failed outpatient therapy. Causative organism unclear. Sputum culture interpreted as NURTF. S. pneumo and Legionella UAT are negative. Given that the patient does not have any underlying comorbid conditions that would explain why the patient failed outpatient oral antibiotic therapy in combination with elevated LFTs, concern for possible tickborne illness. The patient denies any known tick bites and has not been outside for any prolonged period of time. CT chest showed LLL and left lingular pneumonia and moderate, partially loculated left parapneumonic pleural effusion. Continue doxycycline 100mg IV BID. Continue Zosyn 3.375 grams IV Q8H. Duration of treatment depends on the clinical picture, but may be able to switch to orals when ready for discharge if the patient continues to improve. Would recommend Augmentin and doxycyline to complete a 14 day course. Treat through 09/26/16. Qualifiers: Laterality: left Lung location: lower lobe of lung Qualified Code(s): J18.1 - Lobar pneumonia, unspecified organism (3) Pleural effusion, left Current Visit: Yes Status: Acute Likely parapneumonic secondary to LLL pneumonia. Status post CT-guided drain placement. 20ml straw-colored fluid drained. Appears exudative, but culture is negative. Repeat CT scan shows redemonstration of partially loculated left hydropneumothorax. CTS has been consulted. Discussed case with Dr. Zaidi. Given that the patient continues to improve, no surgical intervention required at this time, but if patient declines, may need to consider thoracotomy with decortication. Continue antibiotics as above. Duration depends on the clinical picture. Continue serial chest imaging to evaluate for improvement. (4) Lactic acidosis Current Visit: Yes Status: Resolved Likely secondary to sepsis. Resolved. (5) Transaminitis Current Visit: Yes Status: Resolved Etiology unclear: sepsis vs. tickborne illness vs. other. Improved. Abdominal exam benign. Continue to trend. (6) Anxiety Current Visit: Yes Status: Chronic - Subjective Interval history: Patient seen and examined. Weekend notes reviewed. No acute events noted overnight. Patient states that she continues to get better every day and is able to be off O2 now. She continue to report dyspnea on exertion and a cough productive of clear sputum, but states it is improving slowly. She continues to report some left-sided chest and back pain. She denies any nausea, vomiting, diarrhea, or constipation. She states her appetite is normal. She denies any abdominal pain. She denies any urinary complaints. She denies any arthralgias, rashes, or oral thrush. Infect Dis PN-Objective Data - Labs CBC & Chem 7: 09/19/16 03:44 09/19/16 03:44 Labs: Laboratory Results - last 24 hr 09/19/16 09/19/16 03:44 03:44 WBC 9.3 RBC 4.15 Hgb 12.7 Hct 39.8 MCV 95.9 MCH 30.6 MCHC 31.9 RDW 12.5 Plt Count 349 D MPV 9.7 Immature Gran % 1.1 Seg Neutrophils % 58.4 Lymphocytes % 30.9 Monocytes % 5.4 Eosinophils % 3.3 Basophils % 0.9 Neutrophils # 5.4 Lymphocytes # 2.9 Monocytes # 0.5 Eosinophils # 0.3 Basophils # 0.1 Sodium 144 Potassium 4.2 Chloride 107 Carbon Dioxide 25 BUN 11 Creatinine 0.54 L Est GFR ( Amer) > 60 Est GFR (Non-Af Amer) > 60 BUN/Creatinine Ratio 20 Glucose 88 Calculated Osmolality 297 Calcium 9.2 Cultures: Cultures 09/12/16 13:00 Gram Stain - Final Pleural Fluid Body Fluid Culture - Final 09/10/16 23:30 Sputum Culture - Final Sputum Serology 09/12/16 Range/Units 12:56 Pleural Fluid Volume 20.0 mL Pleural Appearance Clear (Clear) Pleural pH 7.50 (No Ref Range) pH Units Pleural RBC 0.003 H (0.000 - 0.002) M/mcL Pleural Tot Nuc Cell 1925 H (0-1000) TNC/mcL Pleural Neutrophils 90.0 % Pleural Band Neuts 3.0 % Pleural Eosinophils Test Not Performed Pleural Basophils Test Not Performed Pleural Lymphocytes % 6.0 % Pleural Monocytes % Test Not Performed Pleural Other Cells % 1.0 % Pleural Total Protein 2.9 (No Ref Range) g/dL Pleural LDH 802 (No Ref Range) Units/L Pleural Glucose 57 (No Ref Range) mg/dL Exam - Constitutional Vitals: Temp Pulse Resp BP Pulse Ox 98.0 F 95 16 99/72 96 09/19/16 11:00 09/19/16 11:00 09/19/16 11:00 09/19/16 11:00 09/19/16 11:00 General appearance: average body habitus, cooperative, no acute distress - Head Head exam: Present: atraumatic, normal inspection, normocephalic - Eye Eye exam: Present: EOMI, normal appearance, PERRL Pupils: Present: normal accommodation - ENT ENT exam: Present: mucous membranes moist - Neck Neck exam: Present: normal inspection - Respiratory Respiratory exam: Present: CTAB, rales (left posterior base). Absent: respiratory distress, rhonchi, wheezes - Cardiovascular Cardiovascular exam: Present: RRR, +S1, +S2 - GI/Abdominal GI/Abdominal exam: Present: normal bowel sounds, soft. Absent: distended, tenderness - Extremities Exam Extremities exam: Present: normal inspection. Absent: joint swelling, pedal edema, tenderness - Back Exam Back exam: Present: normal inspection. Absent: paraspinal tenderness, vertebral tenderness Additional comments: Previous chest tube site to the left back with dressing C/D/I. - Neurological Exam Neurological exam: Present: alert, oriented X3, no focal deficits - Psychiatric Psychiatric exam: Present: normal affect, normal mood - Skin Skin exam: Present: dry, intact, normal color, warm - VTE Documentation of Mechanical Device: Graduated compression elastic hosiery Consult Discharge Plan - Plan Instructions: Sepsis (DC) Additional Instructions: Please finish all antibiotics as prescribed. Follow up with Primary care doctor within one week of discharge Follow up with infectious disease and pulmonology. Continue incentive spirometry Please return to emergency department if you develop chest pain, shortness of breath, fever, or chills. Referrals: Wei Garza MD [Primary Care Provider] - 09/22/16 2:45 pm Violetta Amanda MD [Partnered Physician] - Ellie Watkins, MEASURER MACHINE [Advanced Practice Nurse] - Prescriptions: Ibuprofen [Motrin] 600 mg PO Q6HR PRN #56 tab PRN Reason: Moderate Pain (4-6)/Fever OxyCODONE/APAP 10/325 [Percocet 10/325 MG] 1 each PO Q6HR PRN #28 tab PRN Reason: Severe Pain (7-10) Amoxicillin/Clavulanate [Augmentin] 875 mg PO BIDWM #14 tablet Doxycycline 100 mg PO BID #18 capsule Lactobacillus [Culturelle] 1 each PO DAILY #30 tab - Attending Attestation I examined this patient and my medical decision-making was reviewed with the Resident Physician. I agree with the documented findings, disposition and treatment plan as described except to the extent set forth below.
[2016-09-19] MEDS ORDERED: Aminoglycoside Consult 1 EACH MC ONE (15:38)
== END 2016-09-19 15:39 | disposition home or self-care (01) | DRG 720 ==
LOC: 2ANU 15:02 → EMEROO 15:02 → SUATTDRO 16:55 → 2ANU 17:41
PROVIDERS: ADMIT Family Medicine; ATTEND Internal Medicine